=== PATIENT | female | born 1980 | race Caucasian/White ===

== ENCOUNTER 2016-07-10 09:15 | Emergency (ER) | payer MEDICAID ==
[2016-07-10 09:40] VITALS: BP 111/72
[2016-07-10] MEDS ORDERED: HYDROXYZINE PAMOATE 50 MG CAPSULE PO ONE (09:41)
--- NOTE | 2016-07-10 09:49 | ER Document Report ---
ED General - General Chief Complaint: Psych Problem Stated Complaint: PSYCH EVAL/MEDICATION TRAVEL OUTSIDE OF THE U.S. IN LAST 30 DAYS: No - HPI Patient complains to provider of: anxiety Notes: Patient abrasion 2 weeks ago was on train left for [place] came back up in [place]. The patient used to live in [place] patient has a history of a TBI and anxiety issues currently on carbamazepine Ativan and Seroquel patient states she 's been unable to follow-up with the provider since this time is currently out of her Ativan is going to extreme anxiety. Patient otherwise denies any homicidal suicidal thoughts. Otherwise patient looks to be calm vital signs are normal at this time. - Related Data Allergies/Adverse Reactions: aspirin Allergy (Verified 07/10/16 09:20) fluoxetine [From Prozac] Allergy (Verified 07/10/16 09:20) iodine Allergy (Verified 07/10/16 09:20) lithium Allergy (Verified 07/10/16 09:20) paroxetine [From Paxil] Allergy (Verified 07/10/16 09:20) Penicillins Allergy (Verified 07/10/16 09:20) tramadol Allergy (Verified 07/10/16 09:20) Past Medical History - Social History Smoking Status: Unknown if Ever Smoked Family History: Reviewed & Not Pertinent Patient has suicidal ideation: Yes Patient has homicidal ideation: No Renal/ Medical History: Denies: Hx Peritoneal Dialysis Review of Systems - Review of Systems Constitutional: No symptoms reported EENT: No symptoms reported Cardiovascular: No symptoms reported Respiratory: No symptoms reported Gastrointestinal: No symptoms reported Genitourinary: No symptoms reported Female Genitourinary: No symptoms reported Musculoskeletal: No symptoms reported Skin: No symptoms reported Hematologic/Lymphatic: No symptoms reported Neurological/Psychological: Other - Anxiety -: Yes All other systems reviewed and negative Physical Exam - Vital signs Vitals: Temp Pulse Resp BP Pulse Ox 97.6 F 79 18 111/72 99 07/10/16 09:18 07/10/16 09:18 07/10/16 09:18 07/10/16 09:18 07/10/16 09:18 Interpretation: Normal - General General appearance: Appears well, Alert - HEENT Head: Normocephalic, Atraumatic Eyes: Normal Pupils: PERRL - Respiratory Respiratory status: No respiratory distress Chest status: Nontender Breath sounds: Normal Chest palpation: Normal - Cardiovascular Rhythm: Regular Heart sounds: Normal auscultation Murmur: No - Abdominal Inspection: Normal Distension: No distension Bowel sounds: Normal Tenderness: Nontender Organomegaly: No organomegaly - Back Back: Normal, Nontender - Extremities General upper extremity: Normal inspection, Nontender, Normal color, Normal ROM , Normal temperature General lower extremity: Normal inspection, Nontender, Normal color, Normal ROM , Normal temperature, Normal weight bearing. No: Mia's sign - Neurological Neuro grossly intact: Yes Cognition: Normal Orientation: AAOx4 Steward Coma Scale Eye Opening: Spontaneous Steward Coma Scale Verbal: Oriented Steward Coma Scale Motor: Obeys Commands Steward Coma Scale Total: 15 Speech: Normal Motor strength normal: LUE, RUE, LLE, RLE Sensory: Normal - Psychological Associated symptoms: Normal affect, Normal mood - Skin Skin Temperature: Warm Skin Moisture: Dry Skin Color: Normal Course - Re-evaluation Re-evalutation: 07/10/16 10:05 Patient coming in for medication refill evaluation of her anxiety. Patient is accompanied royer she claims is her father however the gentleman states that he is a retired base remover he has been taking care of the patient for last 2 weeks as that she does not have any other family here in [place]. States that her mother lives up in [place]. States that apparently her friends in [place] their own train ended up here in [place]. States that they tried multiple places of which he does name to [place] for the patient be evaluated at however states to no avail patient has not gotten any help. They have denies going to [facility] states a digit contact [facility] and was told to come to the ER at [facility] that she could not be seen at [facility] until she was seen at the [facility] the emergency room. I explained that the patient can be seen in any emergency room in the [facility] for medical clearance examination.. Explained to the patient and to the trauma room at this time patient does not need any IVC criteria also explained that we do not refill prescriptions for controlled substances however at this time we will give the patient a prescription for this drill and give her a dose of Vistaril. Patient becomes upset at this stating that Vistaril does not work for. I explained to the patient that we will give her resources of which to close will be A. No signs of any acute withdrawals medications at this time. At this time patient after explaining we will not refill her Ativan does become agitated however no acute psychosis no homicidal no suicidal ideation is present. Patient looks to be appropriate follow-up as outpatient for her psychiatric needs. - Vital Signs Vital signs: Temp Pulse Resp BP Pulse Ox 97.6 F 79 18 111/72 99 07/10/16 09:18 07/10/16 09:18 07/10/16 09:18 07/10/16 09:18 07/10/16 09:18 Discharge - Discharge Clinical Impression: Anxiety Condition: Good Disposition: HOME, SELF-CARE Instructions: Anxiety (PENDING SALE TO [facility]), Family Physicians / Practices Additional Instructions: Follow-up with the doctors provided. Take medication as prescribed Prescriptions: Hydroxyzine Pamoate [Vistaril 50 mg Capsule] 50 mg PO DAILY #30 capsule Forms: Return to Work
== END 2016-07-10 09:49 | disposition home or self-care (01) ==
LOC: ER 09:15
DX: F41.9 Anxiety disorder, unspecified (principal); Z87.820 Personal history of traumatic brain injury; Z79.899 Other long term (current) drug therapy; Z88.6 Allergy status to analgesic agent; Z88.8 Allergy status to other drugs, medicaments and biological substances; Z88.0 Allergy status to penicillin; Z88.5 Allergy status to narcotic agent
CPT/HCPCS: 99283; J3490

== ENCOUNTER 2016-08-04 19:38 | Emergency (ER) | payer MEDICAID, OTHER ==
[2016-08-04 20:01] VITALS: BP 130/85
[2016-08-04] MEDS ORDERED: HYDROCODONE/ACETAMINOPHEN 5-325 MG TABLET PO ONE (20:51)
[2016-08-04] MEDS ORDERED: LIDOCAINE 5% (700 MG) TRANSDERMAL ADH..PATCH TP ONE (20:51)
--- NOTE | 2016-08-04 20:53 | ER Document Report ---
HPI - HPI Patient complains to provider of: low back pain Onset: Other - 2 weks Onset/Duration: Persistent Quality of pain: Sharp Pain Level: 5 Context: Presents complaining of low back pain for the past 2 weeks. Patient states she was seen in urgent care for this 2 weeks ago and had an injection to her left buttock area. Patient states she followed up with them again a week later and had a repeat injection to the left hip area. Patient is concerned that the injections have caused her to have pain in her left lower extremity. Patient denies any paresthesia or urinary retention or incontinence. Patient denies any fever. Associated Symptoms: Other - low back pain. denies: Fever Exacerbated by: Movement Relieved by: Denies Similar symptoms previously: No Recently seen / treated by doctor: Yes - ROS ROS below otherwise negative: Yes Systems Reviewed and Negative: Yes All other systems reviewed and negative - CONSTITUTIONAL Constitutional: DENIES: Fever, Chills - NEURO Neurology: DENIES: Headache, Weakness - GASTROINTESTINAL Gastrointestinal: DENIES: Nausea, Patient vomiting - URINARY Urinary: DENIES: Dysuria - MUSCULOSKELETAL Musculoskeletal: REPORTS: Extremity pain - Left posterior leg pain, Back Pain Notes: pain to left posterior leg to level of distal thigh - DERM Skin Color: Normal Skin Problems: None Past Medical History - General Information source: Patient - Social History Smoking Status: Never Smoker Frequency of alcohol use: None Drug Abuse: None Lives with: Family Family History: Reviewed & Not Pertinent Patient has suicidal ideation: No Patient has homicidal ideation: No Neurological Medical History: Reports: Hx Cerebrovascular Accident Renal/ Medical History: Denies: Hx Peritoneal Dialysis Psychiatric Medical History: Reports: Hx Anxiety, Hx Post Traumatic Stress Disorder Traumatic Medical History: Reports: Hx Traumatic Brain Injury Past Surgical History: Reports: Hx Hysterectomy, Other - trach-with reversal - Immunizations Hx Diphtheria, Pertussis, Tetanus Vaccination: No Vertical Provider Document - CONSTITUTIONAL Agree With Documented VS: Yes Exam Limitations: No Limitations General Appearance: WD/WN, No Apparent Distress - INFECTION CONTROL TRAVEL OUTSIDE OF THE [place].S. IN LAST 30 DAYS: No - HEENT HEENT: Atraumatic, Normocephalic - NECK Neck: Normal Inspection, Supple - RESPIRATORY Respiratory: Breath Sounds Normal, No Respiratory Distress, Chest Non-Tender O2 Sat by Pulse Oximetry: 98 - CARDIOVASCULAR Cardiovascular: Regular Rate, Regular Rhythm, No Murmur - BACK Back: Abnormal Inspection - left lower lumbar paraspinal tenderness, no deformity or step off. negative: CVA Tenderness-Right, CVA Tenderness-Left - MUSCULOSKELETAL/EXTREMETIES Musculoskeletal/Extremeties: JEANCARLOS SINGH - NEURO Level of Consciousness: Awake, Alert, Appropriate Motor/Sensory: No Motor Deficit, No Sensory Deficit Notes: no saddle anesthesia, no foot drop - DERM Integumentary: Warm, Dry, No Rash Course - Re-evaluation Re-evalutation: 08/04/16 20:52 The patient presents with low back pain without signs of spinal cord compression , cauda equina syndrome, infection, aneurysm, or other serious etiology. The patient is neurologically intact. Given the extremely risk of these diagnoses further testing and evaluation for these possibilities does not appear to be indicated at this time. Patient has been instructed to return if the symptoms worsen or change in any way. - Vital Signs Vital signs: Temp Pulse Resp BP Pulse Ox 97.9 F 89 18 130/85 H 98 08/04/16 19:58 08/04/16 19:58 08/04/16 19:58 08/04/16 19:58 08/04/16 19:58 Discharge - Discharge Clinical Impression: Low back pain Qualifiers: Chronicity: unspecified Back pain laterality: left Sciatica presence: with sciatica Sciatica laterality: sciatica of left side Qualified Code(s): M54.42 - Lumbago with sciatica, left side Sciatica Qualifiers: Laterality: left Qualified Code(s): M54.32 - Sciatica, left side Condition: Stable Disposition: HOME, SELF-CARE Instructions: Ice Packs ([facility]), Oral Narcotic Medication ([facility]), Warm Packs ([facility]) , Low Back Pain ([facility]), Sciatica ([facility]), Steroid Medication Additional Instructions: return as needed for any new or worsening symptoms follow up with your primary care provider Sunday for a recheck Prescriptions: Hydrocodone/Acetaminophen [[place] 5-325 Tablet] 1 each PO TID PRN #15 tablet PRN Reason: Prednisone [Deltasone 20 mg Tablet] 3 tab PO DAILY 4 Days Referrals: [facility] [Provider Group] - Follow up as needed
[2016-08-04] MEDS ORDERED: PREDNISONE 20 MG TABLET PO ONE (20:54)
== END 2016-08-04 21:10 | disposition home or self-care (01) ==
LOC: ER 19:38
DX: M54.42 Lumbago with sciatica, left side (principal); M54.32 Sciatica, left side; M54.5 Low back pain
CPT/HCPCS: 99283; J3490; J7512

== ENCOUNTER 2016-11-14 13:47 | Emergency (ER) | payer MEDICAID ==
[2016-11-14] MEDS ORDERED: LORAZEPAM 1 MG TABLET PO ONE (14:21)
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
[2016-11-14 15:02] LABS: ABSOLUTE EOSINOPHILS # (AUTO) 0.1 10^3/uL (0.0-0.6); ABSOLUTE LYMPHOCYTES (AUTO) 2.4 10^3/uL (0.5-4.7); ABSOLUTE MONOCYTES (AUTO) 0.5 10^3/uL (0.1-1.4); ABSOLUTE NEUT (AUTO) 8.6 10^3/uL (1.7-8.2); BASOPHILS % (AUTO) 0.4 % (0-2); EOSINOPHILS % (AUTO) 0.8 % (0-6); HEMATOCRIT 42.5 % (36.0-47.0); HEMOGLOBIN 13.7 g/dL (12.0-15.5); HGB HCT DIFFERENCE -1.4; LYMPHOCYTES % (AUTO) 20.5 % (13-45); MEAN CORPUSCULAR HEMOGLOBIN 30.4 pg (27.0-33.4); MEAN CORPUSCULAR HGB CONC 32.3 g/dL (32.0-36.0); MEAN CORPUSCULAR VOLUME 94 fl (80-97); MONOCYTES % (AUTO) 4.5 % (3-13); RED BLOOD COUNT 4.51 10^6/uL (3.72-5.28); RED CELL DISTRIBUTION WIDTH 13.3 % (11.5-14.0); SEGMENTED NEUTROPHILS % (AUTO) 73.8 % (42-78); WHITE BLOOD COUNT 11.7 10^3/uL (4.0-10.5)
[2016-11-14 15:27] LABS: ALANINE AMINOTRANSFERASE 14 U/L (9-52); ALKALINE PHOSPHATASE 60 U/L (38-126); ANION GAP 16 (5-19); ASPARTATE AMINO TRANSFERASE 18 U/L (14-36); BILIRUBIN,DIRECT 0.4 mg/dL (0.0-0.4); BILIRUBIN,TOTAL 0.9 mg/dL (0.2-1.3); BLOOD UREA NITROGEN 15 mg/dL (7-20); CALCIUM 10.4 mg/dL (8.4-10.2); CARBON DIOXIDE 21 mmol/L (22-30); CHLORIDE 102 mmol/L (98-107); CREATININE RESULT 0.56 mg/dL (0.52-1.25); GLUCOSE 77 mg/dL (75-110); POTASSIUM 3.8 mmol/L (3.6-5.0); SODIUM 139.4 mmol/L (137-145); TOTAL PROTEIN 7.8 g/dL (6.3-8.2)
[2016-11-14 15:31] LABS: ALCOHOL < 10 mg/dL (NONE DETECTED)
[2016-11-14] MEDS ORDERED: ZIPRASIDONE MESYLATE INJ/PF 20 MG SDV IM ONE (15:47)
[2016-11-14] MEDS ORDERED: BENZTROPINE MESYLATE INJ 2 MG/2 ML AMPULE IM ONE (15:48)
[2016-11-14 16:15] LABS: AMORPHOUS SEDIMENT,URINE TRACE /HPF; APPEARANCE,URINE TURBID; BILIRUBIN,URINE NEGATIVE (NEGATIVE); GLUCOSE, URINE NEGATIVE (NEGATIVE); KETONES,URINE 80 mg/dL (NEGATIVE); LEUKOCYTE ESTERASE,URINE TRACE (NEGATIVE); NITRITE,URINE NEGATIVE (NEGATIVE); PROTEIN,URINE 100 mg/dL (NEGATIVE); URINE SPECIFIC GRAVITY 1.032; UROBILINOGEN,URINE NEGATIVE mg/dL (<2.0)
[2016-11-14 16:31] LABS: URINE BARBITURATES SCREEN NEGATIVE; URINE METHADONE SCREEN NEGATIVE; URINE OPIATES LOW NEGATIVE; URINE PHENCYCLIDINE SCREEN NEGATIVE
--- NOTE | 2016-11-14 17:24 | ER Document Report ---
ED Psych Disorder / Suicide - General Information source: Patient, Law Enforcement - pt arrived via [employer], under IVC petition, [facility] Records TRAVEL OUTSIDE OF THE [place] IN LAST 30 DAYS: No - HPI Patient complains to provider of: Aggression, Agitated, Bizarre behavior Onset: Other Onset was: Cannot confirm Normal mood: No Associated symptoms: Agitated, Combative, Flight of ideas, Uncooperative Similar symptoms previously: Yes Recently seen / treated by doctor: No - unknown <JASON GSAPAR - Last Filed: 11/14/16 17:21> <SUZANNE DENIS - Last Filed: 11/15/16 09:57> <ELIAS HERNÁNDEZ - Last Filed: 11/15/16 10:03> - General Chief Complaint: Psych Problem Stated Complaint: PSYCH EVAL Time Seen by Provider: 11/14/16 13:59 - HPI Notes: Patient arrives via [employer] under IVC, petitioned by mobile crisis. Patient reportedly had a knife in the community and was attempting to commit suicide. Patient received medications to assist her in remaining safe, and for the safety of others. Patient will be reevaluated at a later time, likely in the morning. (JASON GASPAR) - Related Data Allergies/Adverse Reactions: aspirin Allergy (Verified 07/10/16 09:20) fluoxetine [From Prozac] Allergy (Verified 07/10/16 09:20) iodine Allergy (Verified 07/10/16 09:20) lithium Allergy (Verified 07/10/16 09:20) paroxetine [From Paxil] Allergy (Verified 07/10/16 09:20) Penicillins Allergy (Verified 07/10/16 09:20) tramadol Allergy (Verified 07/10/16 09:20) Past Medical History - General Information source: Law Enforcement - Social History Smoking Status: Current Some Day Smoker - Admits to marijuana use Chew tobacco use (# tins/day): No Frequency of alcohol use: None Drug Abuse: Marijuana Family History: Reviewed & Not Pertinent Neurological Medical History: Reports: Hx Cerebrovascular Accident, Hx Seizures Renal/ Medical History: Denies: Hx Peritoneal Dialysis Psychiatric Medical History: Reports: Hx Anxiety, Hx Post Traumatic Stress Disorder Traumatic Medical History: Reports: Hx Traumatic Brain Injury Past Surgical History: Reports: Hx Hysterectomy, Other - trach-with reversal - Immunizations Hx Diphtheria, Pertussis, Tetanus Vaccination: No <JASON GASPAR - Last Filed: 11/14/16 17:21> - Vital signs Vitals: Temp Pulse Resp BP Pulse Ox 97.5 F 59 L 16 113/70 93 11/14/16 17:06 11/14/16 17:06 11/14/16 17:06 11/14/16 17:06 11/14/16 17:06 Course - Laboratory Result Diagrams: 11/14/16 14:45 11/14/16 14:45 <JASON GASPAR - Last Filed: 11/14/16 17:21> - Laboratory Result Diagrams: 11/14/16 14:45 11/14/16 14:45 <SUZANNE DENIS - Last Filed: 11/15/16 09:57> - Laboratory Result Diagrams: 11/14/16 14:45 11/14/16 14:45 <ELIAS HERNÁNDEZ - Last Filed: 11/15/16 10:03> - Vital Signs Vital signs: Temp Pulse Resp BP Pulse Ox 98.5 F 64 14 104/56 L 93 11/14/16 19:08 11/14/16 19:08 11/14/16 19:08 11/14/16 19:08 11/14/16 19:08 - Laboratory Laboratory results interpreted by me: 11/14/16 11/14/16 11/14/16 14:45 14:45 14:52 WBC 11.7 H Absolute Neutrophils 8.6 H Carbon Dioxide 21 L Calcium 10.4 H Urine Protein Urine Ketones Ur Leukocyte Esterase Salicylates < 1.0 L Acetaminophen < 10 L Carbamazepine < 2.4 L 11/14/16 14:52 WBC Absolute Neutrophils Carbon Dioxide Calcium Urine Protein 100 H Urine Ketones 80 H Ur Leukocyte Esterase TRACE H Salicylates Acetaminophen Carbamazepine Discharge <JASON GASPAR - Last Filed: 11/14/16 17:21> <SUZANNE DENIS - Last Filed: 11/15/16 09:57> <ELIAS HERNÁNDEZ - Last Filed: 11/15/16 10:03> - Discharge Clinical Impression: Shawn Condition: Stable Disposition: HOME, SELF-CARE Additional Instructions: Bipolar Disorder (TBI symptoms can mimic) Bipolar disorder is also called manic-depressive disorder. Depression alternates with brain hyperactivity called shawn. Each phase lasts from several days to a few weeks. We don't know exactly what causes bipolar disorder , but it's treatable. During the "manic phase," you may feel elated and energetic. You may have racing thoughts, rapid speech, increased activity, and grandiose ideas. During this time, you may not realize how poor your judgement is. Inappropriate spending, drug abuse, excessive alcohol use, marriage problems, and irresponsible sexual behavior are common during the manic phase. During the "depressive phase," you might feel depressed, guilty, worthless , fatigued, and unable to concentrate. You might have thoughts of suicide. Good treatments are available for bipolar disorder. [place] is a classic drug for bipolar disorder, and is still often useful. If the manic phase is very mild, an antidepressant alone can be prescribed. If the manic phase is very severe, an antipsychotic medicine (such as Haldol) may be needed. The treatment must be matched to your symptoms, so it's important to work closely with your psychiatric care provider. Contact your physician, the hospital emergency center, crisis line, or your counsellor if you are losing control or having self-destructive thoughts. Follow-up: You are to follow up with your outpatient provider at [facility] [place] today as a walk in. [facility] aware of plan. Referrals: [facility] [Outside] - 11/15/16
[2016-11-14] MEDS: OLANZAPINE 5 MG TABLET PO SCH (19:09)
--- NOTE | 2016-11-14 20:13 | EKG REPORT ---
SEVERITY:- ABNORMAL ECG - SINUS ARRHYTHMIA, RATE 50-71 CONSIDER LEFT VENTRICULAR HYPERTROPHY : Confirmed by: Gino Ruvalcaba 14-Nov-2016 20:12:31
[2016-11-15] MEDS: OLANZAPINE 5 MG TABLET PO SCH (07:55)
[2016-11-15] MEDS ORDERED: BENZTROPINE MESYLATE 1 MG TABLET PO SCH (10:00)
--- NOTE | 2016-11-15 10:02 | ER Document Report ---
Doctor's Note Notes: 11/15/16 10:01 Rounds: Chart reviewed and patient reviewed. Vital signs are normal. Lab studies have been essentially normal. White count of 11,700, but no shift. Patient appears to be medically stable for transfer or discharge. Patient has been assessed by mental health and feels she can be discharged to follow-up today at [facility]. Claribel Pollack MD
[2016-11-15 10:17] VITALS: BP 131/87
== END 2016-11-15 10:10 | disposition home or self-care (01) ==
LOC: ER 13:47
DX: F30.9 Manic episode, unspecified (principal); F17.200 Nicotine dependence, unspecified, uncomplicated; Z86.73 Personal history of transient ischemic attack (TIA), and cerebral infarction without residual deficits; Z87.820 Personal history of traumatic brain injury; Z90.710 Acquired absence of both cervix and uterus; Z88.0 Allergy status to penicillin; Z88.6 Allergy status to analgesic agent
CPT/HCPCS: 93005; 99285; 96372; 36415; 80307 ×4; 80156; 84703; 85025; 80053; 81001; 93010; J3490 ×3; J0515; J3486

== ENCOUNTER 2016-11-24 12:45 | Emergency (ER) | payer MEDICAID, OTHER ==
[2016-11-24] MEDS ORDERED: PREDNISONE 20 MG TABLET PO ONE (13:11)
[2016-11-24] MEDS ORDERED: IPRATROPIUM/ALBUTEROL 0.5-2.5 MG/3 ML AMPUL NEB ONE (13:11)
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
[2016-11-24] MEDS ORDERED: ALBUTEROL SULFATE HFA (90 MCG/PUFF) 8 GM MDI (1 MDI/ER DISP) IH ONE (14:19)
--- NOTE | 2016-11-24 14:23 | RADIOLOGY REPORT (SQ) ---
EXAM DESCRIPTION: CHEST PA/LAT COMPLETED DATE/TIME: 11/24/2016 2:14 pm REASON FOR STUDY: diff breathing COMPARISON: None. EXAM PARAMETERS: NUMBER OF VIEWS: two views TECHNIQUE: Digital Frontal and Lateral radiographic views of the chest acquired. RADIATION DOSE: NA LIMITATIONS: none FINDINGS: LUNGS AND PLEURA: No opacities, masses or pneumothorax. No pleural effusion. MEDIASTINUM AND HILAR STRUCTURES: No masses or contour abnormalities. HEART AND VASCULAR STRUCTURES: Heart normal size. No evidence for failure. BONES: No acute findings. HARDWARE: None in the chest. OTHER: No other significant finding. IMPRESSION: NO SIGNIFICANT RADIOGRAPHIC FINDING IN THE CHEST. TECHNICAL DOCUMENTATION: JOB ID: [id number] [employer]- All Rights Reserved
[2016-11-24 14:42] VITALS: BP 145/78
== END 2016-11-24 14:42 | disposition home or self-care (01) ==
LOC: ER 12:45 → EEVIPCON 12:45 → ER 14:42
DX: J45.901 Unspecified asthma with (acute) exacerbation (principal); R05 Cough; F41.9 Anxiety disorder, unspecified; Z79.899 Other long term (current) drug therapy
CPT/HCPCS: 94640; 99285; 71020; J7512; J3490; J7620

== ENCOUNTER 2016-11-26 14:21 | Emergency (ER) | payer OTHER, MEDICAID ==
[2016-11-26 14:41] VITALS: BP 101/54
[2016-11-26] MEDS ORDERED: HALOPERIDOL 5 MG TABLET PO ONE (14:42)
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
[2016-11-26] MEDS ORDERED: LORAZEPAM 1 MG TABLET PO PRN (14:51)
[2016-11-26 15:04] LABS: APPEARANCE,URINE CLOUDY; BILIRUBIN,URINE NEGATIVE (NEGATIVE); GLUCOSE, URINE NEGATIVE (NEGATIVE); KETONES,URINE TRACE mg/dL (NEGATIVE); LEUKOCYTE ESTERASE,URINE NEGATIVE (NEGATIVE); NITRITE,URINE NEGATIVE (NEGATIVE); PROTEIN,URINE 100 mg/dL (NEGATIVE); URINE SPECIFIC GRAVITY 1.029; UROBILINOGEN,URINE NEGATIVE mg/dL (<2.0)
[2016-11-26 15:20] LABS: URINE BARBITURATES SCREEN NEGATIVE; URINE METHADONE SCREEN NEGATIVE; URINE OPIATES LOW NEGATIVE; URINE PHENCYCLIDINE SCREEN NEGATIVE
[2016-11-26 15:44] LABS: ALANINE AMINOTRANSFERASE 16 U/L (9-52); ALBUMIN 4.6 g/dL (3.5-5.0); ALKALINE PHOSPHATASE 51 U/L (38-126); ANION GAP 10 (5-19); ASPARTATE AMINO TRANSFERASE 13 U/L (14-36); BILIRUBIN,DIRECT 0.4 mg/dL (0.0-0.4); BILIRUBIN,TOTAL 0.4 mg/dL (0.2-1.3); BLOOD UREA NITROGEN 10 mg/dL (7-20); CALCIUM 10.2 mg/dL (8.4-10.2); CARBON DIOXIDE 22 mmol/L (22-30); CHLORIDE 106 mmol/L (98-107); CREATININE RESULT 0.48 mg/dL (0.52-1.25); GLUCOSE 117 mg/dL (75-110); POTASSIUM 4.1 mmol/L (3.6-5.0); SODIUM 137.5 mmol/L (137-145); TOTAL PROTEIN 7.2 g/dL (6.3-8.2)
[2016-11-26 15:45] LABS: ALCOHOL < 10 mg/dL (NONE DETECTED)
[2016-11-26 15:53] LABS: HEMATOCRIT 38.4 % (36.0-47.0); HEMOGLOBIN 12.9 g/dL (12.0-15.5); HGB HCT DIFFERENCE 0.3; MEAN CORPUSCULAR HEMOGLOBIN 30.8 pg (27.0-33.4); MEAN CORPUSCULAR HGB CONC 33.6 g/dL (32.0-36.0); MEAN CORPUSCULAR VOLUME 92 fl (80-97); RED BLOOD COUNT 4.19 10^6/uL (3.72-5.28); RED CELL DISTRIBUTION WIDTH 13.2 % (11.5-14.0); WHITE BLOOD COUNT 16.3 10^3/uL (4.0-10.5)
[2016-11-26 15:56] LABS: BASOPHILS % (MANUAL) 0 % (0-2); EOSINOPHILS % (MANUAL) 0 % (0-6); LYMPHOCYTES % (MANUAL) 4 % (13-45); RBC MORPHOLOGY COMMENT NORMO-CYTIC/CHROMIC; TOTAL CELLS COUNTED 100
--- NOTE | 2016-11-26 16:26 | EKG REPORT ---
SEVERITY:- BORDERLINE ECG - SINUS RHYTHM PROBABLE LEFT ATRIAL ABNORMALITY : Confirmed by: Duncan Barboza MD 26-Nov-2016 16:26:01
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
== END 2016-11-26 16:57 | disposition home or self-care (01) ==
LOC: ER 14:21
DX: F31.9 Bipolar disorder, unspecified (principal); R06.00 Dyspnea, unspecified; F17.200 Nicotine dependence, unspecified, uncomplicated; Z88.6 Allergy status to analgesic agent; Z88.0 Allergy status to penicillin; Z87.820 Personal history of traumatic brain injury; Z59.0 Homelessness; Z86.73 Personal history of transient ischemic attack (TIA), and cerebral infarction without residual deficits; Z90.710 Acquired absence of both cervix and uterus
CPT/HCPCS: 36415; 80053; 80307; 81001; 85025; 93005; 93010; 99285

== ENCOUNTER 2016-12-22 11:16 | Emergency (ER) | payer MEDICAID, OTHER ==
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
[2016-12-22 11:38] VITALS: BP 107/74
== END 2016-12-22 13:05 | disposition home or self-care (01) ==
LOC: ER 11:16
DX: R55 Syncope and collapse (principal); R53.1 Weakness; M79.1 Myalgia; Y09 Assault by unspecified means; Z87.820 Personal history of traumatic brain injury; Z88.6 Allergy status to analgesic agent; Z88.0 Allergy status to penicillin; Z86.73 Personal history of transient ischemic attack (TIA), and cerebral infarction without residual deficits; Z90.710 Acquired absence of both cervix and uterus
CPT/HCPCS: 99284

== ENCOUNTER 2017-02-15 19:03 | Emergency (ER) | payer MEDICAID ==
[2017-02-15 19:28] VITALS: BP 132/84
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
== END 2017-02-15 20:05 | disposition left against medical advice (07) ==
LOC: ER 19:03 → EEVIPCON 19:03 → ER 20:05
DX: F41.9 Anxiety disorder, unspecified (principal); Z53.20 Procedure and treatment not carried out because of patient's decision for unspecified reasons; M54.2 Cervicalgia; J45.909 Unspecified asthma, uncomplicated; F17.200 Nicotine dependence, unspecified, uncomplicated; Z88.0 Allergy status to penicillin; Z88.5 Allergy status to narcotic agent; Z88.8 Allergy status to other drugs, medicaments and biological substances; Z88.6 Allergy status to analgesic agent
CPT/HCPCS: 99281

== ENCOUNTER 2017-02-19 17:09 | Emergency (ER) | payer MEDICAID ==
[2017-02-19] MEDS ORDERED: LORAZEPAM 1 MG TABLET PO ONE (17:50)
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
[2017-02-19 18:44] LABS: ABSOLUTE BASOPHILS # (AUTO) 0.1 10^3/uL (0.0-0.2); ABSOLUTE EOSINOPHILS # (AUTO) 0.1 10^3/uL (0.0-0.6); ABSOLUTE LYMPHOCYTES (AUTO) 2.9 10^3/uL (0.5-4.7); ABSOLUTE MONOCYTES (AUTO) 0.7 10^3/uL (0.1-1.4); BASOPHILS % (AUTO) 0.8 % (0-2); EOSINOPHILS % (AUTO) 1.1 % (0-6); HEMATOCRIT 40.8 % (36.0-47.0); HGB HCT DIFFERENCE 1.2; LYMPHOCYTES % (AUTO) 24.4 % (13-45); MEAN CORPUSCULAR HEMOGLOBIN 30.9 pg (27.0-33.4); MEAN CORPUSCULAR HGB CONC 34.2 g/dL (32.0-36.0); MEAN CORPUSCULAR VOLUME 90 fl (80-97); MONOCYTES % (AUTO) 5.7 % (3-13); RED BLOOD COUNT 4.52 10^6/uL (3.72-5.28); RED CELL DISTRIBUTION WIDTH 13.2 % (11.5-14.0); WHITE BLOOD COUNT 11.8 10^3/uL (4.0-10.5)
[2017-02-19 19:03] LABS: ALANINE AMINOTRANSFERASE 23 U/L (9-52); ALBUMIN 4.5 g/dL (3.5-5.0); ALKALINE PHOSPHATASE 53 U/L (38-126); ANION GAP 12 (5-19); ASPARTATE AMINO TRANSFERASE 23 U/L (14-36); BILIRUBIN,DIRECT 0.3 mg/dL (0.0-0.4); BILIRUBIN,TOTAL 0.7 mg/dL (0.2-1.3); BLOOD UREA NITROGEN 12 mg/dL (7-20); CALCIUM 9.8 mg/dL (8.4-10.2); CARBON DIOXIDE 24 mmol/L (22-30); CHLORIDE 105 mmol/L (98-107); CREATININE RESULT 0.54 mg/dL (0.52-1.25); GLUCOSE 88 mg/dL (75-110); LIPASE 94.9 U/L (23-300); POTASSIUM 3.6 mmol/L (3.6-5.0); SODIUM 141.3 mmol/L (137-145); TOTAL PROTEIN 7.2 g/dL (6.3-8.2)
[2017-02-19 19:06] LABS: APPEARANCE,URINE CLOUDY; BILIRUBIN,URINE MODERATE (NEGATIVE); GLUCOSE, URINE NEGATIVE (NEGATIVE); KETONES,URINE 20 mg/dL (NEGATIVE); LEUKOCYTE ESTERASE,URINE MODERATE (NEGATIVE); NITRITE,URINE NEGATIVE (NEGATIVE); PROTEIN,URINE 100 mg/dL (NEGATIVE); URINE SPECIFIC GRAVITY 1.041
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
[2017-02-19 19:35] VITALS: BP 121/77
== END 2017-02-19 19:51 | disposition home or self-care (01) ==
LOC: ER 17:09
DX: N39.0 Urinary tract infection, site not specified (principal); R31.9 Hematuria, unspecified; R10.13 Epigastric pain; M54.2 Cervicalgia; M25.512 Pain in left shoulder; Y04.0XXA Assault by unarmed brawl or fight, initial encounter; Z87.891 Personal history of nicotine dependence
CPT/HCPCS: 36415; 80053; 81001; 81025; 83690; 85025; 99284

== ENCOUNTER 2017-03-10 09:14 | Emergency (ER) | payer OTHER ==
[2017-03-10 09:30] VITALS: BP 108/58
== END 2017-03-10 10:30 ==
LOC: ER 09:14
DX: Z53.9 Procedure and treatment not carried out, unspecified reason (principal); M79.1 Myalgia

== ENCOUNTER 2017-05-09 21:05 | Emergency (ER) | payer MEDICAID, OTHER ==
--- NOTE | 2017-05-09 22:21 | EKG REPORT ---
SEVERITY:- BORDERLINE ECG - SINUS TACHYCARDIA PROBABLE LEFT ATRIAL ABNORMALITY : Confirmed by: Gino Ruvalcaba 09-May-2017 22:20:34
[2017-05-09] MEDS ORDERED: LIDOCAINE 5% (700 MG) TRANSDERMAL ADH..PATCH TP ONE (22:49)
[2017-05-09] MEDS ORDERED: NAPROXEN 250 MG TABLET PO ONE (22:49)
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
[2017-05-09 23:10] LABS: APPEARANCE,URINE CLEAR; BILIRUBIN,URINE NEGATIVE (NEGATIVE); COLOR,URINE STRAW; GLUCOSE, URINE NEGATIVE (NEGATIVE); KETONES,URINE NEGATIVE (NEGATIVE); LEUKOCYTE ESTERASE,URINE NEGATIVE (NEGATIVE); NITRITE,URINE NEGATIVE (NEGATIVE); PROTEIN,URINE NEGATIVE (NEGATIVE); URINE SPECIFIC GRAVITY 1.006; UROBILINOGEN,URINE NEGATIVE mg/dL (<2.0)
[2017-05-09 23:13] LABS: URINE AMPHETAMINES SCREEN NEGATIVE; URINE BARBITURATES SCREEN NEGATIVE; URINE BENZODIAZEPINES SCREEN NEGATIVE; URINE COCAINE SCREEN NEGATIVE; URINE MARIJUANA (THC) SCREEN UNCONFIRMED POSITIVE; URINE METHADONE SCREEN NEGATIVE; URINE PHENCYCLIDINE SCREEN NEGATIVE
[2017-05-09 23:16] VITALS: BP 120/79
== END 2017-05-09 23:16 | disposition home or self-care (01) ==
LOC: ER 21:05
DX: S16.1XXA Strain of muscle, fascia and tendon at neck level, initial encounter (principal); X58.XXXA Exposure to other specified factors, initial encounter; Z87.820 Personal history of traumatic brain injury; Z88.6 Allergy status to analgesic agent; Z91.040 Latex allergy status; Z88.0 Allergy status to penicillin; Z90.710 Acquired absence of both cervix and uterus
CPT/HCPCS: 80307; 81001; 81025; 93005; 93010; 99284

== ENCOUNTER 2017-06-20 21:47 | Emergency (ER) | payer MEDICAID ==
[2017-06-20] MEDS ORDERED: ZIPRASIDONE MESYLATE INJ/PF 20 MG SDV IM ONE (22:06)
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
[2017-06-20] MEDS ORDERED: IBUPROFEN 600 MG TABLET PO ONE (22:51)
--- NOTE | 2017-06-20 22:53 | RADIOLOGY REPORT (SQ) ---
EXAM DESCRIPTION: SHOULDER LEFT 2 OR MORE VIEWS COMPLETED DATE/TIME: 06/20/2017 10:33 pm REASON FOR STUDY: left shoulder pain COMPARISON: None. NUMBER OF VIEWS: Three views. TECHNIQUE: Internal rotation, external rotation, and Y view images acquired of the left shoulder. LIMITATIONS: None. FINDINGS: MINERALIZATION: Normal. BONES: No acute fracture or dislocation. No worrisome bone lesions. JOINTS: No dislocation. VISUALIZED LUNGS AND RIBS: No pneumothorax. No rib fracture. SOFT TISSUES: No radiopaque foreign body. OTHER: No other significant finding. IMPRESSION: NO RADIOGRAPHIC EVIDENCE OF ACUTE INJURY. TECHNICAL DOCUMENTATION: JOB ID: [id number] [place]-72 2010 [employer]- All Rights Reserved Reading location - IP/workstation name: [email or web address]
--- NOTE | 2017-06-20 22:54 | RADIOLOGY REPORT (SQ) ---
EXAM DESCRIPTION: TIBIA FIBULA LEFT COMPLETED DATE/TIME: 06/20/2017 10:33 pm REASON FOR STUDY: left art pain COMPARISON: None. NUMBER OF VIEWS: Two views. TECHNIQUE: Two radiographic images acquired of the left tibia and fibula to include the knee and ank le in at least one projection. LIMITATIONS: None. FINDINGS: MINERALIZATION: Normal. BONES: No acute fracture or dislocation. No worrisome bone lesions. SOFT TISSUES: No obvious swelling or foreign body. OTHER: No other significant finding. IMPRESSION: NO RADIOGRAPHIC EVIDENCE OF ACUTE INJURY. TECHNICAL DOCUMENTATION: JOB ID: [id number] [place]-72 2010 [employer]- All Rights Reserved Reading location - IP/workstation name: [email or web address]
--- NOTE | 2017-06-20 22:56 | RADIOLOGY REPORT (SQ) ---
EXAM DESCRIPTION: FEMUR LEFT COMPLETED DATE/TIME: 06/20/2017 10:33 pm REASON FOR STUDY: left thigh pain COMPARISON: None. NUMBER OF VIEWS: Two views. TECHNIQUE: Two radiographic images acquired of the left femur to include hip and knee in at least on e projection. LIMITATIONS: None. FINDINGS: MINERALIZATION: Normal. BONES: No acute fracture. 10 mm subcortical cyst in the anterior femoral head-neck junction. SOFT TISSUES: No obvious swelling or foreign body. OTHER: No other significant finding. IMPRESSION: NO RADIOGRAPHIC EVIDENCE OF ACUTE INJURY. TECHNICAL DOCUMENTATION: JOB ID: [id number] [place]-72 2010 [employer]- All Rights Reserved Reading location - IP/workstation name: [email or web address]
[2017-06-20 23:17] VITALS: BP 125/76
== END 2017-06-20 23:05 | disposition home or self-care (01) ==
LOC: ER 21:47
DX: S40.012A Contusion of left shoulder, initial encounter (principal); S70.12XA Contusion of left thigh, initial encounter; S80.12XA Contusion of left lower leg, initial encounter; M25.512 Pain in left shoulder; M79.605 Pain in left leg; M79.652 Pain in left thigh; W03.XXXA Other fall on same level due to collision with another person, initial encounter; F41.9 Anxiety disorder, unspecified; F32.9 Major depressive disorder, single episode, unspecified; Z87.820 Personal history of traumatic brain injury; F17.200 Nicotine dependence, unspecified, uncomplicated; J45.909 Unspecified asthma, uncomplicated
CPT/HCPCS: 99283; 73552; 73030; 73590; J3490

== ENCOUNTER 2017-09-11 17:07 | Emergency (ER) | payer MEDICAID ==
[2017-09-11 17:18] VITALS: BP 103/63
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
== END 2017-09-11 17:57 | disposition home or self-care (01) ==
LOC: ER 17:07
DX: S01.112D Laceration without foreign body of left eyelid and periocular area, subsequent encounter (principal); X58.XXXD Exposure to other specified factors, subsequent encounter; J45.909 Unspecified asthma, uncomplicated

== ENCOUNTER 2017-09-19 15:57 | Emergency (ER) | payer MEDICAID ==
[2017-09-19 16:06] VITALS: BP 126/93
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
[2017-09-19 17:03] LABS: ABSOLUTE EOSINOPHILS # (AUTO) 0.1 10^3/uL (0.0-0.6); ABSOLUTE LYMPHOCYTES (AUTO) 2.6 10^3/uL (0.5-4.7); ABSOLUTE MONOCYTES (AUTO) 0.7 10^3/uL (0.1-1.4); ABSOLUTE NEUT (AUTO) 6.7 10^3/uL (1.7-8.2); BASOPHILS % (AUTO) 0.4 % (0-2); EOSINOPHILS % (AUTO) 1.5 % (0-6); HEMATOCRIT 36.7 % (36.0-47.0); HEMOGLOBIN 12.6 g/dL (12.0-15.5); LYMPHOCYTES % (AUTO) 25.7 % (13-45); MEAN CORPUSCULAR HEMOGLOBIN 31.2 pg (27.0-33.4); MEAN CORPUSCULAR HGB CONC 34.3 g/dL (32.0-36.0); MEAN CORPUSCULAR VOLUME 91 fl (80-97); MONOCYTES % (AUTO) 6.4 % (3-13); PLATELET COUNT 222 10^3/uL (150-450); RED BLOOD COUNT 4.04 10^6/uL (3.72-5.28); RED CELL DISTRIBUTION WIDTH 13.8 % (11.5-14.0); TOTAL CELLS COUNTED % (AUTO) 100 %; WHITE BLOOD COUNT 10.2 10^3/uL (4.0-10.5)
[2017-09-19 17:19] LABS: APPEARANCE,URINE SLIGHTLY-CLOUDY; BILIRUBIN,URINE NEGATIVE (NEGATIVE); COLOR,URINE YELLOW; GLUCOSE, URINE NEGATIVE (NEGATIVE); KETONES,URINE 20 mg/dL (NEGATIVE); LEUKOCYTE ESTERASE,URINE LARGE (NEGATIVE); NITRITE,URINE NEGATIVE (NEGATIVE); PROTEIN,URINE NEGATIVE (NEGATIVE); URINE SPECIFIC GRAVITY 1.009; UROBILINOGEN,URINE NEGATIVE mg/dL (<2.0)
[2017-09-19 17:22] LABS: ALANINE AMINOTRANSFERASE 20 U/L (9-52); ALBUMIN 4.6 g/dL (3.5-5.0); ALKALINE PHOSPHATASE 55 U/L (38-126); ANION GAP 13 (5-19); ASPARTATE AMINO TRANSFERASE 22 U/L (14-36); BILIRUBIN,DIRECT 0.2 mg/dL (0.0-0.4); BILIRUBIN,TOTAL 0.7 mg/dL (0.2-1.3); BLOOD UREA NITROGEN 9 mg/dL (7-20); CALCIUM 9.7 mg/dL (8.4-10.2); CARBON DIOXIDE 24 mmol/L (22-30); CHLORIDE 104 mmol/L (98-107); GLUCOSE 91 mg/dL (75-110); POTASSIUM 3.6 mmol/L (3.6-5.0); SODIUM 141.4 mmol/L (137-145); TOTAL PROTEIN 7.5 g/dL (6.3-8.2)
[2017-09-19 17:24] LABS: URINE AMPHETAMINES SCREEN NEGATIVE; URINE BARBITURATES SCREEN NEGATIVE; URINE BENZODIAZEPINES SCREEN NEGATIVE; URINE COCAINE SCREEN NEGATIVE; URINE MARIJUANA (THC) SCREEN UNCONFIRMED POSITIVE; URINE METHADONE SCREEN NEGATIVE; URINE PHENCYCLIDINE SCREEN NEGATIVE
[2017-09-19 17:25] LABS: ACETAMINOPHEN < 10 ug/mL (10-30); ALCOHOL < 10 mg/dL (NONE DETECTED); SALICYLATE < 1.0 mg/dL (2.0-20.0)
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
--- NOTE | 2017-09-19 22:02 | EKG REPORT ---
SEVERITY:- ABNORMAL ECG - SINUS RHYTHM CONSIDER LEFT VENTRICULAR HYPERTROPHY : Confirmed by: Gino Ruvalcaba 19-Sep-2017 22:01:49
== END 2017-09-19 17:40 | disposition left against medical advice (07) ==
LOC: ER 15:57
DX: R45.851 Suicidal ideations (principal); S09.90XA Unspecified injury of head, initial encounter; S67.22XA Crushing injury of left hand, initial encounter; Y04.8XXA Assault by other bodily force, initial encounter; Z88.6 Allergy status to analgesic agent; Z91.040 Latex allergy status; Z88.0 Allergy status to penicillin; Z90.710 Acquired absence of both cervix and uterus; Z87.820 Personal history of traumatic brain injury; Z86.73 Personal history of transient ischemic attack (TIA), and cerebral infarction without residual deficits
CPT/HCPCS: 36415; 70450; 80053; 80307; 81001; 84703; 85025; 93005; 93010; 99281

== ENCOUNTER 2018-02-22 00:27 | Emergency (ER) | payer MEDICAID ==
[2018-02-22] MEDS ORDERED: HALOPERIDOL LACTATE INJ 5 MG/1 ML VIAL IV ONE (00:52)
[2018-02-22] MEDS ORDERED: DIAZEPAM INJ 10 MG/2 ML DISP.SYRIN IV ONE (00:53)
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
[2018-02-22 01:14] LABS: ABSOLUTE BASOPHILS # (AUTO) 0.1 10^3/uL (0.0-0.2); ABSOLUTE EOSINOPHILS # (AUTO) 0.4 10^3/uL (0.0-0.6); ABSOLUTE LYMPHOCYTES (AUTO) 3.7 10^3/uL (0.5-4.7); ABSOLUTE MONOCYTES (AUTO) 0.9 10^3/uL (0.1-1.4); ABSOLUTE NEUT (AUTO) 8.6 10^3/uL (1.7-8.2); BASOPHILS % (AUTO) 0.9 % (0-2); EOSINOPHILS % (AUTO) 2.9 % (0-6); HEMATOCRIT 39.5 % (36.0-47.0); HEMOGLOBIN 13.4 g/dL (12.0-15.5); LYMPHOCYTES % (AUTO) 27.2 % (13-45); MEAN CORPUSCULAR HEMOGLOBIN 31.6 pg (27.0-33.4); MEAN CORPUSCULAR VOLUME 93 fl (80-97); MONOCYTES % (AUTO) 6.4 % (3-13); PLATELET COUNT 249 10^3/uL (150-450); RED BLOOD COUNT 4.24 10^6/uL (3.72-5.28); RED CELL DISTRIBUTION WIDTH 13.5 % (11.5-14.0); SEGMENTED NEUTROPHILS % (AUTO) 62.6 % (42-78); TOTAL CELLS COUNTED % (AUTO) 100 %; WHITE BLOOD COUNT 13.7 10^3/uL (4.0-10.5)
[2018-02-22 01:31] LABS: ACETAMINOPHEN < 10 ug/mL (10-30); ALANINE AMINOTRANSFERASE 13 U/L (9-52); ALBUMIN 4.6 g/dL (3.5-5.0); ALCOHOL < 10 mg/dL (NONE DETECTED); ALKALINE PHOSPHATASE 63 U/L (38-126); ANION GAP 10 (5-19); ASPARTATE AMINO TRANSFERASE 20 U/L (14-36); BILIRUBIN,DIRECT 0.2 mg/dL (0.0-0.4); BILIRUBIN,TOTAL 0.3 mg/dL (0.2-1.3); BLOOD UREA NITROGEN 14 mg/dL (7-20); CALCIUM 9.9 mg/dL (8.4-10.2); CARBON DIOXIDE 23 mmol/L (22-30); CHLORIDE 105 mmol/L (98-107); GLUCOSE 110 mg/dL (75-110); POTASSIUM 4.3 mmol/L (3.6-5.0); SALICYLATE < 1.0 mg/dL (2.0-20.0); SODIUM 137.9 mmol/L (137-145); TOTAL PROTEIN 7.3 g/dL (6.3-8.2)
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
[2018-02-22] MEDS ORDERED: LORAZEPAM 0.5 MG TABLET PO ONE (06:36)
--- NOTE | 2018-02-22 07:55 | EKG REPORT ---
SEVERITY:- NORMAL ECG - SINUS RHYTHM : Confirmed by: Duncan Barboza MD 22-Feb-2018 07:54:53
--- NOTE | 2018-02-22 09:18 | ER Document Report ---
Doctor's Note Notes: Patient presented last night acutely manic, extremely pressured speech, racing thoughts, unable to provide clear or cogent history. Oscillating between anger, crying, smiling rapidly. Does not appear to be overtly responding to internal stimuli but does have a known history of shawn and appears to be off all medications by her own report. 02/22/18 09:18 As the rounding physician this AM, I assessed the patient's labs, vitals, and records. No concerning findings this morning. Patient denies any acute complaints. Patient is cleared for disposition by psychiatry. After extensive researching by our psychology team they received medical records from [place] which clearly show the patient to be a drug seeker, malingerer. IVC was rescinded and patient was discharged home with no medication recommendations. PHYSICAL EXAMINATION: GENERAL: Well-appearing, well-nourished and in no acute distress. HEAD: Atraumatic, normocephalic. EYES: Pupils equal round extraocular movements intact, conjunctiva are normal. ENT: Nares patent NECK: Normal range of motion LUNGS: No respiratory distress Musculoskeletal: Normal range of motion NEUROLOGICAL: Normal speech, normal gait. PSYCH: Denies suicidal ideation. SKIN: Warm, Dry, normal turgor, no rashes or lesions noted. 02/22/18 18:20 02/22/18 18:22
[2018-02-22 10:45] VITALS: BP 108/60
[2018-02-22 11:08] LABS: APPEARANCE,URINE CLEAR; BILIRUBIN,URINE NEGATIVE (NEGATIVE); COLOR,URINE YELLOW; GLUCOSE, URINE NEGATIVE (NEGATIVE); KETONES,URINE NEGATIVE (NEGATIVE); LEUKOCYTE ESTERASE,URINE NEGATIVE (NEGATIVE); NITRITE,URINE NEGATIVE (NEGATIVE); PROTEIN,URINE NEGATIVE (NEGATIVE); UROBILINOGEN,URINE NEGATIVE mg/dL (<2.0)
[2018-02-22 11:23] LABS: URINE AMPHETAMINES SCREEN NEGATIVE; URINE BARBITURATES SCREEN NEGATIVE; URINE BENZODIAZEPINES SCREEN UNCONFIRMED POSITIVE; URINE COCAINE SCREEN NEGATIVE; URINE MARIJUANA (THC) SCREEN UNCONFIRMED POSITIVE; URINE METHADONE SCREEN NEGATIVE; URINE PHENCYCLIDINE SCREEN NEGATIVE
[2018-02-22] MEDS ORDERED: LANSOPRAZOLE 30 MG TAB.RAP.DR PO SCH (13:00)
[2018-02-22] MEDS ORDERED: GABAPENTIN 300 MG CAPSULE PO SCH (14:00)
[2018-02-22] MEDS ORDERED: GABAPENTIN 400 MG CAPSULE PO SCH (14:00)
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
[2018-02-23] MEDS ORDERED: (PENDING PHARMACY ID) (Esomeprazole Mag Trihydrate [Nexium] 40 MG) PO SCH (10:00)
== END 2018-02-22 13:24 | disposition home or self-care (01) ==
LOC: ER 00:27
DX: R45.1 Restlessness and agitation (principal); F30.9 Manic episode, unspecified; M79.602 Pain in left arm; R45.4 Irritability and anger
CPT/HCPCS: 93005; 99285; 96374; 96375; 36415; 80307 ×4; 84703; 85025; 80053; 81001; 84484; 71045; 93010; J3360; J1630

== ENCOUNTER 2018-02-24 17:49 | Emergency (ER) | payer MEDICAID | END 2018-02-24 18:35 | disposition left against medical advice (07) | LOC: ER 17:49 | DX: Z53.21 Procedure and treatment not carried out due to patient leaving prior to being seen by health care provider (principal) ==

== ENCOUNTER 2018-02-25 02:00 | Emergency (ER) | payer MEDICAID ==
[2018-02-25 02:33] VITALS: BP 130/76
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
[2018-02-25] MEDS ORDERED: ACETAMINOPHEN 325 MG TABLET PO ONE (03:37)
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
== END 2018-02-25 04:50 | disposition home or self-care (01) ==
LOC: ER 02:00 → EEVIPCON 02:00 → ER 04:50
DX: F60.89 Other specific personality disorders (principal); R45.1 Restlessness and agitation; Z88.0 Allergy status to penicillin; Z88.8 Allergy status to other drugs, medicaments and biological substances; Z88.6 Allergy status to analgesic agent; Z91.040 Latex allergy status
CPT/HCPCS: 72070; 72110; 72170; 99284

== ENCOUNTER 2018-02-28 12:39 | Emergency (ER) | payer MEDICAID ==
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
[2018-02-28 13:39] LABS: ABSOLUTE EOSINOPHILS # (AUTO) 0.1 10^3/uL (0.0-0.6); ABSOLUTE LYMPHOCYTES (AUTO) 1.6 10^3/uL (0.5-4.7); ABSOLUTE MONOCYTES (AUTO) 0.4 10^3/uL (0.1-1.4); ABSOLUTE NEUT (AUTO) 4.8 10^3/uL (1.7-8.2); BASOPHILS % (AUTO) 0.5 % (0-2); EOSINOPHILS % (AUTO) 1.6 % (0-6); HEMATOCRIT 37.2 % (36.0-47.0); HEMOGLOBIN 12.7 g/dL (12.0-15.5); LYMPHOCYTES % (AUTO) 23.4 % (13-45); MEAN CORPUSCULAR HEMOGLOBIN 31.4 pg (27.0-33.4); MEAN CORPUSCULAR HGB CONC 34.2 g/dL (32.0-36.0); MEAN CORPUSCULAR VOLUME 92 fl (80-97); MONOCYTES % (AUTO) 5.3 % (3-13); PLATELET COUNT 237 10^3/uL (150-450); RED BLOOD COUNT 4.05 10^6/uL (3.72-5.28); RED CELL DISTRIBUTION WIDTH 13.1 % (11.5-14.0); SEGMENTED NEUTROPHILS % (AUTO) 69.2 % (42-78); TOTAL CELLS COUNTED % (AUTO) 100 %
[2018-02-28 14:00] LABS: ALANINE AMINOTRANSFERASE 8 U/L (9-52); ALBUMIN 4.1 g/dL (3.5-5.0); ALKALINE PHOSPHATASE 49 U/L (38-126); ANION GAP 6 (5-19); ASPARTATE AMINO TRANSFERASE 25 U/L (14-36); BILIRUBIN,DIRECT 0.2 mg/dL (0.0-0.4); BILIRUBIN,TOTAL 0.3 mg/dL (0.2-1.3); BLOOD UREA NITROGEN 13 mg/dL (7-20); CALCIUM 9.6 mg/dL (8.4-10.2); CARBON DIOXIDE 26 mmol/L (22-30); CHLORIDE 106 mmol/L (98-107); GLUCOSE 104 mg/dL (75-110); POTASSIUM 4.1 mmol/L (3.6-5.0); SODIUM 138.3 mmol/L (137-145); TOTAL PROTEIN 6.5 g/dL (6.3-8.2)
[2018-02-28 14:03] LABS: ACETAMINOPHEN < 10 ug/mL (10-30); ALCOHOL < 10 mg/dL (NONE DETECTED); SALICYLATE < 1.0 mg/dL (2.0-20.0)
--- NOTE | 2018-02-28 14:28 | RADIOLOGY REPORT (SQ) ---
EXAM DESCRIPTION: CT HEAD WITHOUT COMPLETED DATE/TIME: 02/28/2018 2:20 pm REASON FOR STUDY: 3hw; fall COMPARISON: None. TECHNIQUE: Axial images acquired through the brain without intravenous contrast. Images reviewed wi th bone, brain and subdural windows. Additional sagittal and coronal reconstructions were generated. Images stored on PACS. All CT scanners at this facility use dose modulation, iterative reconstruction, and/or weight based d osing when appropriate to reduce radiation dose to as low as reasonably achievable (ALARA). [facility]: Dose Right [facility]: CareDose [facility]: Dose Right [facility]: Teradose 4D [facility]: Smart Char Software RADIATION DOSE: CT Rad equipment meets quality standard of care and radiation dose reduction techniq ues were employed. CTDIvol: 23.1 mGy. DLP: 453 mGy-cm. mGy. LIMITATIONS: None. FINDINGS: VENTRICLES: Normal size and contour. CEREBRUM: No masses. No hemorrhage. No midline shift. No evidence for acute infarction. Normal gra y/white matter differentiation. No areas of low density in the white matter. CEREBELLUM: No masses. No hemorrhage. No alteration of density. No evidence for acute infarction. EXTRAAXIAL SPACES: No fluid collections. No masses. ORBITS AND GLOBE: No intra- or extraconal masses. Normal contour of globe without masses. CALVARIUM: No fracture. PARANASAL SINUSES: No fluid or mucosal thickening. SOFT TISSUES: Soft tissue hematoma over the left forehead. OTHER: No other significant finding. IMPRESSION: NO ACUTE INTRACRANIAL IMAGING FINDINGS. EVIDENCE OF ACUTE STROKE: NO. COMMENT: Quality ID # [id number]: Final reports with documentation of one or more dose reduction techniques (e.g., Automated exposure control, adjustment of the mA and/or kV according to patient size, use of iterative reconstruction technique) TECHNICAL DOCUMENTATION: JOB ID: [id number] [employer]- All Rights Reserved Reading location - IP/workstation name: [email or web address]
--- NOTE | 2018-02-28 14:30 | RADIOLOGY REPORT (SQ) ---
EXAM DESCRIPTION: CT CERVICAL SPINE WITHOUT COMPLETED DATE/TIME: 02/28/2018 2:20 pm REASON FOR STUDY: 3hw; fall COMPARISON: None. TECHNIQUE: Axial images acquired through the cervical spine without intravenous contrast. Images re viewed with lung, soft tissue and bone windows. Reconstructed coronal and sagittal MPR images review ed. Images stored on PACS. All CT scanners at this facility use dose modulation, iterative reconstruction, and/or weight based d osing when appropriate to reduce radiation dose to as low as reasonably achievable (ALARA). [facility]: Dose Right [facility]: CareDose [facility]: Dose Right [facility]: Teradose 4D [facility]: Smart [employer] RADIATION DOSE: CT Rad equipment meets quality standard of care and radiation dose reduction techniq ues were employed. CTDIvol: 13.4 mGy. DLP: 316 mGy-cm. mGy. LIMITATIONS: None. FINDINGS: ALIGNMENT: Anatomic. MINERALIZATION: Normal. VERTEBRAL BODIES: No fractures or dislocation. DISCS: No significant disc disease. FACETS, LATERAL MASSES, POSTERIOR ELEMENTS: No fractures. No dislocation. No acute findings. HARDWARE: None in the spine. VISUALIZED RIBS: No fractures. LUNG APICES AND SOFT TISSUES: No significant or acute findings. OTHER: No other significant finding. IMPRESSION: No fracture or static subluxation of the cervical spine. TECHNICAL DOCUMENTATION: JOB ID: [id number] Quality ID # [id number]: Final reports with documentation of one or more dose reduction techniques (e.g., Au tomated exposure control, adjustment of the mA and/or kV according to patient size, use of iterative reconstruction technique) 2010 [employer]- All Rights Reserved Reading location - IP/workstation name: [email or web address]
[2018-02-28] MEDS ORDERED: BACITRACIN ZINC OINTMENT 15 GM TP ONE (15:04)
[2018-02-28 15:59] VITALS: BP 114/73
== END 2018-02-28 15:59 | disposition home or self-care (01) ==
LOC: ER 12:39 → EEVIPCON 12:39 → ER 15:59
DX: S06.9X9A Unspecified intracranial injury with loss of consciousness of unspecified duration, initial encounter (principal); S00.83XA Contusion of other part of head, initial encounter; W19.XXXA Unspecified fall, initial encounter; Y92.480 Sidewalk as the place of occurrence of the external cause; J45.909 Unspecified asthma, uncomplicated; Z88.6 Allergy status to analgesic agent; Z88.8 Allergy status to other drugs, medicaments and biological substances; Z91.040 Latex allergy status; Z88.0 Allergy status to penicillin; Z88.5 Allergy status to narcotic agent
CPT/HCPCS: 36415; 70450; 72125; 80053; 80307; 84703; 85025; 99284; J3490

== ENCOUNTER 2018-03-23 05:11 | Emergency (ER) | payer OTHER ==
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
[2018-03-23 11:04] VITALS: BP 95/48
[2018-03-23 15:01] LABS: BACTERIA (WET MOUNT) 3+ BACTERIA SEEN; RBCS (WET MOUNT) RARE RBCS SEEN; T.VAGINALIS (WET MOUNT) NO TRICHOMONAS SEEN; WBCS (WET MOUNT) 1+ WBCS SEEN; YEAST (WET MOUNT) NO YEAST SEEN
[2018-03-23 16:31] LABS: CHLAM PCR NOT DETECTED (NOT DETECT); GON PCR NOT DETECTED (NOT DETECT)
== END 2018-03-23 14:28 | disposition home or self-care (01) ==
LOC: ER 05:11
DX: T74.21XA Adult sexual abuse, confirmed, initial encounter (principal); R45.6 Violent behavior; F17.200 Nicotine dependence, unspecified, uncomplicated; J45.909 Unspecified asthma, uncomplicated; Z88.6 Allergy status to analgesic agent; Z88.8 Allergy status to other drugs, medicaments and biological substances; Z91.040 Latex allergy status; Z88.0 Allergy status to penicillin; Z88.5 Allergy status to narcotic agent
CPT/HCPCS: 87210; 87491; 87591; 99285

== ENCOUNTER 2018-04-03 08:53 | Emergency (ER) | payer OTHER ==
[2018-04-03 08:59] VITALS: BP 124/84
[2018-04-03] MEDS ORDERED: LORAZEPAM INJ 2 MG/1 ML VIAL IM ONE (09:21)
[2018-04-03] MEDS ORDERED: HALOPERIDOL LACTATE INJ 5 MG/1 ML VIAL IM ONE (09:21)
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
[2018-04-03 13:06] LABS: ABSOLUTE EOSINOPHILS # (AUTO) 0.1 10^3/uL (0.0-0.6); ABSOLUTE LYMPHOCYTES (AUTO) 2.1 10^3/uL (0.5-4.7); ABSOLUTE MONOCYTES (AUTO) 0.5 10^3/uL (0.1-1.4); ABSOLUTE NEUT (AUTO) 5.2 10^3/uL (1.7-8.2); BASOPHILS % (AUTO) 0.4 % (0-2); EOSINOPHILS % (AUTO) 1.2 % (0-6); HEMATOCRIT 40.7 % (36.0-47.0); LYMPHOCYTES % (AUTO) 26.8 % (13-45); MEAN CORPUSCULAR HEMOGLOBIN 31.5 pg (27.0-33.4); MEAN CORPUSCULAR HGB CONC 34.3 g/dL (32.0-36.0); MEAN CORPUSCULAR VOLUME 92 fl (80-97); MONOCYTES % (AUTO) 5.9 % (3-13); PLATELET COUNT 222 10^3/uL (150-450); RED BLOOD COUNT 4.42 10^6/uL (3.72-5.28); RED CELL DISTRIBUTION WIDTH 12.6 % (11.5-14.0); SEGMENTED NEUTROPHILS % (AUTO) 65.7 % (42-78); TOTAL CELLS COUNTED % (AUTO) 100 %; WHITE BLOOD COUNT 7.9 10^3/uL (4.0-10.5)
[2018-04-03 13:23] LABS: ALANINE AMINOTRANSFERASE 20 U/L (9-52); ALBUMIN 4.4 g/dL (3.5-5.0); ALKALINE PHOSPHATASE 46 U/L (38-126); ANION GAP 7 (5-19); ASPARTATE AMINO TRANSFERASE 20 U/L (14-36); BILIRUBIN,DIRECT 0.2 mg/dL (0.0-0.4); BILIRUBIN,TOTAL 0.6 mg/dL (0.2-1.3); BLOOD UREA NITROGEN 15 mg/dL (7-20); CALCIUM 9.5 mg/dL (8.4-10.2); CARBON DIOXIDE 27 mmol/L (22-30); CHLORIDE 106 mmol/L (98-107); GLUCOSE 54 mg/dL (75-110); POTASSIUM 4.4 mmol/L (3.6-5.0); SODIUM 140.2 mmol/L (137-145); TOTAL PROTEIN 6.7 g/dL (6.3-8.2)
[2018-04-03 13:25] LABS: ACETAMINOPHEN < 10 ug/mL (10-30); ALCOHOL < 10 mg/dL (NONE DETECTED); SALICYLATE < 1.0 mg/dL (2.0-20.0)
--- NOTE | 2018-04-03 13:58 | EKG REPORT ---
SEVERITY:- ABNORMAL ECG - SINUS RHYTHM CONSIDER LEFT VENTRICULAR HYPERTROPHY : Confirmed by: Duncan Barboza MD 03-Apr-2018 13:57:24
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
== END 2018-04-03 15:30 ==
LOC: ER 08:53
DX: S06.9X0A Unspecified intracranial injury without loss of consciousness, initial encounter (principal); R07.81 Pleurodynia; F32.9 Major depressive disorder, single episode, unspecified; F41.9 Anxiety disorder, unspecified; F20.9 Schizophrenia, unspecified; Z88.6 Allergy status to analgesic agent; Z91.040 Latex allergy status; Z88.0 Allergy status to penicillin; Z90.49 Acquired absence of other specified parts of digestive tract; Z90.710 Acquired absence of both cervix and uterus
CPT/HCPCS: 93005; 99285; 96372; 36415; 80307 ×3; 85025; 80053; 71111; 70450; 93010; J1630; J2060

== ENCOUNTER → 2018-07-08 | Outpatient (CLI) | payer MEDICAID ==
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
== END ==
LOC: RAD 18:03
PROVIDERS: ATTEND Nurse Practitioner Acute Care
DX: M25.512 Pain in left shoulder (principal); M54.42 Lumbago with sciatica, left side; M25.552 Pain in left hip
CPT/HCPCS: 72170

== ENCOUNTER 2018-08-21 18:37 | Emergency (ER) | payer MEDICAID ==
[2018-08-21] MEDS ORDERED: HALOPERIDOL LACTATE INJ 5 MG/1 ML VIAL IM ONE (18:43)
[2018-08-21] MEDS ORDERED: LORAZEPAM INJ 2 MG/1 ML VIAL IM ONE ×2 (18:44→18:59)
[2018-08-21] MEDS ORDERED: BENZTROPINE MESYLATE INJ 2 MG/2 ML AMPULE IM ONE ×2 (18:44→19:02)
[2018-08-21] MEDS ORDERED: CHLORPROMAZINE HCL INJ 25 MG/1 ML AMPULE IM ONE (18:58)
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
[2018-08-21 22:21] LABS: ABSOLUTE EOSINOPHILS # (AUTO) 0.2 10^3/uL (0.0-0.6); ABSOLUTE LYMPHOCYTES (AUTO) 2.4 10^3/uL (0.5-4.7); ABSOLUTE MONOCYTES (AUTO) 0.7 10^3/uL (0.1-1.4); ABSOLUTE NEUT (AUTO) 6.6 10^3/uL (1.7-8.2); BASOPHILS % (AUTO) 0.3 % (0-2); EOSINOPHILS % (AUTO) 2.4 % (0-6); HEMOGLOBIN 12.4 g/dL (12.0-15.5); LYMPHOCYTES % (AUTO) 23.8 % (13-45); MEAN CORPUSCULAR HEMOGLOBIN 30.9 pg (27.0-33.4); MEAN CORPUSCULAR HGB CONC 33.6 g/dL (32.0-36.0); MEAN CORPUSCULAR VOLUME 92 fl (80-97); MONOCYTES % (AUTO) 6.8 % (3-13); PLATELET COUNT 197 10^3/uL (150-450); RED BLOOD COUNT 4.03 10^6/uL (3.72-5.28); RED CELL DISTRIBUTION WIDTH 13.2 % (11.5-14.0); SEGMENTED NEUTROPHILS % (AUTO) 66.7 % (42-78); TOTAL CELLS COUNTED % (AUTO) 100 %; WHITE BLOOD COUNT 9.9 10^3/uL (4.0-10.5)
[2018-08-21 22:40] LABS: ALANINE AMINOTRANSFERASE 23 U/L (9-52); ALBUMIN 3.7 g/dL (3.5-5.0); ALKALINE PHOSPHATASE 53 U/L (38-126); ANION GAP 6 (5-19); ASPARTATE AMINO TRANSFERASE 17 U/L (14-36); BILIRUBIN,DIRECT 0.1 mg/dL (0.0-0.4); BILIRUBIN,TOTAL 0.3 mg/dL (0.2-1.3); BLOOD UREA NITROGEN 12 mg/dL (7-20); CALCIUM 9.2 mg/dL (8.4-10.2); CARBON DIOXIDE 27 mmol/L (22-30); CHLORIDE 104 mmol/L (98-107); GLUCOSE 79 mg/dL (75-110); POTASSIUM 3.6 mmol/L (3.6-5.0); SODIUM 137.1 mmol/L (137-145); TOTAL PROTEIN 6.1 g/dL (6.3-8.2)
[2018-08-21 22:43] LABS: ACETAMINOPHEN < 10 ug/mL (10-30); ALCOHOL < 10 mg/dL (NONE DETECTED); SALICYLATE < 1.0 mg/dL (2.0-20.0)
[2018-08-22] MEDS ORDERED: BENZTROPINE MESYLATE 1 MG TABLET PO SCH ×2 (02:15→10:00)
[2018-08-22] MEDS ORDERED: CHLORPROMAZINE HCL 25 MG TABLET PO SCH ×2 (02:15→10:00)
[2018-08-22] MEDS ORDERED: OLANZAPINE 5 MG TABLET PO SCH ×2 (02:15→10:00)
[2018-08-22 08:04] VITALS: BP 110/60
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
--- NOTE | 2018-08-22 10:22 | EKG REPORT ---
SEVERITY:- BORDERLINE ECG - SINUS RHYTHM BORDERLINE PROLONGED QT INTERVAL : Confirmed by: Anabel Burks MD 22-Aug-2018 10:21:13
[2018-08-22] MEDS ORDERED: CARBAMAZEPINE 200 MG TABLET PO SCH (12:15)
== END 2018-08-22 13:25 | disposition home or self-care (01) ==
LOC: ER 18:37
DX: F91.8 Other conduct disorders (principal); R45.4 Irritability and anger; F17.200 Nicotine dependence, unspecified, uncomplicated; J45.909 Unspecified asthma, uncomplicated
CPT/HCPCS: 93005; 99285; 96372; 96374; 96375; 36415; 80307 ×3; 80156; 84703; 85025; 80053; 93010; J0515; J3230; J2060; 80074; 86701

== ENCOUNTER 2018-10-02 14:19 | Emergency (ER) | payer MEDICAID, OTHER ==
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
[2018-10-02] MEDS ORDERED: TUBERCULIN,PURIF.PROT.DERIV. 5 TU/0.1 ML TEST 1 ML VIAL ID ONE (15:02)
[2018-10-02 15:50] LABS: ABSOLUTE BASOPHILS # (AUTO) 0.1 10^3/uL (0.0-0.2); ABSOLUTE EOSINOPHILS # (AUTO) 0.2 10^3/uL (0.0-0.6); ABSOLUTE LYMPHOCYTES (AUTO) 2.7 10^3/uL (0.5-4.7); ABSOLUTE MONOCYTES (AUTO) 0.5 10^3/uL (0.1-1.4); ABSOLUTE NEUT (AUTO) 5.8 10^3/uL (1.7-8.2); BASOPHILS % (AUTO) 0.7 % (0-2); EOSINOPHILS % (AUTO) 2.4 % (0-6); LYMPHOCYTES % (AUTO) 28.8 % (13-45); MEAN CORPUSCULAR HEMOGLOBIN 30.6 pg (27.0-33.4); MEAN CORPUSCULAR HGB CONC 33.5 g/dL (32.0-36.0); MEAN CORPUSCULAR VOLUME 92 fl (80-97); MONOCYTES % (AUTO) 5.1 % (3-13); PLATELET COUNT 193 10^3/uL (150-450); RED BLOOD COUNT 4.26 10^6/uL (3.72-5.28); RED CELL DISTRIBUTION WIDTH 13.1 % (11.5-14.0); TOTAL CELLS COUNTED % (AUTO) 100 %; WHITE BLOOD COUNT 9.2 10^3/uL (4.0-10.5)
[2018-10-02 15:53] LABS: APPEARANCE,URINE SLIGHTLY-CLOUDY; BILIRUBIN,URINE NEGATIVE (NEGATIVE); COLOR,URINE YELLOW; GLUCOSE, URINE NEGATIVE (NEGATIVE); KETONES,URINE TRACE mg/dL (NEGATIVE); LEUKOCYTE ESTERASE,URINE SMALL (NEGATIVE); NITRITE,URINE NEGATIVE (NEGATIVE); PROTEIN,URINE NEGATIVE (NEGATIVE); URINE SPECIFIC GRAVITY 1.021; UROBILINOGEN,URINE NEGATIVE mg/dL (<2.0)
[2018-10-02 16:05] LABS: ALANINE AMINOTRANSFERASE 21 U/L (9-52); ALBUMIN 4.4 g/dL (3.5-5.0); ALKALINE PHOSPHATASE 41 U/L (38-126); ANION GAP 9 (5-19); ASPARTATE AMINO TRANSFERASE 25 U/L (14-36); BILIRUBIN,DIRECT 0.3 mg/dL (0.0-0.4); BILIRUBIN,TOTAL 0.5 mg/dL (0.2-1.3); BLOOD UREA NITROGEN 13 mg/dL (7-20); CALCIUM 9.4 mg/dL (8.4-10.2); CARBON DIOXIDE 27 mmol/L (22-30); CHLORIDE 104 mmol/L (98-107); GLUCOSE 96 mg/dL (75-110); POTASSIUM 3.9 mmol/L (3.6-5.0); TOTAL PROTEIN 7.1 g/dL (6.3-8.2)
[2018-10-02 16:06] LABS: ACETAMINOPHEN < 10 ug/mL (10-30); ALCOHOL < 10 mg/dL (NONE DETECTED); SALICYLATE < 1.0 mg/dL (2.0-20.0)
[2018-10-02 16:07] LABS: URINE AMPHETAMINES SCREEN NEGATIVE; URINE BARBITURATES SCREEN NEGATIVE; URINE BENZODIAZEPINES SCREEN NEGATIVE; URINE COCAINE SCREEN NEGATIVE; URINE MARIJUANA (THC) SCREEN UNCONFIRMED POSITIVE; URINE METHADONE SCREEN NEGATIVE; URINE PHENCYCLIDINE SCREEN NEGATIVE
[2018-10-02] MEDS ORDERED: HYDROXYZINE HCL 10 MG TABLET PO PRN (17:06)
[2018-10-02] MEDS ORDERED: ALBUTEROL SULFATE HFA (90 MCG/PUFF) 8 GM MDI (1 MDI/ER DISP) IH PRN (17:10)
[2018-10-02] MEDS ORDERED: PROPRANOLOL HCL 10 MG TABLET PO SCH (17:15)
[2018-10-02] MEDS: CETIRIZINE 10 MG TABLET PO SCH (17:43)
[2018-10-02] MEDS: LIDOCAINE 5% (700 MG) TRANSDERMAL ADH..PATCH TP SCH (18:19)
[2018-10-02] MEDS: PROPRANOLOL HCL 10 MG TABLET PO SCH (18:57)
[2018-10-02] MEDS: CELECOXIB 100 MG CAPSULE PO SCH (19:10)
[2018-10-02] MEDS: CARBAMAZEPINE 200 MG TABLET PO SCH (22:35)
[2018-10-03] MEDS: PROPRANOLOL HCL 10 MG TABLET PO SCH ×5 (00:14→23:46)
[2018-10-03] MEDS ORDERED: PROPRANOLOL HCL 10 MG TABLET ONE (06:25)
--- NOTE | 2018-10-03 08:08 | EKG REPORT ---
SEVERITY:- ABNORMAL ECG - SINUS RHYTHM LEFT VENTRICULAR HYPERTROPHY : Confirmed by: Anabel Burks MD 02-Oct-2018 21:30:57
--- NOTE | 2018-10-03 10:36 | ER Document Report ---
Doctor's Note Notes: 10/03/18 10:34 Rounds: Chart reviewed and patient interviewed. Patient is rather hyper. Here under court order to be held until transferred to a facility for treating traumatic brain injury in [place]. Vital signs are all normal. Labs are normal except for blood in urine. Positive marijuana. Auscultation of the heart reveals a regular, rate and rhythm. Patient appears to be medically stable for transfer or discharge. Marty Pollack MD
[2018-10-03] MEDS: LIDOCAINE 5% (700 MG) TRANSDERMAL ADH..PATCH TP SCH (10:45)
[2018-10-03] MEDS: CETIRIZINE 10 MG TABLET PO SCH (10:45)
[2018-10-03] MEDS: CELECOXIB 100 MG CAPSULE PO SCH (10:45)
[2018-10-03] MEDS: ALBUTEROL SULFATE HFA (90 MCG/PUFF) 8 GM MDI (1 MDI/ER DISP) IH PRN (13:39)
[2018-10-03] MEDS: BENZTROPINE MESYLATE 1 MG TABLET PO SCH (16:35)
[2018-10-03] MEDS: CARBAMAZEPINE 200 MG TABLET PO SCH (23:04)
[2018-10-04] MEDS: PROPRANOLOL HCL 10 MG TABLET PO SCH ×3 (06:31→18:51)
[2018-10-04] MEDS: CELECOXIB 100 MG CAPSULE PO SCH (08:04)
[2018-10-04] MEDS: LIDOCAINE 5% (700 MG) TRANSDERMAL ADH..PATCH TP SCH (09:57)
[2018-10-04] MEDS: BENZTROPINE MESYLATE 1 MG TABLET PO SCH (09:57)
[2018-10-04] MEDS: CETIRIZINE 10 MG TABLET PO SCH (09:57)
--- NOTE | 2018-10-04 17:37 | ER Document Report ---
Doctor's Note Notes: 10/04/18 17:33 Patient who is here being held according to a court order that she stay here until she is able to be transferred to a TBI clinic in [place]. Patient currently concerned because she has not received any of her medications also complains that she is allergic to pork. I did review her home medications and these have been ordered. Patient will be given her propranolol so long as her systolic blood pressure is greater than 100 mmHg. Patient is otherwise stable. Patient will remain here per court order until she is able to go to the TBI clinic in [place]. On physical examination patient does have slightly pressured speech and is somewhat agitated about the fact that she was given ta yesterday and ham today. There is no evidence that the patient is suffering from any ill effects from the pork products however we have requested with dietary that they not send any further pork products. GENERAL: Sleeping when I walk into the room, then awakens easily, now alert, interacts well. No acute distress. HEAD: Normocephalic, atraumatic EYES: Pupils equal, round and reactive to light, extraocular movements intact. ENT: Oral mucosa moist, tongue midline. NECK: Full range of motion, supple, trachea midline. LUNGS: no respiratory distress. EXTREMITIES: Moves all 4 extremities spontaneously, no edema. No cyanosis. NEUROLOGICAL: Alert and oriented x3, normal speech. PSYCH: Somewhat angry and agitated. SKIN: Warm, Dry, normal turgor, no rashes or lesions noted.
[2018-10-04] MEDS: CARBAMAZEPINE 200 MG TABLET PO SCH (23:06)
[2018-10-05] MEDS: PROPRANOLOL HCL 10 MG TABLET PO SCH ×4 (06:23→18:12)
[2018-10-05] MEDS: ALBUTEROL SULFATE HFA (90 MCG/PUFF) 8 GM MDI (1 MDI/ER DISP) IH PRN ×2 (07:52→15:06)
[2018-10-05] MEDS: BENZTROPINE MESYLATE 1 MG TABLET PO SCH (10:33)
[2018-10-05] MEDS: CELECOXIB 100 MG CAPSULE PO SCH (10:41)
[2018-10-05] MEDS: CETIRIZINE 10 MG TABLET PO SCH (10:41)
[2018-10-05] MEDS: LIDOCAINE 5% (700 MG) TRANSDERMAL ADH..PATCH TP SCH (10:41)
[2018-10-05] MEDS ORDERED: LIDOCAINE 5% (700 MG) TRANSDERMAL ADH..PATCH TP ONE (12:41)
--- NOTE | 2018-10-05 13:56 | ER Document Report ---
Doctor's Note Notes: 10/05/18 13:51 Patient is awake and alert, complaining that we gave her ta with her breakfast. I will once again discuss with dietary that the patient prefers not to eat pork products. She states she is allergic, but is not showing any signs of allergic reaction. Patient also complains of pain to her low back that is usually treated with a Lidoderm patch. Patient will be treated with a Lidoderm patch as well. GENERAL: Alert, interacts well. No acute distress. HEAD: Normocephalic, atraumatic EYES: Pupils equal, round and reactive to light, extraocular movements intact. ENT: Oral mucosa moist, tongue midline. NECK: Full range of motion, supple, trachea midline. LUNGS: no respiratory distress. Clear to auscultation bilaterally HEART: Regular rate and rhythm no murmurs gallops or rubs. BACK: Nontender to palpation, no stepoffs or deformities, no midline tenderness. EXTREMITIES: Moves all 4 extremities spontaneously, no edema. No cyanosis. NEUROLOGICAL: Alert and oriented x3, unslurred speech, though rapid. PSYCH: Somewhat confrontational, speech is a little rapid. SKIN: Warm, Dry, normal turgor, no rashes or lesions noted. We are still attempting to arrange transport to the treatment facility in [place] as ordered by the court. 10/05/18 18:16 Medications were reverified and slightly adjusted. We are now giving Tegretol 200 mg 2 tabs at 8 AM, 2 tabs at 4 PM and 1 tab at bedtime daily, she is also receiving gabapentin 600 mg by mouth every 8 hours and her Brio Ellipta inhaler 100-25 mcg inhaler 1 puff/day.
[2018-10-05] MEDS: GABAPENTIN 300 MG CAPSULE PO SCH (19:10)
[2018-10-06] MEDS: PROPRANOLOL HCL 10 MG TABLET PO SCH ×4 (00:04→17:54)
[2018-10-06] MEDS: CARBAMAZEPINE 200 MG TABLET PO SCH ×4 (00:06→22:56)
[2018-10-06] MEDS: GABAPENTIN 300 MG CAPSULE PO SCH ×3 (02:26→22:56)
[2018-10-06] MEDS: ALBUTEROL SULFATE HFA (90 MCG/PUFF) 8 GM MDI (1 MDI/ER DISP) IH PRN ×2 (06:43→12:38)
[2018-10-06] MEDS: CELECOXIB 100 MG CAPSULE PO SCH (08:33)
[2018-10-06] MEDS ORDERED: LIDOCAINE 5% (700 MG) TRANSDERMAL ADH..PATCH TP ONE ×2 (09:30→11:25)
[2018-10-06] MEDS ORDERED: BENZTROPINE MESYLATE 1 MG TABLET PO ONE (09:30)
[2018-10-06] MEDS ORDERED: CETIRIZINE 10 MG TABLET PO ONE (09:30)
[2018-10-06] MEDS: FLUTICASONE/VILANTEROL 100-25 MCG/DOSE IH SCH (09:52)
[2018-10-06] MEDS ORDERED: HYDROCORTISONE ACETATE 25 MG SUPP.RECT PR ONE (10:56)
[2018-10-06] MEDS ORDERED: ACETAMINOPHEN 325 MG TABLET PO ONE (10:56)
--- NOTE | 2018-10-06 10:56 | ER Document Report ---
Doctor's Note Notes: 10/06/18 10:55 I have evaluated t his pt. this am and she has no c/o at this time. She feels all of her needs are being met and her physical exam is normal. She is awaiting placement per mental health.
[2018-10-07] MEDS: ALBUTEROL SULFATE HFA (90 MCG/PUFF) 8 GM MDI (1 MDI/ER DISP) IH PRN (04:05)
[2018-10-07] MEDS: PROPRANOLOL HCL 10 MG TABLET PO SCH ×5 (07:42→23:33)
[2018-10-07] MEDS ORDERED: LIDOCAINE 5% (700 MG) TRANSDERMAL ADH..PATCH TP SCH (08:00)
[2018-10-07] MEDS: CELECOXIB 100 MG CAPSULE PO SCH (08:34)
[2018-10-07] MEDS: CARBAMAZEPINE 200 MG TABLET PO SCH ×3 (08:34→23:33)
[2018-10-07] MEDS: CETIRIZINE 10 MG TABLET PO SCH (08:34)
[2018-10-07] MEDS: GABAPENTIN 300 MG CAPSULE PO SCH ×3 (08:35→23:31)
[2018-10-07] MEDS: BENZTROPINE MESYLATE 1 MG TABLET PO SCH (08:35)
[2018-10-07] MEDS: LIDOCAINE 5% (700 MG) TRANSDERMAL ADH..PATCH TP SCH (09:30)
[2018-10-07] MEDS: FLUTICASONE/VILANTEROL 100-25 MCG/DOSE IH SCH (10:32)
--- NOTE | 2018-10-07 19:55 | ER Document Report ---
Doctor's Note Notes: 10/07/18 19:53 Late entry. Patient was seen and evaluated earlier today. Chart reviewed and patient interviewed. Patient is very talkative and difficult to understand what she is talking about. Vital signs are all essentially normal. Patient has not had any recent labs done. She was admitted to our emergency department on October 02. Patient appears to be medically stable for transfer or discharge. Marty Pollack MD
[2018-10-08] MEDS: PROPRANOLOL HCL 10 MG TABLET PO SCH ×4 (06:55→23:05)
[2018-10-08] MEDS: GABAPENTIN 300 MG CAPSULE PO SCH ×3 (06:55→23:04)
[2018-10-08] MEDS ORDERED: IBUPROFEN 600 MG TABLET PO ONE (07:25)
[2018-10-08] MEDS: CELECOXIB 100 MG CAPSULE PO SCH (07:49)
[2018-10-08] MEDS: CETIRIZINE 10 MG TABLET PO SCH (07:50)
[2018-10-08] MEDS: CARBAMAZEPINE 200 MG TABLET PO SCH ×3 (07:50→23:05)
[2018-10-08] MEDS: LIDOCAINE 5% (700 MG) TRANSDERMAL ADH..PATCH TP SCH (07:52)
[2018-10-08] MEDS: BENZTROPINE MESYLATE 1 MG TABLET PO SCH (07:59)
--- NOTE | 2018-10-08 10:00 | ER Document Report ---
Doctor's Note Notes: 10/08/18 09:58 Rounds: Chart reviewed and patient interviewed. Patient was somewhat limited mental capacity, apparently related to an old head injury and traumatic brain injury. Vital signs are all normal. No lab studies to review recently. I have started to ask patient some medical questions and she wanted me to close the door which I declined to do. I do not want to be in an enclosed area with this patient for various reasons. When I told her I was not going to close the door, she said she did not want to talk and so I left the room. Patient appears to be medically stable for transfer or discharge. Marty Pollack MD
[2018-10-08] MEDS: CHLORPROMAZINE HCL 50 MG TABLET PO PRN (10:21)
[2018-10-08] MEDS: FLUTICASONE/VILANTEROL 100-25 MCG/DOSE IH SCH (10:22)
--- NOTE | 2018-10-08 11:41 | PSYCHOLOGICAL NOTE ---
Psych Note - Psych Note Date seen by psych provider: 10/08/18 Time seen by psych provider: 07:15 - Observation, interaction started at 0715 and ongoing. Psych Note: Presenting Problem: Initially 24 Hour IVC Petition (10/02/18) due to behavioral outburst while in court Sunday (10/04/18) for competency hearing. She has a Hx of TBI. She had been deemed incompetent and [facility] DSS/APS is legal guardian. Today patient presented demanding and was easily agitated when she did not get what she wanted when she wanted it. She was verbally aggressive with medical staff, yelling, cursing and threatening. She slammed her door shut multiple times. She came into the hallway with her breakfast and threw it across the floor. She became tearful and cries a couple times. She did not handle redirection well. Diagnosis: (obtained from 02/22/18 ED visit and behavioral health consult) History of TBI per history provided by patient's psychiatry staff during previous inpatient at [facility] Cocaine use disorder per history provided by patient's psychiatry staff during previous inpatient at [facility] Cannabis use disorder, severe provided by patient psychiatry staff during previous inpatient at [facility] Somatic Delusion Disorder; with bizarre content provided by patient psychiatry staff during previous inpatient at [facility] Cluster B personality characteristics noted during current [facility] visit and provided by patient psychiatry staff during previous inpatient at [facility] Impression/Plan: Recommendation to IVC patient. She presented impulsive, labile (euthymic, angry), with an inability to manage both her behaviors and emotions. She was screaming and yelling, cursing and threatening medical staff. This also caused disturbance for other patients in her area. Consulted with Dr. Ibarra regarding the management and care of patient. ED Physician in agreement with recommendations. Dr. Ibarra and [facility] DSS/APS involved in trying to obtain placement at multiple facilities in [place].
[2018-10-09] MEDS: GABAPENTIN 300 MG CAPSULE PO SCH ×3 (06:45→22:41)
[2018-10-09] MEDS: PROPRANOLOL HCL 10 MG TABLET PO SCH ×4 (06:45→23:54)
[2018-10-09] MEDS: BENZTROPINE MESYLATE 1 MG TABLET PO SCH ×2 (08:40→08:48)
[2018-10-09] MEDS: CARBAMAZEPINE 200 MG TABLET PO SCH ×3 (08:40→22:42)
[2018-10-09] MEDS: CELECOXIB 100 MG CAPSULE PO SCH (08:40)
[2018-10-09] MEDS: CETIRIZINE 10 MG TABLET PO SCH (08:40)
[2018-10-09] MEDS: LIDOCAINE 5% (700 MG) TRANSDERMAL ADH..PATCH TP SCH (08:41)
[2018-10-09] MEDS: FLUTICASONE/VILANTEROL 100-25 MCG/DOSE IH SCH (09:27)
--- NOTE | 2018-10-09 10:58 | ER Document Report ---
Doctor's Note Notes: 10/09/18 10:57 Rounds: Chart reviewed and patient interviewed briefly. No change in situation. Vital signs are all normal. No new labs to assess. director of volunteer services and discharge planning are working on placement of this patient patient appears to be medically stable for transfer or discharge. Marty Pollack MD
[2018-10-10] MEDS ORDERED: HYDROCORTISONE ACETATE 25 MG SUPP.RECT PR ONE ×2 (03:57→22:35)
[2018-10-10] MEDS: PROPRANOLOL HCL 10 MG TABLET PO SCH ×3 (06:42→18:08)
[2018-10-10] MEDS: GABAPENTIN 300 MG CAPSULE PO SCH ×3 (06:42→22:54)
[2018-10-10] MEDS: LIDOCAINE 5% (700 MG) TRANSDERMAL ADH..PATCH TP SCH (08:35)
[2018-10-10] MEDS: CETIRIZINE 10 MG TABLET PO SCH (08:35)
[2018-10-10] MEDS: CELECOXIB 100 MG CAPSULE PO SCH (08:36)
[2018-10-10] MEDS: CARBAMAZEPINE 200 MG TABLET PO SCH ×3 (08:37→22:55)
[2018-10-10] MEDS: BENZTROPINE MESYLATE 1 MG TABLET PO SCH (09:18)
--- NOTE | 2018-10-10 10:05 | ER Document Report ---
Doctor's Note Notes: 10/10/18 10:04 Patient seen and examined, vital signs reviewed. Patient is stable at this time, she is concerned about her storage unit, where her belongings are, and is requesting to release money from her belongings in the ED to give to her friend to pay for that, she denies any thoughts of suicide or homicidal ideations at this time. Behavioral health team is attempting placement for this patient today, patient agreeable with plan of care.
[2018-10-10] MEDS: FLUTICASONE/VILANTEROL 100-25 MCG/DOSE IH SCH (10:12)
[2018-10-11] MEDS: PROPRANOLOL HCL 10 MG TABLET PO SCH ×4 (01:04→18:39)
[2018-10-11] MEDS: GABAPENTIN 300 MG CAPSULE PO SCH ×3 (08:48→21:58)
[2018-10-11] MEDS: CETIRIZINE 10 MG TABLET PO SCH (08:48)
[2018-10-11] MEDS: BENZTROPINE MESYLATE 1 MG TABLET PO SCH (08:49)
[2018-10-11] MEDS: CELECOXIB 100 MG CAPSULE PO SCH (08:51)
[2018-10-11] MEDS: CARBAMAZEPINE 200 MG TABLET PO SCH ×3 (08:52→21:58)
[2018-10-11] MEDS: LIDOCAINE 5% (700 MG) TRANSDERMAL ADH..PATCH TP SCH (08:54)
[2018-10-11] MEDS: FLUTICASONE/VILANTEROL 100-25 MCG/DOSE IH SCH (10:30)
--- NOTE | 2018-10-11 11:16 | ER Document Report ---
Doctor's Note Notes: 10/11/18 11:16 Patient seen and examined, vital signs reviewed, patient is stable today, no complaints, we are pending acceptance at a long-term facility in [place] for this patient, she is otherwise doing well while in the emergency department, no changes needed, do not feel any further blood work is needed at this time.
[2018-10-11] MEDS ORDERED: CARBAMAZEPINE 200 MG TABLET ONE (21:49)
[2018-10-12] MEDS: PROPRANOLOL HCL 10 MG TABLET PO SCH ×5 (00:13→23:30)
[2018-10-12] MEDS ORDERED: CELECOXIB 100 MG CAPSULE ONE (05:43)
[2018-10-12] MEDS ORDERED: CARBAMAZEPINE 200 MG TABLET ONE (05:44)
[2018-10-12] MEDS: GABAPENTIN 300 MG CAPSULE PO SCH ×3 (06:44→22:08)
[2018-10-12] MEDS: CELECOXIB 100 MG CAPSULE PO SCH (08:44)
[2018-10-12] MEDS: CARBAMAZEPINE 200 MG TABLET PO SCH ×3 (08:46→22:08)
[2018-10-12] MEDS: LIDOCAINE 5% (700 MG) TRANSDERMAL ADH..PATCH TP SCH (08:47)
[2018-10-12] MEDS: BENZTROPINE MESYLATE 1 MG TABLET PO SCH (08:48)
[2018-10-12] MEDS: CETIRIZINE 10 MG TABLET PO SCH (08:50)
--- NOTE | 2018-10-12 10:55 | ER Document Report ---
Doctor's Note Notes: 10/12/18 10:53 I have evaluated this pt. this am and she has no c/o at this time. She feels all of her needs are being met and her physical exam is normal. She is awaiting disposition per mental health.
[2018-10-12] MEDS: FLUTICASONE/VILANTEROL 100-25 MCG/DOSE IH SCH (11:28)
[2018-10-13] MEDS ORDERED: GABAPENTIN 300 MG CAPSULE ONE (05:35)
[2018-10-13] MEDS: PROPRANOLOL HCL 10 MG TABLET PO SCH ×4 (07:02→23:33)
[2018-10-13] MEDS: GABAPENTIN 300 MG CAPSULE PO SCH ×3 (07:02→22:37)
[2018-10-13] MEDS: CELECOXIB 100 MG CAPSULE PO SCH (08:06)
[2018-10-13] MEDS: BENZTROPINE MESYLATE 1 MG TABLET PO SCH (08:06)
[2018-10-13] MEDS: CARBAMAZEPINE 200 MG TABLET PO SCH ×3 (08:07→22:38)
[2018-10-13] MEDS: CETIRIZINE 10 MG TABLET PO SCH (08:07)
[2018-10-13] MEDS: LIDOCAINE 5% (700 MG) TRANSDERMAL ADH..PATCH TP SCH (09:18)
[2018-10-13] MEDS: FLUTICASONE/VILANTEROL 100-25 MCG/DOSE IH SCH (09:47)
--- NOTE | 2018-10-13 10:20 | ER Document Report ---
Doctor's Note Notes: 10/13/18 10:18 Rounds: Chart reviewed and patient interviewed briefly. Patient is currently very angry and hostile after having consulted by mental health. Patient is now here for 11 days, since October 02. She has been named as a velez of the state and under Adult Protective Services. Patient is awaiting disposition and placement, perhaps in [place], which was the original thought on this patient. Patient appears to be medically stable for transfer or discharge. Marty Pollack MD
[2018-10-14] MEDS: PROPRANOLOL HCL 10 MG TABLET PO SCH ×3 (06:16→17:05)
[2018-10-14] MEDS: GABAPENTIN 300 MG CAPSULE PO SCH ×3 (06:16→21:00)
[2018-10-14] MEDS: BENZTROPINE MESYLATE 1 MG TABLET PO SCH (08:48)
[2018-10-14] MEDS: CELECOXIB 100 MG CAPSULE PO SCH (08:55)
[2018-10-14] MEDS: CETIRIZINE 10 MG TABLET PO SCH (08:55)
[2018-10-14] MEDS: CARBAMAZEPINE 200 MG TABLET PO SCH ×3 (08:56→21:04)
[2018-10-14] MEDS: LIDOCAINE 5% (700 MG) TRANSDERMAL ADH..PATCH TP SCH (08:56)
[2018-10-14] MEDS: FLUTICASONE/VILANTEROL 100-25 MCG/DOSE IH SCH (08:59)
--- NOTE | 2018-10-14 10:28 | ER Document Report ---
Doctor's Note Notes: 10/14/18 10:26 Rounds: Chart reviewed and patient interviewed. Patient is complaining of her joints aching. Says Tylenol does not work. No other complaints at this time. Patient is frustrated that she has not been placed somewhere yet. She was admitted to this emergency department 12 days ago. No new labs to review. Vital signs are all normal. Patient will be prescribed some ibuprofen a couple times a day as needed for her joint pains. Patient appears to be medically stable for transfer or discharge. Marty Pollack MD
[2018-10-14] MEDS: IBUPROFEN 400 MG TABLET PO SCH ×2 (11:22→17:04)
[2018-10-15] MEDS: PROPRANOLOL HCL 10 MG TABLET PO SCH ×5 (01:03→22:28)
[2018-10-15] MEDS: GABAPENTIN 300 MG CAPSULE PO SCH ×3 (06:15→22:27)
[2018-10-15] MEDS: CETIRIZINE 10 MG TABLET PO SCH (07:52)
[2018-10-15] MEDS: BENZTROPINE MESYLATE 1 MG TABLET PO SCH (07:52)
[2018-10-15] MEDS: CARBAMAZEPINE 200 MG TABLET PO SCH ×3 (07:53→22:28)
[2018-10-15] MEDS: LIDOCAINE 5% (700 MG) TRANSDERMAL ADH..PATCH TP SCH (07:53)
[2018-10-15] MEDS: CELECOXIB 100 MG CAPSULE PO SCH (07:56)
[2018-10-15] MEDS: FLUTICASONE/VILANTEROL 100-25 MCG/DOSE IH SCH (09:41)
[2018-10-15] MEDS: IBUPROFEN 400 MG TABLET PO SCH ×2 (09:42→18:05)
--- NOTE | 2018-10-15 18:46 | ER Document Report ---
Doctor's Note Notes: 10/15/18 18:43 Patient has been prescribed Inderal 10 mg every 6 hours, as per the dosing schedule at this hospital he gives her medication at midnight. Patient is quite disgruntled about this. We have consolidated her dosing into 20 mg every 12 hours rather than 10 mg every 6 hours in order to give her a more pleasant m edication experience here to [facility]. Dr. Ibarra and behavioral health team have reviewed the chart and consulted on the patient, they are quite concerned by the patient's ability to stay safe as she is a velez of the state has been declared incompetent and Adult Protective Services does not have a place for the patient to go that is safe on discharge from the hospital. Given her impulsivity and her tendency to do things like have sex for money if she is not in a safe place, Doctor Fred has advised that that we should renew the involuntary commitment paperwork. On her advice I have renewed the involuntary commitment paperwork due to her impulsivity. I have also placed a consult for social work/discharge planning to help find a safe place for this patient to go as she does not have any acute needs here in the emergency department. GENERAL: Alert, interacts well. No acute distress. HEAD: Normocephalic, atraumatic EYES: Pupils equal, round and reactive to light, extraocular movements intact. ENT: Oral mucosa moist, tongue midline. NECK: Full range of motion, supple, trachea midline. LUNGS: no respiratory distress. EXTREMITIES: Moves all 4 extremities spontaneously, no edema. No cyanosis. NEUROLOGICAL: Alert and oriented x3, normal speech. PSYCH: Pressured speech, otherwise normal. SKIN: Warm, Dry, normal turgor, no rashes or lesions noted.
[2018-10-16] MEDS: GABAPENTIN 300 MG CAPSULE PO SCH ×3 (06:26→21:58)
[2018-10-16] MEDS: CELECOXIB 100 MG CAPSULE PO SCH (07:56)
[2018-10-16] MEDS: CARBAMAZEPINE 200 MG TABLET PO SCH ×3 (07:57→21:58)
[2018-10-16] MEDS: CETIRIZINE 10 MG TABLET PO SCH (07:58)
[2018-10-16] MEDS: LIDOCAINE 5% (700 MG) TRANSDERMAL ADH..PATCH TP SCH (07:58)
[2018-10-16] MEDS: BENZTROPINE MESYLATE 1 MG TABLET PO SCH (07:58)
--- NOTE | 2018-10-16 09:39 | ER Document Report ---
Doctor's Note Notes: 10/16/18 09:27 As the rounding physician this AM, I assessed the patient's labs, vitals, and records. No concerning findings this morning. Patient denies any acute complaints. Patient is cleared for disposition by behavioral health team. PHYSICAL EXAMINATION: GENERAL: Well-appearing, well-nourished and in no acute distress. HEAD: Atraumatic, normocephalic. EYES: Pupils equal round extraocular movements intact, conjunctiva are normal. ENT: Nares patent NECK: Normal range of motion LUNGS: No respiratory distress Musculoskeletal: Normal range of motion NEUROLOGICAL: Normal speech, normal gait. PSYCH: Normal mood, normal affect. SKIN: Warm, Dry, normal turgor, no rashes or lesions noted. 10/16/18 18:34
--- NOTE | 2018-10-16 10:04 | PSYCHOLOGICAL NOTE ---
Psych Note - Psych Note Date seen by psych provider: 10/16/18 Time seen by psych provider: 09:20 Psych Note: Patient has been demonstrating a decline in behavior (ie argumentative with staff, irritability, and communicating threats). This is most likely due to the restrictive and high stimulating environment of the emergency department. Overall, the patient has been well behaved compared to previous visits. She has not acted out physically and is re-directable. It is recommended to allow the patient to shut her door to decrease the stimulation. Patient is not a suicidal or homicidal risk. She is unable to care/keep herself safe and is under the [facility] for temporary legal guardianship. [facility] continues to work on getting her permanent placement that is appropriate for the patient's TBIs and behavioral issues.
[2018-10-16 10:20] LABS: ABSOLUTE EOSINOPHILS # (AUTO) 0.3 10^3/uL (0.0-0.6); ABSOLUTE LYMPHOCYTES (AUTO) 1.9 10^3/uL (0.5-4.7); ABSOLUTE MONOCYTES (AUTO) 0.4 10^3/uL (0.1-1.4); ABSOLUTE NEUT (AUTO) 4.6 10^3/uL (1.7-8.2); BASOPHILS % (AUTO) 0.5 % (0-2); EOSINOPHILS % (AUTO) 4.5 % (0-6); HEMATOCRIT 37.6 % (36.0-47.0); HEMOGLOBIN 12.6 g/dL (12.0-15.5); LYMPHOCYTES % (AUTO) 26.1 % (13-45); MEAN CORPUSCULAR HEMOGLOBIN 31.2 pg (27.0-33.4); MEAN CORPUSCULAR HGB CONC 33.5 g/dL (32.0-36.0); MEAN CORPUSCULAR VOLUME 93 fl (80-97); PLATELET COUNT 233 10^3/uL (150-450); RED BLOOD COUNT 4.04 10^6/uL (3.72-5.28); RED CELL DISTRIBUTION WIDTH 13.5 % (11.5-14.0); SEGMENTED NEUTROPHILS % (AUTO) 62.9 % (42-78); TOTAL CELLS COUNTED % (AUTO) 100 %; WHITE BLOOD COUNT 7.3 10^3/uL (4.0-10.5)
[2018-10-16] MEDS: IBUPROFEN 400 MG TABLET PO SCH ×2 (10:40→17:34)
[2018-10-16] MEDS: FLUTICASONE/VILANTEROL 100-25 MCG/DOSE IH SCH (10:40)
[2018-10-16] MEDS: PROPRANOLOL HCL 10 MG TABLET PO SCH ×2 (10:41→21:58)
[2018-10-16] MEDS: ALBUTEROL SULFATE HFA (90 MCG/PUFF) 8 GM MDI (1 MDI/ER DISP) IH PRN (10:43)
[2018-10-16 10:44] LABS: ANION GAP 9 (5-19); BLOOD UREA NITROGEN 20 mg/dL (7-20); CALCIUM 9.2 mg/dL (8.4-10.2); CARBON DIOXIDE 28 mmol/L (22-30); CHLORIDE 98 mmol/L (98-107); POTASSIUM 4.5 mmol/L (3.6-5.0)
[2018-10-16 10:48] LABS: GLUCOSE 68 mg/dL (75-110)
--- NOTE | 2018-10-16 14:55 | EKG REPORT ---
SEVERITY:- NORMAL ECG - SINUS RHYTHM : Confirmed by: Gino Ruvalcaba 16-Oct-2018 14:54:17
[2018-10-17] MEDS: GABAPENTIN 300 MG CAPSULE PO SCH ×3 (06:15→21:45)
[2018-10-17] MEDS: CARBAMAZEPINE 200 MG TABLET PO SCH ×3 (08:08→21:46)
[2018-10-17] MEDS: LIDOCAINE 5% (700 MG) TRANSDERMAL ADH..PATCH TP SCH (08:08)
[2018-10-17] MEDS: CELECOXIB 100 MG CAPSULE PO SCH (08:09)
[2018-10-17] MEDS: CETIRIZINE 10 MG TABLET PO SCH (08:09)
[2018-10-17] MEDS: BENZTROPINE MESYLATE 1 MG TABLET PO SCH (08:09)
[2018-10-17] MEDS ORDERED: KETOROLAC TROMETHAMINE 60 MG/2 ML SDV IM ONE (09:40)
--- NOTE | 2018-10-17 09:41 | ER Document Report ---
Doctor's Note Notes: 10/17/18 09:39 As the rounding physician this AM, I assessed the patient's labs, vitals, and records. No concerning findings this morning. Patient currently complaining of low back pain. She does currently have 2 lidocaine patches on. She is ambulating without difficulty. Patient is requesting a Toradol shot.. Patient is cleared for disposition by psychiatry PHYSICAL EXAMINATION: GENERAL: Well-appearing, well-nourished and in no acute distress. HEAD: Atraumatic, normocephalic. EYES: Pupils equal round extraocular movements intact, conjunctiva are normal. ENT: Nares patent NECK: Normal range of motion LUNGS: No respiratory distress Musculoskeletal: Normal range of motion NEUROLOGICAL: Normal speech, normal gait. PSYCH: Normal mood, normal affect. SKIN: Warm, Dry, normal turgor, no rashes or lesions noted.
[2018-10-17] MEDS: IBUPROFEN 400 MG TABLET PO SCH ×2 (10:37→18:29)
[2018-10-17] MEDS: PROPRANOLOL HCL 10 MG TABLET PO SCH ×2 (10:37→21:45)
[2018-10-17] MEDS: FLUTICASONE/VILANTEROL 100-25 MCG/DOSE IH SCH (10:37)
[2018-10-18] MEDS: GABAPENTIN 300 MG CAPSULE PO SCH ×3 (06:53→21:46)
[2018-10-18] MEDS: LIDOCAINE 5% (700 MG) TRANSDERMAL ADH..PATCH TP SCH (08:26)
[2018-10-18] MEDS: CARBAMAZEPINE 200 MG TABLET PO SCH ×3 (08:27→21:46)
[2018-10-18] MEDS: CELECOXIB 100 MG CAPSULE PO SCH (08:28)
[2018-10-18] MEDS: CETIRIZINE 10 MG TABLET PO SCH (08:29)
[2018-10-18] MEDS: BENZTROPINE MESYLATE 1 MG TABLET PO SCH (08:37)
[2018-10-18] MEDS: IBUPROFEN 400 MG TABLET PO SCH ×2 (10:13→18:41)
[2018-10-18] MEDS: PROPRANOLOL HCL 10 MG TABLET PO SCH ×2 (10:13→21:46)
--- NOTE | 2018-10-18 10:20 | ER Document Report ---
Doctor's Note Notes: 10/18/18 10:18 Rounds: Chart reviewed. Patient interviewed. Patient's only complaint is of back pain for which he received an injection yesterday and wishes to have another one. Vital signs are all normal. No new lab studies to review. Patient is awaiting placement. Has been here for 16 days. Patient appears to be medically stable for transfer or discharge. Marty Pollack MD
[2018-10-18] MEDS: FLUTICASONE/VILANTEROL 100-25 MCG/DOSE IH SCH (10:21)
[2018-10-18] MEDS ORDERED: KETOROLAC TROMETHAMINE 60 MG/2 ML SDV IM ONE (11:01)
--- NOTE | 2018-10-18 15:48 | PSYCHOLOGICAL NOTE ---
Psych Note - Psych Note Date seen by psych provider: 10/18/18 Time seen by psych provider: 15:30 Psych Note: Clinician spoke with APS cutting room supervisor Carmel Marcial. She reports that 2 facilities have submitted to [employer] for authorization. Those facilities are [facility] in [place]. Contact for this facility is lexi Smith at [phone] extension [phone]. Cell phone is [phone]. Clinician contacted and spoke with Marty Smith (Bill)- They have sent information to [employer] ie NPI, Tax number, what abilities facility has. Waiting for [employer] to approve single case or out of network agreement to be able to move forward. He received confirmation [employer] received information and it is being reviewed. Provided contact information for the Behavioral Health Team; he confirms he will contact [facility] with update. He reports that he feels very strongly that the patient would be a good fit for them they just have to receive approval from [employer]. The other facility is [place] in [place] contact is Mary Kay Kearns at [phone] extension [phone]. Cell phone is [phone]. Attempted contact; left message
[2018-10-19] MEDS: GABAPENTIN 300 MG CAPSULE PO SCH ×3 (06:43→21:04)
[2018-10-19] MEDS: LIDOCAINE 5% (700 MG) TRANSDERMAL ADH..PATCH TP SCH (08:26)
[2018-10-19] MEDS: CELECOXIB 100 MG CAPSULE PO SCH (08:29)
[2018-10-19] MEDS: CARBAMAZEPINE 200 MG TABLET PO SCH ×3 (08:29→21:04)
[2018-10-19] MEDS: CETIRIZINE 10 MG TABLET PO SCH (08:30)
[2018-10-19] MEDS: BENZTROPINE MESYLATE 1 MG TABLET PO SCH (08:30)
[2018-10-19] MEDS: IBUPROFEN 400 MG TABLET PO SCH ×2 (09:35→17:14)
[2018-10-19] MEDS: FLUTICASONE/VILANTEROL 100-25 MCG/DOSE IH SCH (09:35)
[2018-10-19] MEDS: PROPRANOLOL HCL 10 MG TABLET PO SCH ×2 (09:38→21:03)
--- NOTE | 2018-10-19 10:20 | ER Document Report ---
Doctor's Note Notes: 10/19/18 10:19 Rounds: Chart reviewed and patient interviewed. No change in condition. Vital signs had a little bit low blood pressure earlier, but his repeat is normal. No new labs to look at. Situation remains the same, awaiting placement somewhere. Patient appears to be medically stable for transfer or discharge. Marty Pollack MD 10/19/18 17:31 Patient is requesting another injection of Toradol for her back pain. This is the third day in a row that she is gotten this medication and I am not sure she needs to have it anymore.
[2018-10-19] MEDS ORDERED: KETOROLAC TROMETHAMINE 60 MG/2 ML SDV IM ONE (17:30)
[2018-10-20] MEDS: GABAPENTIN 300 MG CAPSULE PO SCH ×3 (06:11→23:44)
[2018-10-20] MEDS: BENZTROPINE MESYLATE 1 MG TABLET PO SCH (08:00)
[2018-10-20] MEDS: LIDOCAINE 5% (700 MG) TRANSDERMAL ADH..PATCH TP SCH (09:22)
[2018-10-20] MEDS: PROPRANOLOL HCL 10 MG TABLET PO SCH ×2 (09:23→23:46)
[2018-10-20] MEDS: CARBAMAZEPINE 200 MG TABLET PO SCH ×3 (09:23→23:44)
[2018-10-20] MEDS: CETIRIZINE 10 MG TABLET PO SCH (09:23)
[2018-10-20] MEDS: CELECOXIB 100 MG CAPSULE PO SCH (09:24)
--- NOTE | 2018-10-20 09:49 | ER Document Report ---
Doctor's Note Notes: 10/20/18 09:47 Patient seen and evaluated. She is ambulating around the room without difficulty during my evaluation. She is requesting to be discharged home to live in a friend's house. She will not tell me who the friend is or where exactly the houses. Patient also states that she wants her to come home. She states that he is a "top secret [employer]" and when he returned home they are moving back to [place]. I have been informed that she was awarded custody of the state and is currently awaiting placement at an appropriate facility. Patients only medical complaint is back pain which she has been receiving Lidoderm patches for and Motrin. Patient is medically stable for discharge or transfer.
[2018-10-20] MEDS: IBUPROFEN 400 MG TABLET PO SCH (10:00)
[2018-10-20] MEDS: FLUTICASONE/VILANTEROL 100-25 MCG/DOSE IH SCH (10:00)
[2018-10-21] MEDS: GABAPENTIN 300 MG CAPSULE PO SCH ×3 (07:00→22:23)
[2018-10-21] MEDS: CETIRIZINE 10 MG TABLET PO SCH (08:00)
[2018-10-21] MEDS: LIDOCAINE 5% (700 MG) TRANSDERMAL ADH..PATCH TP SCH (08:00)
[2018-10-21] MEDS: CELECOXIB 100 MG CAPSULE PO SCH (08:00)
[2018-10-21] MEDS: CARBAMAZEPINE 200 MG TABLET PO SCH ×3 (08:00→22:23)
[2018-10-21] MEDS: BENZTROPINE MESYLATE 1 MG TABLET PO SCH (09:52)
[2018-10-21] MEDS: FLUTICASONE/VILANTEROL 100-25 MCG/DOSE IH SCH (09:54)
[2018-10-21] MEDS: PROPRANOLOL HCL 10 MG TABLET PO SCH ×2 (09:57→22:22)
--- NOTE | 2018-10-21 10:16 | ER Document Report ---
Doctor's Note Notes: 10/21/18 10:15 Patient seen and examined. Chart review performed. I was actually brought to the patient's bedside by her yelling and screaming. She slammed the door. She was using abusive language towards staff. In short, she was upset because she did not get a double portion of breakfast. She also believes that staff outside were talking about her mother. She was able to be redirected, calmed herself and sat on the bed. At this time she denies any complaints other than feeling as if she is "in [facility]cc in a morgue." She states she would like to go outside today. She denies any pain, would like to take her medications. Physical exam this is a pleasant 38-year-old female who is mildly agitated but in no acute distress. Head is normocephalic and atraumatic. Heart is regular rate and rhythm, lungs are clear station bilaterally. Skin is warm and dry. In short, this patient is currently a social hold. She has exhibited some agitation, PRN medications will be reviewed. Awaiting DSS/APS assessment for disposition.
[2018-10-21] MEDS: IBUPROFEN 400 MG TABLET PO SCH (19:50)
[2018-10-22] MEDS ORDERED: CYCLOBENZAPRINE HCL 10 MG TABLET PO ONE (01:19)
[2018-10-22] MEDS: GABAPENTIN 300 MG CAPSULE PO SCH ×3 (06:23→22:20)
[2018-10-22] MEDS: IBUPROFEN 400 MG TABLET PO SCH ×3 (08:14→17:27)
[2018-10-22] MEDS: BENZTROPINE MESYLATE 1 MG TABLET PO SCH (08:19)
[2018-10-22] MEDS: CARBAMAZEPINE 200 MG TABLET PO SCH ×3 (08:19→22:21)
[2018-10-22] MEDS: CETIRIZINE 10 MG TABLET PO SCH (08:19)
[2018-10-22] MEDS: CELECOXIB 100 MG CAPSULE PO SCH (08:19)
[2018-10-22] MEDS: LIDOCAINE 5% (700 MG) TRANSDERMAL ADH..PATCH TP SCH (08:19)
[2018-10-22] MEDS: FLUTICASONE/VILANTEROL 100-25 MCG/DOSE IH SCH (10:43)
[2018-10-22] MEDS: PROPRANOLOL HCL 10 MG TABLET PO SCH ×2 (10:43→22:19)
[2018-10-22] MEDS: ALBUTEROL SULFATE HFA (90 MCG/PUFF) 8 GM MDI (1 MDI/ER DISP) IH PRN ×2 (10:58→23:21)
--- NOTE | 2018-10-22 13:30 | ER Document Report ---
Doctor's Note Notes: 10/22/18 13:29 Patient seen and examined. In short she remains mildly agitated intermittently but is redirectable. She was pleased she had a larger portion of breakfast this morning. She would like to talk to "heriberto." She was told that she was under the restriction and became upset. On physical exam this is a pleasant 38-year-old female appears her stated age in no acute distress. Again she becomes agitated but is easily redirectable. She makes good eye contact. Heart is regular rate and rhythm lungs are clear to oscillation bilaterally. I notified by psych that APS continues to work on placement, there are a few facilities they are still hopeful about. This was explained to the patient and she is calm. We will continue to monitor.
[2018-10-23] MEDS ORDERED: SIMETHICONE 80 MG TAB.CHEW ONE (01:09)
[2018-10-23] MEDS ORDERED: SIMETHICONE 80 MG TAB.CHEW PO ONE ×3 (01:18→20:01)
[2018-10-23] MEDS: GABAPENTIN 300 MG CAPSULE PO SCH ×3 (06:18→21:38)
[2018-10-23] MEDS: HYDROXYZINE HCL 10 MG TABLET PO PRN (06:19)
--- NOTE | 2018-10-23 08:24 | ER Document Report ---
Doctor's Note Notes: 10/23/18 08:23 I was asked to come see patient for abdominal pain and rectal pain. On rectal exam she does have multiple hemorrhoids. These are mildly tender to palpation. None of them are thrombosed inflamed or infected. I will prescribe some anesthetic topical for these. On exam with exam she does have some voluntary guarding in the left upper and lower quadrants with some tenderness to palpation. However vital signs are normal. She has been eating normally. And has been ambulating about the emergency department and is taking a shower without problems. I will defer to serial exams at this time and if the abdominal pain persists patient may need imaging.
[2018-10-23] MEDS: CELECOXIB 100 MG CAPSULE PO SCH (08:32)
[2018-10-23] MEDS: BENZTROPINE MESYLATE 1 MG TABLET PO SCH (08:32)
[2018-10-23] MEDS: LIDOCAINE 5% (700 MG) TRANSDERMAL ADH..PATCH TP SCH (08:32)
[2018-10-23] MEDS: CETIRIZINE 10 MG TABLET PO SCH (08:32)
[2018-10-23] MEDS: CARBAMAZEPINE 200 MG TABLET PO SCH ×3 (08:32→21:38)
[2018-10-23] MEDS ORDERED: HYDROCORTISONE ACETATE 25 MG SUPP.RECT PR ONE ×2 (09:10→21:12)
[2018-10-23] MEDS: IBUPROFEN 400 MG TABLET PO SCH ×2 (09:20→18:52)
[2018-10-23] MEDS: PROPRANOLOL HCL 10 MG TABLET PO SCH ×2 (09:20→22:13)
[2018-10-23] MEDS: FLUTICASONE/VILANTEROL 100-25 MCG/DOSE IH SCH (09:20)
--- NOTE | 2018-10-23 10:16 | ER Document Report ---
Doctor's Note Notes: 10/23/18 10:14 Rounds: Patient is now been in this emergency department for 3 weeks. Awaiting placement. Condition of traumatic brain injury and secondary effects. Patient is currently wearing 2 lidocaine patches for pains in her neck and shoulder. She has been receiving injections of Toradol and oral Motrin for back pains. Complaining today of left sided abdominal pain and hemorrhoids. Patient was examined by other provider who prescribed Anusol for the hemorrhoids. Patient requested something for stool softener and some Tucks to use as needed. Will order some stool softener. No labs to review. Vital signs are all normal. Patient appears to be medically stable for transfer or discharge. Marty Pollack MD
[2018-10-23] MEDS ORDERED: GLYCERIN/WITCH HAZEL LEAF 1 EACH MED..WIPE TP ONE (12:59)
[2018-10-23] MEDS: CHLORPROMAZINE HCL 50 MG TABLET PO PRN (20:06)
[2018-10-24] MEDS: ALBUTEROL SULFATE HFA (90 MCG/PUFF) 8 GM MDI (1 MDI/ER DISP) IH PRN ×2 (07:06→22:18)
[2018-10-24] MEDS: GABAPENTIN 300 MG CAPSULE PO SCH ×3 (07:38→22:14)
[2018-10-24] MEDS: CARBAMAZEPINE 200 MG TABLET PO SCH ×3 (08:04→22:12)
[2018-10-24] MEDS: CELECOXIB 100 MG CAPSULE PO SCH (08:05)
[2018-10-24] MEDS: LIDOCAINE 5% (700 MG) TRANSDERMAL ADH..PATCH TP SCH (08:05)
[2018-10-24] MEDS: CETIRIZINE 10 MG TABLET PO SCH (08:05)
[2018-10-24] MEDS: HYDROXYZINE HCL 10 MG TABLET PO PRN (08:47)
--- NOTE | 2018-10-24 10:09 | ER Document Report ---
Doctor's Note Notes: 10/24/18 10:09 Rounds: Chart reviewed and patient interviewed. Patient is complaining of abdominal gas as well as her hemorrhoids this morning. Once reading material on Atarax. Patient appears to be the same. Vital signs are all normal. Abdomen is soft and nontender. Patient appears to be medically stable for transfer or discharge. Patient has been prescribed Colace 100 mg twice a day for constipation and is also had her order for hemorrhoids treatment with Anusol suppositories twice a day as needed in the future. Marty Pollack MD
[2018-10-24] MEDS: BENZTROPINE MESYLATE 1 MG TABLET PO SCH (10:10)
[2018-10-24] MEDS: IBUPROFEN 400 MG TABLET PO SCH ×2 (10:48→17:57)
[2018-10-24] MEDS: FLUTICASONE/VILANTEROL 100-25 MCG/DOSE IH SCH (10:48)
[2018-10-24] MEDS: PROPRANOLOL HCL 10 MG TABLET PO SCH ×2 (10:49→22:14)
[2018-10-24] MEDS: HYDROCORTISONE ACETATE 25 MG SUPP.RECT PR PRN ×2 (10:49→18:28)
[2018-10-24] MEDS: DOCUSATE SODIUM 100 MG CAPSULE PO PRN ×2 (10:51→18:28)
[2018-10-24] MEDS: SIMETHICONE 80 MG TAB.CHEW PO PRN (19:04)
[2018-10-25] MEDS: ALBUTEROL SULFATE HFA (90 MCG/PUFF) 8 GM MDI (1 MDI/ER DISP) IH PRN ×2 (04:57→13:41)
[2018-10-25] MEDS ORDERED: CHLORPROMAZINE HCL INJ 25 MG/1 ML AMPULE IM ONE (05:37)
--- NOTE | 2018-10-25 10:09 | ER Document Report ---
Doctor's Note Notes: 10/25/18 10:08 Patient has been with us an extended period of time. Awaiting placement. Vital signs are stable. No complaints.
[2018-10-25] MEDS: PROPRANOLOL HCL 10 MG TABLET PO SCH ×2 (13:33→22:29)
[2018-10-25] MEDS: GABAPENTIN 300 MG CAPSULE PO SCH ×3 (13:33→22:28)
[2018-10-25] MEDS: CELECOXIB 100 MG CAPSULE PO SCH (13:33)
[2018-10-25] MEDS: CARBAMAZEPINE 200 MG TABLET PO SCH ×3 (13:34→22:27)
[2018-10-25] MEDS: IBUPROFEN 400 MG TABLET PO SCH ×2 (13:34→17:36)
[2018-10-25] MEDS: BENZTROPINE MESYLATE 1 MG TABLET PO SCH (13:36)
[2018-10-25] MEDS: LIDOCAINE 5% (700 MG) TRANSDERMAL ADH..PATCH TP SCH (13:36)
[2018-10-25] MEDS: CETIRIZINE 10 MG TABLET PO SCH (13:36)
[2018-10-25] MEDS: FLUTICASONE/VILANTEROL 100-25 MCG/DOSE IH SCH (13:39)
[2018-10-25] MEDS: DOCUSATE SODIUM 100 MG CAPSULE PO PRN (13:47)
[2018-10-25] MEDS: HYDROCORTISONE ACETATE 25 MG SUPP.RECT PR PRN (13:47)
[2018-10-25] MEDS ORDERED: PROMETHAZINE HCL INJ 25 MG/1 ML VIAL IV ONE (18:38)
[2018-10-26] MEDS: GABAPENTIN 300 MG CAPSULE PO SCH ×3 (06:08→22:43)
[2018-10-26] MEDS: HYDROXYZINE HCL 10 MG TABLET PO PRN (06:51)
[2018-10-26] MEDS: CHLORPROMAZINE HCL 50 MG TABLET PO PRN (06:52)
[2018-10-26] MEDS: CETIRIZINE 10 MG TABLET PO SCH (08:55)
[2018-10-26] MEDS: CARBAMAZEPINE 200 MG TABLET PO SCH ×3 (08:55→22:44)
[2018-10-26] MEDS: CELECOXIB 100 MG CAPSULE PO SCH (08:55)
[2018-10-26] MEDS: LIDOCAINE 5% (700 MG) TRANSDERMAL ADH..PATCH TP SCH (08:57)
--- NOTE | 2018-10-26 09:17 | ER Document Report ---
Doctor's Note Notes: 10/26/18 09:17 Vital signs stable. No acute distress. Awaiting social work/psychology placement.
[2018-10-26] MEDS: DOCUSATE SODIUM 100 MG CAPSULE PO PRN (10:20)
[2018-10-26] MEDS: IBUPROFEN 400 MG TABLET PO SCH ×2 (10:20→18:22)
[2018-10-26] MEDS: HYDROCORTISONE ACETATE 25 MG SUPP.RECT PR PRN (10:20)
[2018-10-26] MEDS: PROPRANOLOL HCL 10 MG TABLET PO SCH ×2 (10:20→22:45)
[2018-10-26] MEDS: BENZTROPINE MESYLATE 1 MG TABLET PO SCH (10:20)
[2018-10-26] MEDS: FLUTICASONE/VILANTEROL 100-25 MCG/DOSE IH SCH (10:21)
[2018-10-26] MEDS ORDERED: GLYCERIN/WITCH HAZEL LEAF 1 EACH MED..WIPE TP ONE (15:08)
[2018-10-26] MEDS ORDERED: PROMETHAZINE HCL 25 MG TABLET PO ONE (18:07)
--- NOTE | 2018-10-26 19:12 | EKG REPORT ---
SEVERITY:- OTHERWISE NORMAL ECG - SINUS TACHYCARDIA : Confirmed by: Anabel Burks MD 26-Oct-2018 19:11:23
[2018-10-26] MEDS: ALBUTEROL SULFATE HFA (90 MCG/PUFF) 8 GM MDI (1 MDI/ER DISP) IH PRN (21:05)
[2018-10-26] MEDS: SIMETHICONE 80 MG TAB.CHEW PO PRN (22:49)
[2018-10-27] MEDS: GABAPENTIN 300 MG CAPSULE PO SCH ×3 (06:53→21:28)
[2018-10-27] MEDS ORDERED: DIPHENHYDRAMINE HCL 50 MG/ML VIAL IM ONE (07:45)
[2018-10-27] MEDS: CETIRIZINE 10 MG TABLET PO SCH (08:09)
[2018-10-27] MEDS: BENZTROPINE MESYLATE 1 MG TABLET PO SCH (08:09)
[2018-10-27] MEDS: CARBAMAZEPINE 200 MG TABLET PO SCH ×3 (08:10→21:32)
[2018-10-27] MEDS: LIDOCAINE 5% (700 MG) TRANSDERMAL ADH..PATCH TP SCH (08:10)
[2018-10-27] MEDS: CELECOXIB 100 MG CAPSULE PO SCH (08:46)
[2018-10-27] MEDS: PROPRANOLOL HCL 10 MG TABLET PO SCH ×2 (10:08→21:27)
[2018-10-27] MEDS: IBUPROFEN 400 MG TABLET PO SCH ×2 (10:09→17:54)
[2018-10-27] MEDS: FLUTICASONE/VILANTEROL 100-25 MCG/DOSE IH SCH (10:14)
[2018-10-27] MEDS ORDERED: PROCHLORPERAZINE MALEATE 10 MG TABLET PO ONE (11:22)
--- NOTE | 2018-10-27 16:40 | ER Document Report ---
Doctor's Note Notes: 10/27/18 16:40 As the rounding physician for our psychiatric patients, I have reviewed the chart, vitals, lab work. Patient has been examined and noted to be . I am awaiting mental health input.
[2018-10-27] MEDS ORDERED: DIPHENHYDRAMINE HCL 25 MG CAPSULE PO ONE (17:07)
[2018-10-27] MEDS ORDERED: PROMETHAZINE HCL 25 MG TABLET PO ONE (17:41)
[2018-10-27] MEDS: HYDROXYZINE HCL 10 MG TABLET PO PRN (19:59)
[2018-10-28] MEDS: GABAPENTIN 300 MG CAPSULE PO SCH ×3 (05:48→23:18)
[2018-10-28] MEDS: LIDOCAINE 5% (700 MG) TRANSDERMAL ADH..PATCH TP SCH (08:15)
[2018-10-28] MEDS: CARBAMAZEPINE 200 MG TABLET PO SCH ×3 (08:58→23:19)
[2018-10-28] MEDS: CETIRIZINE 10 MG TABLET PO SCH (08:58)
[2018-10-28] MEDS: BENZTROPINE MESYLATE 1 MG TABLET PO SCH (09:05)
[2018-10-28] MEDS: CELECOXIB 100 MG CAPSULE PO SCH (09:06)
--- NOTE | 2018-10-28 09:14 | ER Document Report ---
Doctor's Note Notes: 10/28/18 09:13 As the rounding physician for our psychiatric patients, I have reviewed the chart, vitals, lab work. Patient has been examined and noted to be . I am awaiting mental health input.
[2018-10-28] MEDS ORDERED: PROMETHAZINE HCL 25 MG TABLET PO ONE (10:11)
[2018-10-28] MEDS: PROPRANOLOL HCL 10 MG TABLET PO SCH ×2 (10:53→23:19)
[2018-10-28] MEDS: FLUTICASONE/VILANTEROL 100-25 MCG/DOSE IH SCH (10:54)
[2018-10-28] MEDS: IBUPROFEN 400 MG TABLET PO SCH ×2 (10:58→19:01)
--- NOTE | 2018-10-28 15:14 | PSYCHOLOGICAL NOTE ---
Psych Note - Psych Note Date seen by psych provider: 10/28/18 Time seen by psych provider: 08:24 - Observed patient sleeping on video monitor. At 1300 patient had behavior. 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 She has an interview for residential placement (10/31/18) at 0900. At 0824 patient was still in her room, in bed, under covers. Observed her come to her door a couple times and even out at the nurses station once. At 1300 this clinician was at nurses station speaking with nurse about a different patient, this patient was in her doorway with door more than cracked but not all way open speaking with a nurse, she then screamed and yelled at this clinician. She was loud and used curse words. Ultimately she blames this clinician for her visitor and phone restrictions. Patient Associate Professor Physician reported patient had just been served lunch, it had corn in her mixed vegetables so she threw the entire food tray. It seems this had patient upset already due to lunch which is why the nurse was talking with her at her door. The other [facility] Behavioral Health Clinician came to evaluate patient since patient has fixated that this clinician is reason for her restrictions. Diagnosis: (obtained from 02/22/18 ED visit and behavioral health consult) History of TBI per history provided by patient's psychiatry staff during previous inpatient at [facility] Cocaine use disorder per history provided by patient's psychiatry staff during previous inpatient at [facility] Cannabis use disorder, severe provided by patient psychiatry staff during previous inpatient at [facility] Somatic Delusion Disorder; with bizarre content provided by patient psychiatry staff during previous inpatient at [facility] Cluster B personality characteristics noted during current [facility] visit and provided by patient psychiatry staff during previous inpatient at [facility] Impression/Plan: Recommendation to maintain IVC (need to reinstate). Patient continued to present impulsive (yell, scream, curse, throw food tray) and not be able to control behaviors/emotions. She has Hx of multiple TBIs and has been deemed incompetent. DSS/APS are legal Guardians and seeking residential TBI placement. Consulted with Dr. Ibarra regarding the management and care of patient. ED Physician in agreement with recommendations.
[2018-10-28] MEDS ORDERED: PROMETHAZINE HCL INJ 25 MG/1 ML VIAL IV ONE (18:33)
[2018-10-28] MEDS ORDERED: LORAZEPAM INJ 2 MG/1 ML VIAL IV ONE (18:33)
[2018-10-28] MEDS ORDERED: ONDANSETRON HCL INJ/PF 4 MG/2 ML SDV IV ONE (18:33)
[2018-10-28] MEDS: HYDROCORTISONE ACETATE 25 MG SUPP.RECT PR PRN (23:18)
[2018-10-28] MEDS: DOCUSATE SODIUM 100 MG CAPSULE PO PRN (23:18)
[2018-10-29] MEDS ORDERED: ONDANSETRON HCL INJ/PF 4 MG/2 ML SDV IV ONE (05:35)
[2018-10-29] MEDS ORDERED: ONDANSETRON 4 MG TAB.RAPDIS PO ONE ×2 (06:27→10:46)
[2018-10-29] MEDS: GABAPENTIN 300 MG CAPSULE PO SCH ×3 (06:33→22:18)
[2018-10-29] MEDS: LIDOCAINE 5% (700 MG) TRANSDERMAL ADH..PATCH TP SCH (08:00)
[2018-10-29] MEDS: CELECOXIB 100 MG CAPSULE PO SCH (08:00)
[2018-10-29] MEDS: CETIRIZINE 10 MG TABLET PO SCH (08:00)
[2018-10-29] MEDS: CARBAMAZEPINE 200 MG TABLET PO SCH ×3 (08:07→22:17)
[2018-10-29] MEDS: DOCUSATE SODIUM 100 MG CAPSULE PO PRN (09:06)
[2018-10-29] MEDS: PROPRANOLOL HCL 10 MG TABLET PO SCH ×2 (09:07→22:18)
[2018-10-29] MEDS: SIMETHICONE 80 MG TAB.CHEW PO PRN (09:08)
[2018-10-29] MEDS: IBUPROFEN 400 MG TABLET PO SCH ×2 (09:08→17:29)
[2018-10-29] MEDS: HYDROCORTISONE ACETATE 25 MG SUPP.RECT PR PRN (09:09)
[2018-10-29] MEDS: FLUTICASONE/VILANTEROL 100-25 MCG/DOSE IH SCH (09:11)
[2018-10-29] MEDS: BENZTROPINE MESYLATE 1 MG TABLET PO SCH (09:11)
--- NOTE | 2018-10-29 10:48 | ER Document Report ---
Doctor's Note Notes: 10/29/18 10:43 Rounds: Patient is complaining of some headache today. No change in her condition. Vital signs are all normal. Patient has been in this facility since October 02. No apparent disposition in the future yet. Patient appears to be medically stable for transfer or discharge. Patient became very upset when I d eclined to review 2 pages of complaints that she has highlighted and pink. I told her we would talk about them later but she was not happy without response. Began yelling and uncooperative. Marty Pollack MD
[2018-10-29] MEDS ORDERED: PROMETHAZINE HCL 25 MG TABLET PO ONE (11:22)
[2018-10-30] MEDS: GABAPENTIN 300 MG CAPSULE PO SCH ×3 (05:49→22:14)
[2018-10-30] MEDS: HYDROCORTISONE ACETATE 25 MG SUPP.RECT PR PRN (09:24)
[2018-10-30] MEDS: LIDOCAINE 5% (700 MG) TRANSDERMAL ADH..PATCH TP SCH (09:25)
[2018-10-30] MEDS: CETIRIZINE 10 MG TABLET PO SCH (09:30)
[2018-10-30] MEDS: CARBAMAZEPINE 200 MG TABLET PO SCH ×3 (09:30→22:20)
[2018-10-30] MEDS: BENZTROPINE MESYLATE 1 MG TABLET PO SCH (09:31)
[2018-10-30] MEDS: CELECOXIB 100 MG CAPSULE PO SCH (09:31)
[2018-10-30] MEDS: IBUPROFEN 400 MG TABLET PO SCH ×2 (09:34→18:15)
[2018-10-30] MEDS: FLUTICASONE/VILANTEROL 100-25 MCG/DOSE IH SCH (09:34)
[2018-10-30] MEDS: SIMETHICONE 80 MG TAB.CHEW PO PRN (09:35)
[2018-10-30] MEDS: DOCUSATE SODIUM 100 MG CAPSULE PO PRN (09:35)
[2018-10-30] MEDS: PROPRANOLOL HCL 10 MG TABLET PO SCH ×2 (09:35→22:13)
--- NOTE | 2018-10-30 10:42 | ER Document Report ---
Doctor's Note Notes: 10/30/18 10:41 Rounds: Patient does not wish to talk to me this morning. Vital signs are normal. No new labs to review. Patient remains stable for transfer or discharge. Marty Pollack MD
[2018-10-31] MEDS: GABAPENTIN 300 MG CAPSULE PO SCH ×3 (05:54→22:27)
[2018-10-31] MEDS: CARBAMAZEPINE 200 MG TABLET PO SCH ×3 (08:32→22:28)
[2018-10-31] MEDS: BENZTROPINE MESYLATE 1 MG TABLET PO SCH ×2 (08:32→08:55)
[2018-10-31] MEDS: CETIRIZINE 10 MG TABLET PO SCH (08:32)
[2018-10-31] MEDS: LIDOCAINE 5% (700 MG) TRANSDERMAL ADH..PATCH TP SCH (08:33)
[2018-10-31] MEDS: CELECOXIB 100 MG CAPSULE PO SCH (08:37)
[2018-10-31] MEDS: PROPRANOLOL HCL 10 MG TABLET PO SCH ×2 (10:27→22:27)
[2018-10-31] MEDS: FLUTICASONE/VILANTEROL 100-25 MCG/DOSE IH SCH (10:27)
[2018-10-31] MEDS: IBUPROFEN 400 MG TABLET PO SCH ×2 (10:27→17:34)
[2018-10-31] MEDS: DOCUSATE SODIUM 100 MG CAPSULE PO PRN (10:28)
[2018-10-31] MEDS: HYDROCORTISONE ACETATE 25 MG SUPP.RECT PR PRN (10:32)
[2018-10-31] MEDS: SIMETHICONE 80 MG TAB.CHEW PO PRN (10:32)
[2018-10-31] MEDS: ALBUTEROL SULFATE HFA (90 MCG/PUFF) 8 GM MDI (1 MDI/ER DISP) IH PRN (11:17)
--- NOTE | 2018-10-31 11:35 | ER Document Report ---
Doctor's Note Notes: 10/31/18 11:35 Chart reviewed. Patient again does not wish to speak with me. Vital signs are all normal. Patient looks to be stable. Marty Pollack MD
[2018-11-01] MEDS: GABAPENTIN 300 MG CAPSULE PO SCH ×3 (05:38→23:48)
[2018-11-01] MEDS: CETIRIZINE 10 MG TABLET PO SCH (08:22)
[2018-11-01] MEDS: LIDOCAINE 5% (700 MG) TRANSDERMAL ADH..PATCH TP SCH (08:22)
[2018-11-01] MEDS: CARBAMAZEPINE 200 MG TABLET PO SCH ×3 (08:22→23:47)
[2018-11-01] MEDS: BENZTROPINE MESYLATE 1 MG TABLET PO SCH (08:23)
[2018-11-01] MEDS: ALBUTEROL SULFATE HFA (90 MCG/PUFF) 8 GM MDI (1 MDI/ER DISP) IH PRN (08:26)
[2018-11-01] MEDS: CELECOXIB 100 MG CAPSULE PO SCH (08:27)
[2018-11-01] MEDS: HYDROCORTISONE ACETATE 25 MG SUPP.RECT PR PRN (08:29)
[2018-11-01] MEDS: DOCUSATE SODIUM 100 MG CAPSULE PO PRN (08:29)
--- NOTE | 2018-11-01 09:51 | ER Document Report ---
Doctor's Note Notes: 11/01/18 09:51 Awaiting social work/psychiatry disposition. The [place] team was here yesterday to evaluate for possible placement as well. Vital signs are stable.
[2018-11-01] MEDS: IBUPROFEN 400 MG TABLET PO SCH ×2 (10:07→18:13)
[2018-11-01] MEDS: FLUTICASONE/VILANTEROL 100-25 MCG/DOSE IH SCH (10:08)
[2018-11-01] MEDS: PROPRANOLOL HCL 10 MG TABLET PO SCH ×2 (10:08→23:48)
--- NOTE | 2018-11-01 12:06 | PSYCHOLOGICAL NOTE ---
Psych Note - Psych Note Date seen by psych provider: 10/29/18 Time seen by psych provider: 08:12 - Chart review at 0812. 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 She has an interview for residential placement (10/31/18) at 0900. She showered this morning and no outbursts thus far. Attending nurse noted patient has consitpation. Overnight documentation noted patient had an incident at dinner time yesterday when there was Dasani water instead of Aquafina. She reportedly started yelling, crying, threatened another patient, was loud/verbally aggressive. The other [facility] Behavioral Health Clinician came to evaluate patient since patient has fixated that this clinician is reason for her restrictions. Diagnosis: (obtained from 02/22/18 ED visit and behavioral health consult) History of TBI per history provided by patient's psychiatry staff during previous inpatient at [facility] Cocaine use disorder per history provided by patient's psychiatry staff during previous inpatient at [facility] Cannabis use disorder, severe provided by patient psychiatry staff during previous inpatient at [facility] Somatic Delusion Disorder; with bizarre content provided by patient psychiatry staff during previous inpatient at [facility] Cluster B personality characteristics noted during current [facility] visit and provided by patient psychiatry staff during previous inpatient at [facility] Impression/Plan: Recommendation to maintain IVC (need to reinstate). Patient continued to present with waxing and waning in being impulsive and ability to control behaviors/emotions. She has Hx of multiple TBIs and has been deemed incompetent. DSS/APS are legal Guardians and seeking residential TBI placement. Consulted with Dr. Ibarra regarding the management and care of patient. ED Physician in agreement with recommendations.
--- NOTE | 2018-11-01 12:08 | PSYCHOLOGICAL NOTE ---
Psych Note - Psych Note Date seen by psych provider: 10/30/18 Time seen by psych provider: 08:21 - Chart review at 0821. 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 She has an interview for residential placement (10/31/18) at 0900. Overnight documentation noted patient was cooperative, required minimal redirection and had no outbursts in behavior. She continued with this presentation throughout the day. The other [facility] Behavioral Health Clinician came to evaluate patient since patient has fixated that this clinician is reason for her restrictions. Diagnosis: (obtained from 02/22/18 ED visit and behavioral health consult) History of TBI per history provided by patient's psychiatry staff during p revious inpatient at [facility] Cocaine use disorder per history provided by patient's psychiatry staff during previous inpatient at [facility] Cannabis use disorder, severe provided by patient psychiatry staff during previous inpatient at [facility] Somatic Delusion Disorder; with bizarre content provided by patient psychiatry staff during previous inpatient at [facility] Cluster B personality characteristics noted during current [facility] visit and provided by patient psychiatry staff during previous inpatient at [facility] Impression/Plan: Recommendation to maintain IVC (need to reinstate). Patient continued to present with waxing and waning in being impulsive and ability to control behaviors/emotions. She has Hx of multiple TBIs and has been deemed incompetent. DSS/APS are legal Guardians and seeking residential TBI placement. Consulted with Dr. Ibarra regarding the management and care of patient. ED Physician in agreement with recommendations.
[2018-11-02] MEDS: GABAPENTIN 300 MG CAPSULE PO SCH ×5 (09:21→22:14)
[2018-11-02] MEDS: BENZTROPINE MESYLATE 1 MG TABLET PO SCH (09:23)
[2018-11-02] MEDS: PROPRANOLOL HCL 10 MG TABLET PO SCH ×2 (09:23→22:14)
[2018-11-02] MEDS: LIDOCAINE 5% (700 MG) TRANSDERMAL ADH..PATCH TP SCH (09:23)
[2018-11-02] MEDS: FLUTICASONE/VILANTEROL 100-25 MCG/DOSE IH SCH (09:24)
[2018-11-02] MEDS: CARBAMAZEPINE 200 MG TABLET PO SCH ×3 (09:24→22:14)
[2018-11-02] MEDS: IBUPROFEN 400 MG TABLET PO SCH ×2 (09:24→17:56)
--- NOTE | 2018-11-02 09:49 | ER Document Report ---
Doctor's Note Notes: 11/02/18 09:48 Patient seen and examined. She is concerned because some of her as needed medications were not reordered. She states she is feeling nauseated and nearly vomited. Otherwise she is been doing well. Eating and drinking. Has no acute complaints or concerns, other than the fact that she cannot receive phone calls. She is looking forward to going outside today. Chart reviewed. Vital signs reviewed. Patient is a 38-year-old female who appears her stated age in no acute distress. She is mildly agitated, but this seems to be her baseline. Pupils are equal round, reactive to light. Heart is regular rate and rhythm, lungs are clear to station bilaterally. Skin is warm and dry. Still awaiting placement from APS. Patient's medications including Neurontin, Phenergan, Zyrtec reordered. We will continue to monitor.
[2018-11-02] MEDS: PROMETHAZINE HCL 25 MG TABLET PO PRN (09:54)
[2018-11-02] MEDS: HYDROCORTISONE ACETATE 25 MG SUPP.RECT PR PRN (09:54)
[2018-11-02] MEDS: DOCUSATE SODIUM 100 MG CAPSULE PO PRN (09:54)
[2018-11-02] MEDS: CETIRIZINE 10 MG TABLET PO SCH (09:54)
[2018-11-02] MEDS: SIMETHICONE 80 MG TAB.CHEW PO PRN (11:23)
--- NOTE | 2018-11-02 21:13 | PSYCHOLOGICAL NOTE ---
Psych Note - Psych Note Date seen by psych provider: 10/06/18 Time seen by psych provider: 08:15 - Chart review at 0815. Evaluation from 0850- [id number]. Psych Note: Presenting Problem: Initially 24 Hour IVC Petition (10/02/18) due to behavioral outburst while in court Sunday (10/04/18) for competency hearing. She has a Hx of TBI. She had been deemed incompetent and [facility] DSS/APS is legal guardian. 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 in my life." Diagnosis: (obtained from 02/22/18 ED visit and behavioral health consult) History of TBI per history provided by patient's psychiatry staff during previous inpatient at [facility] Cocaine use disorder per history provided by patient's psychiatry staff during previous inpatient at [facility] Cannabis use disorder, severe provided by patient psychiatry staff during previous inpatient at [facility] Somatic Delusion Disorder; with bizarre content provided by patient psychiatry staff during previous inpatient at [facility] Cluster B personality characteristics noted during current [facility] visit and provided by patient psychiatry staff during previous inpatient at [facility] Impression/Plan: Recommendation to maintain IVC patient. Ultimately patient is a velez of the state now and DSS/APS beig legal guardian is seeking specialized TBI residential treatment. Patient has continued to wax and wane in her ability to manage behaviors and emotions. Consulted with Dr. Ibarra regarding the management and care of patient. ED Physician in agreement with recommendations.
--- NOTE | 2018-11-02 21:21 | PSYCHOLOGICAL NOTE ---
Psych Note - Psych Note Date seen by psych provider: 10/07/18 Time seen by psych provider: 09:26 - Person identified as mother collateral from [id number]. Psych Note: Presenting Problem: Initially 24 Hour IVC Petition (10/02/18) due to behavioral outburst while in court Sunday (10/04/18) for competency hearing. She has a Hx of TBI. She had been deemed incompetent and [facility] DSS/APS is legal guardian. Today called Ada Muñoz the person patient identified as mother/not biological/but raised her. She confirmed she was in [place] and would be [place] Sunday. She noted she had been helping patient with the storage unit and said patient called her asking her to bring everything in the storage unit to the hospital. Mother was informed not to do that. She stated there is a gentleman from [place] who calls patient, the conversations are [facility] and she thinks he is scamming patient. Mother stated patient was in one of her Detox Facilities in [place] for dual diagnosis SA/MH, like a senior living house previously. She reported she no longer runs thesebut had reached out to people she still has connections with and provided the following information: Amanda Rec in [facility] at [address] [facility], a third level care facility, is 25/09 number. Diagnosis: (obtained from 02/22/18 ED visit and behavioral health consult) History of TBI per history provided by patient's psychiatry staff during previous inpatient at [facility] Cocaine use disorder per history provided by patient's psychiatry staff during previous inpatient at [facility] Cannabis use disorder, severe provided by patient psychiatry staff during previous inpatient at [facility] Somatic Delusion Disorder; with bizarre content provided by patient psychiatry staff during previous inpatient at [facility] Cluster B personality characteristics noted during current [facility] visit and provided by patient psychiatry staff during previous inpatient at [facility] Impression/Plan: Recommendation to maintain IVC patient. Ultimately patient is a velez of the state now and DSS/APS being legal guardian is seeking specialized TBI residential treatment. Patient has continued to wax and wane in her ability to manage behaviors and emotions. Consulted with Dr. Ibarra regarding the management and care of patient. ED Physician in agreement with recommendations.
--- NOTE | 2018-11-02 21:31 | PSYCHOLOGICAL NOTE ---
Psych Note - Psych Note Date seen by psych provider: 10/09/18 Time seen by psych provider: 08:02 - Chart review at 0802. Observation and brief interaction at 0853. DSS/APS brief visit with [facility] team only from [id number]. Psych Note: Presenting Problem: Initially 24 Hour IVC Petition (10/02/18) due to behavioral outburst while in court Sunday (10/04/18) for competency hearing. She has a Hx of TBI. She had been deemed incompetent and [facility] DSS/APS is legal guardian. Chart review revealed patient woke up at 0558, went to nurses station crying, said she had a nightmare, thinks there was a monster in her room, she then colored, but shortly after displayed paranoia when she stated she thought someone was going to break into her locker to steal her things, but was otherwise cooperative. Observed her in her room coloring, this clinician said good morning, and he said it back. DSS/APS worker Amarilis Ruddcitlali visited the [facility] team for paperwork. She noted they are seeking residential placement at a couple facilities in [place], the issue is out of state Medicaid, 1 place denied and the other is reviewing. She was made aware of contact with Ada Muñoz yesterday and information she had on a facility that did not seem TBI specialized. Emailed DSS/APS worker the information on the facility. Diagnosis: (obtained from 02/22/18 ED visit and behavioral health consult) History of TBI per history provided by patient's psychiatry staff during previous inpatient at [facility] Cocaine use disorder per history provided by patient's psychiatry staff during previous inpatient at [facility] Cannabis use disorder, severe provided by patient psychiatry staff during previous inpatient at [facility] Somatic Delusion Disorder; with bizarre content provided by patient psychiatry staff during previous inpatient at [facility] Cluster B personality characteristics noted during current [facility] visit and provided by patient psychiatry staff during previous inpatient at [facility] Impression/Plan: Recommendation to maintain IVC patient. Ultimately patient is a velez of the state now and DSS/APS being legal guardian is seeking specialized TBI residential treatment. Patient has continued to wax and wane in her ability to manage behaviors and emotions. Consulted with Dr. Ibarra regarding the management and care of patient. ED Physician in agreement with recommendations.
--- NOTE | 2018-11-02 21:38 | PSYCHOLOGICAL NOTE ---
Psych Note - Psych Note Date seen by psych provider: 10/13/18 Time seen by psych provider: 09:53 - Check in/observation from [id number]. Psych Note: Presenting Problem: Initially 24 Hour IVC Petition (10/02/18) due to behavioral outburst while in court Sunday (10/04/18) for competency hearing. She has a Hx of TBI. She had been deemed incompetent and [facility] DSS/APS is legal guardian. Chart review and pass off report from previous clinician noted patient was started on Environmental Therapy twice a day of available yesterday. Diagnosis: (obtained from 02/22/18 ED visit and behavioral health consult) History of TBI per history provided by patient's psychiatry staff during previous inpatient at [facility] Cocaine use disorder per history provided by patient's psychiatry staff during previous inpatient at [facility] Cannabis use disorder, severe provided by patient psychiatry staff during previous inpatient at [facility] Somatic Delusion Disorder; with bizarre content provided by patient psychiatry staff during previous inpatient at [facility] Cluster B personality characteristics noted during current [facility] visit and provided by patient psychiatry staff during previous inpatient at [facility] Impression/Plan: Recommendation to maintain IVC patient. Ultimately patient is a velez of the state now and DSS/APS being legal guardian is seeking specialized TBI residential treatment. Patient has continued to wax and wane in her ability to manage behaviors and emotions. Consulted with Dr. Iabrra regarding the management and care of patient. ED Physician in agreement with recommendations.
--- NOTE | 2018-11-02 21:41 | PSYCHOLOGICAL NOTE ---
Psych Note - Psych Note Date seen by psych provider: 10/14/18 Time seen by psych provider: 10:00 Psych Note: Presenting Problem: Initially 24 Hour IVC Petition (10/02/18) due to behavioral outburst while in court Sunday (10/04/18) for competency hearing. She has a Hx of TBI. She had been deemed incompetent and [facility] DSS/APS is legal guardian. Still a fluctuation in mood lability and management of behaviors/emotions from day to day and often times various times throughout the day. Diagnosis: (obtained from 02/22/18 ED visit and behavioral health consult) History of TBI per history provided by patient's psychiatry staff during previous inpatient at [facility] Cocaine use disorder per history provided by patient's psychiatry staff during previous inpatient at [facility] Cannabis use disorder, severe provided by patient psychiatry staff during previous inpatient at [facility] Somatic Delusion Disorder; with bizarre content provided by patient psychiatry staff during previous inpatient at [facility] Cluster B personality characteristics noted during current [facility] visit and provided by patient psychiatry staff during previous inpatient at [facility] Impression/Plan: Recommendation to maintain IVC patient. Ultimately patient is a velez of the state now and DSS/APS being legal guardian is seeking specialized TBI residential treatment. Patient has continued to wax and wane in her ability to manage behaviors and emotions. Consulted with Dr. Ibarra regarding the management and care of patient. ED Physician in agreement with recommendations.
--- NOTE | 2018-11-02 21:45 | PSYCHOLOGICAL NOTE ---
Psych Note - Psych Note Date seen by psych provider: 10/15/18 Time seen by psych provider: 10:00 Psych Note: Presenting Problem: Initially 24 Hour IVC Petition (10/02/18) due to behavioral outburst while in court Sunday (10/04/18) for competency hearing. She has a Hx of TBI. She had been deemed incompetent and [facility] DSS/APS is legal guardian. No change at this time. Diagnosis: (obtained from 02/22/18 ED visit and behavioral health consult) History of TBI per history provided by patient's psychiatry staff during previous inpatient at [facility] Cocaine use disorder per history provided by patient's psychiatry staff during previous inpatient at [facility] Cannabis use disorder, severe provided by patient psychiatry staff during previous inpatient at [facility] Somatic Delusion Disorder; with bizarre content provided by patient psychiatry staff during previous inpatient at [facility] Cluster B personality characteristics noted during current [facility] visit and provided by patient psychiatry staff during previous inpatient at [facility] Impression/Plan: Recommendation to maintain IVC patient. Ultimately patient is a velez of the state now and DSS/APS being legal guardian is seeking specialized TBI residential treatment. Patient has continued to wax and wane in her ability to manage behaviors and emotions. Consulted with Dr. Ibarra regarding the management and care of patient. ED Physician in agreement with recommendations.
[2018-11-03] MEDS: GABAPENTIN 300 MG CAPSULE PO SCH ×6 (06:54→23:58)
--- NOTE | 2018-11-03 09:40 | ER Document Report ---
Doctor's Note Notes: 11/03/18 09:38 Patient seen and examined. She states she has not had a bowel movement in several days. She states she needs more Colace and suppositories. She states she is stopped drinking as much milk as she was. She continues to complain that she does not want to see "Dr. Agee." Otherwise, she asks if she can go outside before the rain today. She denies any pain. No other acute complaints or concerns. On physical exam this is a pleasant 38-year-old female who appears her stated age in no acute distress. Head is normocephalic and atraumatic. Pupils are equal round, reactive to light. Heart is regular rate and rhythm, lungs are clear station bilaterally. Abdomen is mildly distended but nontender with normoactive bowel sounds. Continuing to seek placement for this patient. Will increase her as needed constipation medications as per request. Discussed with nursing trying to accommodate her going outside this morning. Otherwise, continue current management, will continue to monitor.
[2018-11-03] MEDS: PROPRANOLOL HCL 10 MG TABLET PO SCH ×2 (10:49→23:58)
[2018-11-03] MEDS: DOCUSATE SODIUM 100 MG CAPSULE PO PRN ×2 (10:49→18:01)
[2018-11-03] MEDS: CARBAMAZEPINE 200 MG TABLET PO SCH ×3 (10:50→23:57)
[2018-11-03] MEDS: IBUPROFEN 400 MG TABLET PO SCH ×2 (10:50→17:58)
[2018-11-03] MEDS: FLUTICASONE/VILANTEROL 100-25 MCG/DOSE IH SCH (10:52)
[2018-11-03] MEDS: CETIRIZINE 10 MG TABLET PO SCH (10:52)
[2018-11-03] MEDS: LIDOCAINE 5% (700 MG) TRANSDERMAL ADH..PATCH TP SCH (10:53)
--- NOTE | 2018-11-03 14:01 | PSYCHOLOGICAL NOTE ---
Psych Note - Psych Note Date seen by psych provider: 11/03/18 Time seen by psych provider: 08:37 - Chart review at 0837. Observation of patient and door 0932 and ongoing. 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 She had an interview for residential placement with Mary Kay Kearns at [facility] (10/31/18) from [id number]. Patient remained in her room except to utilize restroom. She had signs on her door, one reportedly had been there a couple days, 2-3 others were added. They talked about knocking before entering, not wanting this clinician or a certain medical doctor to interact with her and that her name is Mac not everyone needs to know her government name. Diagnosis: (obtained from 02/22/18 ED visit and behavioral health consult) History of TBI per history provided by patient's psychiatry staff during previous inpatient at [facility] Cocaine use disorder per history provided by patient's psychiatry staff during previous inpatient at [facility] Cannabis use disorder, severe provided by patient psychiatry staff during previous inpatient at [facility] Somatic Delusion Disorder; with bizarre content provided by patient psychiatry staff during previous inpatient at [facility] Cluster B personality characteristics noted during current [facility] visit and provided by patient psychiatry staff during previous inpatient at [facility] Impression/Plan: Recommendation to maintain IVC. Patient continued to present with waxing and waning in being impulsive and ability to control behaviors/emotions. She has Hx of multiple TBIs and has been deemed incompetent. DSS/APS are legal Guardians and seeking residential TBI placement. Consulted with Dr. Ibarra regarding the management and care of patient. ED Physician in agreement with recommendations.
[2018-11-03] MEDS: BISACODYL 10 MG SUPP.RECT PR PRN (18:01)
[2018-11-04] MEDS: CARBAMAZEPINE 200 MG TABLET PO SCH ×2 (08:00→18:00)
[2018-11-04] MEDS: LIDOCAINE 5% (700 MG) TRANSDERMAL ADH..PATCH TP SCH (08:00)
[2018-11-04] MEDS: PROPRANOLOL HCL 10 MG TABLET PO SCH ×2 (10:00→22:16)
[2018-11-04] MEDS: CETIRIZINE 10 MG TABLET PO SCH (10:00)
[2018-11-04] MEDS: FLUTICASONE/VILANTEROL 100-25 MCG/DOSE IH SCH (10:00)
[2018-11-04] MEDS: IBUPROFEN 400 MG TABLET PO SCH ×2 (11:28→18:00)
[2018-11-04] MEDS: GABAPENTIN 300 MG CAPSULE PO SCH ×5 (11:30→18:00)
[2018-11-04] MEDS: HYDROCORTISONE ACETATE 25 MG SUPP.RECT PR PRN (12:15)
[2018-11-04] MEDS: DOCUSATE SODIUM 100 MG CAPSULE PO PRN (12:15)
--- NOTE | 2018-11-04 14:20 | PSYCHOLOGICAL NOTE ---
Psych Note - Psych Note Date seen by psych provider: 11/04/18 Time seen by psych provider: 08:04 - Chart review at 0804. 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 She had an interview for residential placement with Mary Kay Kearns at [facility] (10/31/18) from [id number]. Yesterday patient was picking and choosing medical staff she preferred to interact with, was still constipated per medical documentation and had reported she was not drinking milk anymore. She remained in her room most of today with door closed. She still had 3 notes on the outside of her door about being called Mac and people she did not want to enter. She was heard yelling out and having a tantrum (but in her room with door closed) when people were being discharged (frustration with still being in the ED, somewhat appropriate). Diagnosis: (obtained from 02/22/18 ED visit and behavioral health consult) History of TBI per history provided by patient's psychiatry staff during previous inpatient at [facility] Cocaine use disorder per history provided by patient's psychiatry staff during previous inpatient at [facility] Cannabis use disorder, severe provided by patient psychiatry staff during prev ious inpatient at [facility] Somatic Delusion Disorder; with bizarre content provided by patient psychiatry staff during previous inpatient at [facility] Cluster B personality characteristics noted during current [facility] visit and provided by patient psychiatry staff during previous inpatient at [facility] Impression/Plan: Recommendation to maintain IVC (has to be reinstated today). Patient continued to present with waxing and waning in being impulsive and ability to control behaviors/emotions. She has Hx of multiple TBIs and has been deemed incompetent. DSS/APS are legal Guardians and seeking residential TBI placement. Consulted with Dr. Ibarra regarding the management and care of patient. ED Physician in agreement with recommendations.
[2018-11-04] MEDS: SIMETHICONE 80 MG TAB.CHEW PO PRN (18:05)
[2018-11-05] MEDS: GABAPENTIN 300 MG CAPSULE PO SCH ×4 (02:37→21:54)
[2018-11-05] MEDS: LIDOCAINE 5% (700 MG) TRANSDERMAL ADH..PATCH TP SCH (08:13)
[2018-11-05] MEDS: CETIRIZINE 10 MG TABLET PO SCH (09:12)
[2018-11-05] MEDS: PROPRANOLOL HCL 10 MG TABLET PO SCH ×2 (09:12→21:54)
[2018-11-05] MEDS: IBUPROFEN 400 MG TABLET PO SCH ×2 (09:12→17:18)
--- NOTE | 2018-11-05 09:56 | ER Document Report ---
Doctor's Note Notes: 11/05/18 09:55 Rounds: Chart reviewed, patient in the shower. Does not want to speak to me anyway, according to the staff. There is been no change in the patient's condition. She is been here for over a month now. She is a velez of the [facility]. Vital signs are all normal. Patient appears to be medically stable for transfer or discharge. Marty Pollack MD
--- NOTE | 2018-11-05 11:16 | PSYCHOLOGICAL NOTE ---
Psych Note - Psych Note Date seen by psych provider: 11/05/18 Time seen by psych provider: 08:06 - Chart review at 0806. Patient initiated interaction with this clinician at 0958. Psych Note: Presenting Problem: IVC, multiple TBIs since reportedly age 7, deemed incompet ent and DSS/APS has Guardianship, residential treatment specific to TBI injury being sought out. She had an interview for residential placement with Mary Kay Kearns at [facility] (10/31/18) from 0930- 2606. Nursing documentation from 0751 noted patient was agitated due to being told she could not shower since the shower facility was not available at that time (again related to developmental age and instant gratification). Then she came out saying she did not want to see (referencing the medical provider on shift today). She initiated interaction with this clinician while she was coming out of the restroom and this clinician was going to see another patient. She stated she had "been good and behaving, I know it's being documented, I want restrictions lifted." When informed this clinician did not put the restrictions in place and it was not up to this clinician patient quickly became agitated and irritable with loud tone and disrespectful words. Attending nurse noted patient has a stack of ester crackers and Ensure in her room. Spoke to Rojelio Farrell from [facility] who stated this morning she emailed the patient account representative from [place] regarding the Interview from last and is awaiting reply. Diagnosis: (obtained from 02/22/18 ED visit and behavioral health consult) History of TBI per history provided by patient's psychiatry staff during previous inpatient at [facility] Cocaine use disorder per history provided by patient's psychiatry staff during previous inpatient at [facility] Cannabis use disorder, severe provided by patient psychiatry staff during previous inpatient at [facility] Somatic Delusion Disorder; with bizarre content provided by patient psychiatry staff during previous inpatient at [facility] Cluster B personality characteristics noted during current [facility] visit and provided by patient psychiatry staff during previous inpatient at [facility] Impression/Plan: Recommendation to maintain IVC. Patient continued to present with waxing and waning in being impulsive and ability to control behaviors/emotions. She has Hx of multiple TBIs and has been deemed incompetent. DSS/APS are legal Guardians and seeking residential TBI placement. Consulted with Dr. Ibarra regarding the management and care of patient. ED Physician in agreement with recommendations.
[2018-11-05] MEDS: SIMETHICONE 80 MG TAB.CHEW PO PRN (16:08)
[2018-11-05] MEDS: DOCUSATE SODIUM 100 MG CAPSULE PO PRN (16:08)
[2018-11-05] MEDS: HYDROCORTISONE ACETATE 25 MG SUPP.RECT PR PRN (16:08)
[2018-11-05] MEDS: ALBUTEROL SULFATE HFA (90 MCG/PUFF) 8 GM MDI (1 MDI/ER DISP) IH PRN (16:28)
[2018-11-06] MEDS: GABAPENTIN 300 MG CAPSULE PO SCH ×3 (06:36→21:30)
[2018-11-06] MEDS: LIDOCAINE 5% (700 MG) TRANSDERMAL ADH..PATCH TP SCH ×2 (09:15→15:01)
[2018-11-06] MEDS: CETIRIZINE 10 MG TABLET PO SCH (09:16)
[2018-11-06] MEDS: PROPRANOLOL HCL 10 MG TABLET PO SCH ×2 (09:16→21:30)
[2018-11-06] MEDS: IBUPROFEN 400 MG TABLET PO SCH (09:17)
[2018-11-06] MEDS: FLUTICASONE/VILANTEROL 100-25 MCG/DOSE IH SCH (09:18)
[2018-11-06] MEDS: DOCUSATE SODIUM 100 MG CAPSULE PO PRN (09:46)
[2018-11-06] MEDS: HYDROCORTISONE ACETATE 25 MG SUPP.RECT PR PRN (09:46)
[2018-11-06] MEDS ORDERED: LIDOCAINE 5% (700 MG) TRANSDERMAL ADH..PATCH TP ONE (12:28)
--- NOTE | 2018-11-06 12:34 | ER Document Report ---
Doctor's Note Notes: 11/06/18 13:51 X-ray of left wrist was ordered and is negative. Patient reported that she had been diagnosed with multiple left wrist fracture prior to coming to the ED by urgent care and she is concerned that she still needs to be in a splint. X-ray does not show any deformity. Patient does not have any deformity on palpation or examination. No splint needed. We are continuing to seek placement for this patient who has a TBI and is a velez of the [facility]. Adult Protective Services does not have a safe place for her to go at this time. We are continuing to watch her and medicate her here. Patient is complaining of muscle spasm on the left side of her neck that is not completely resolved with the lidocaine patches. I have increased her patches from 2-3 patches as she has multiple places on her body that she states hurt. Patient will also be started on low-dose Flexeril for some of the muscle spasm. GENERAL: Standing in room, pacing, complaining about everything that we do. No acute distress. HEAD: Normocephalic, atraumatic EYES: Pupils equal, round and reactive to light, extraocular movements intact. ENT: Oral mucosa moist, tongue midline. NECK: Full range of motion, supple, trachea midline. LUNGS: no respiratory distress. EXTREMITIES: Moves all 4 extremities spontaneously, no edema. No cyanosis. NEUROLOGICAL: Alert and oriented x3, normal speech. PSYCH: Somewhat elevated mood, no pressured speech, no flight of ideas, complaining. She has piece of paper taped all over her door stating who may and may not enter. SKIN: Warm, Dry, normal turgor, no rashes or lesions noted.
--- NOTE | 2018-11-06 12:58 | RADIOLOGY REPORT (SQ) ---
EXAM DESCRIPTION: WRIST LEFT 3 VIEWS COMPLETED DATE/TIME: 11/06/2018 12:46 pm REASON FOR STUDY: left wrist pain F91.9 CONDUCT DISORDER, UNSPECIFIED F91.9 CONDUCT DISORDER, UNSP ECIFIED S06.9X0D UNSP INTRACRANIAL INJURY W/O LOSS OF CONSCIOUSNESS, COMPARISON: None. NUMBER OF VIEWS: Three views. TECHNIQUE: AP, lateral, and oblique radiographic images acquired of the left wrist. LIMITATIONS: None. FINDINGS: MINERALIZATION: Normal. BONES: No acute fracture or dislocation. No worrisome bone lesions. Normal alignment. There is a s mall bone cyst noted in the scaphoid. SOFT TISSUES: No soft tissue swelling. No foreign body. OTHER: No other significant finding. IMPRESSION: No acute findings. TECHNICAL DOCUMENTATION: JOB ID: [id number] [employer]- All Rights Reserved Reading location - IP/workstation name: [email or web address]
--- NOTE | 2018-11-06 13:18 | PSYCHOLOGICAL NOTE ---
Psych Note - Psych Note Date seen by psych provider: 11/06/18 Time seen by psych provider: 07:55 - Chart review at 0755. Observation began at 0816 and was ongoing throughout the day. Psych Note: Presenting Problem: IVC, multiple TBIs since reportedly age 7, deemed incom petent and DSS/APS has Guardianship, residential treatment specific to TBI injury being sought out. She had an interview for residential placement with Mary Kay Kearns at [facility] (10/31/18) from [id number]. 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 Attending nurse noted she had behavioral and impulse control issues when she couldn't use the restroom she wanted because another patient was in it so she had to utilize the other one. Please note the attending nurse was new to patient and had not been a care provider for patient during her stay. Patient asked for environmental therapy. She rearranged her room. Overheard her make condescending remarks about this clinician and sugar refinery supervisor. Diagnosis: (obtained from 02/22/18 ED visit and behavioral health consult) History of TBI per history provided by patient's psychiatry staff during previous inpatient at [facility] Cocaine use disorder per history provided by patient's psychiatry staff during previous inpatient at [facility] Cannabis use disorder, severe provided by patient psychiatry staff during previous inpatient at [facility] Somatic Delusion Disorder; with bizarre content provided by patient psychiatry staff during previous inpatient at [facility] Cluster B personality characteristics noted during current [facility] visit and provided by patient psychiatry staff during previous inpatient at [facility] Impression/Plan: Recommendation to maintain IVC. Patient continued to present with waxing and waning in being impulsive and ability to control behaviors/emotions. She has Hx of multiple TBIs and has been deemed incompetent. DSS/APS are legal Guardians and seeking residential TBI placement. Consulted with Dr. Ibarra regarding the management and care of patient. ED Physician in agreement with recommendations.
[2018-11-06] MEDS: CYCLOBENZAPRINE HCL 10 MG TABLET PO PRN (15:00)
[2018-11-06] MEDS: PROMETHAZINE HCL 25 MG TABLET PO PRN (15:00)
[2018-11-07] MEDS: CYCLOBENZAPRINE HCL 10 MG TABLET PO PRN (06:42)
[2018-11-07] MEDS: GABAPENTIN 300 MG CAPSULE PO SCH ×3 (06:43→22:42)
[2018-11-07] MEDS: IBUPROFEN 400 MG TABLET PO SCH ×3 (06:45→18:26)
[2018-11-07] MEDS: DOCUSATE SODIUM 100 MG CAPSULE PO PRN (10:14)
[2018-11-07] MEDS: PROPRANOLOL HCL 10 MG TABLET PO SCH ×2 (10:14→22:42)
[2018-11-07] MEDS: CETIRIZINE 10 MG TABLET PO SCH (10:14)
[2018-11-07] MEDS: LIDOCAINE 5% (700 MG) TRANSDERMAL ADH..PATCH TP SCH (10:14)
[2018-11-07] MEDS: SIMETHICONE 80 MG TAB.CHEW PO PRN (10:14)
[2018-11-07] MEDS: FLUTICASONE/VILANTEROL 100-25 MCG/DOSE IH SCH (10:20)
[2018-11-07] MEDS: HYDROCORTISONE ACETATE 25 MG SUPP.RECT PR PRN (10:24)
--- NOTE | 2018-11-07 18:21 | ER Document Report ---
Doctor's Note Notes: 11/07/18 18:20 Chart reviewed. Patient is again standing in the hallway this morning, talking with Chinedu Dodd, being difficult to redirect back to her room as she frequently is. She will remain on psych hold while attempts are made to transfer her to a facility. She does remain a velez of the state. 11/08/18 18:48 Patient's behavior is been a little bit better today. She remains on IVC hold while placement continues to be pursued.
[2018-11-08] MEDS: GABAPENTIN 300 MG CAPSULE PO SCH ×3 (06:47→21:24)
[2018-11-08] MEDS: LIDOCAINE 5% (700 MG) TRANSDERMAL ADH..PATCH TP SCH (10:32)
[2018-11-08] MEDS: DOCUSATE SODIUM 100 MG CAPSULE PO PRN (10:33)
[2018-11-08] MEDS: CETIRIZINE 10 MG TABLET PO SCH (10:33)
[2018-11-08] MEDS: SIMETHICONE 80 MG TAB.CHEW PO PRN (10:33)
[2018-11-08] MEDS: HYDROCORTISONE ACETATE 25 MG SUPP.RECT PR PRN (10:33)
[2018-11-08] MEDS: FLUTICASONE/VILANTEROL 100-25 MCG/DOSE IH SCH (10:33)
[2018-11-08] MEDS: PROPRANOLOL HCL 10 MG TABLET PO SCH ×2 (10:33→21:24)
[2018-11-08] MEDS: IBUPROFEN 400 MG TABLET PO SCH ×2 (10:33→18:48)
[2018-11-08] MEDS ORDERED: CARBAMAZEPINE 200 MG TABLET PO SCH (11:00)
[2018-11-08] MEDS: CARBAMAZEPINE 200 MG TABLET PO SCH ×2 (21:23→21:24)
[2018-11-09] MEDS: GABAPENTIN 300 MG CAPSULE PO SCH ×3 (06:04→22:33)
--- NOTE | 2018-11-09 10:23 | ER Document Report ---
Doctor's Note Notes: 11/09/18 10:20 Rounds: Patient no actually seen because she has the door closed in a sign saying that no injury. Particularly, patient does not wish to see me. Vital signs are all normal. No change in condition. Has been here since October 02. Patient appears to be medically stable for transfer or discharge. Marty Pollack MD
[2018-11-09] MEDS: CETIRIZINE 10 MG TABLET PO SCH (10:33)
[2018-11-09] MEDS: LIDOCAINE 5% (700 MG) TRANSDERMAL ADH..PATCH TP SCH (10:33)
[2018-11-09] MEDS: IBUPROFEN 400 MG TABLET PO SCH ×2 (10:33→18:20)
[2018-11-09] MEDS: CARBAMAZEPINE 200 MG TABLET PO SCH ×3 (10:34→22:33)
[2018-11-09] MEDS: FLUTICASONE/VILANTEROL 100-25 MCG/DOSE IH SCH (10:34)
[2018-11-09] MEDS: PROPRANOLOL HCL 10 MG TABLET PO SCH ×2 (10:34→22:33)
[2018-11-09] MEDS: HYDROCORTISONE ACETATE 25 MG SUPP.RECT PR PRN (11:17)
[2018-11-09] MEDS: DOCUSATE SODIUM 100 MG CAPSULE PO PRN (11:17)
[2018-11-09] MEDS: ALBUTEROL SULFATE HFA (90 MCG/PUFF) 8 GM MDI (1 MDI/ER DISP) IH PRN (11:18)
--- NOTE | 2018-11-09 13:51 | PSYCHOLOGICAL NOTE ---
Psych Note - Psych Note Date seen by psych provider: 11/09/18 Psych Note: Patient has received clinical approval from [place] in [place]. They are now working on contacting [place] Medicaid/[employer] to begin the funding request process. We are hoping to hear a status update on Sunday.
[2018-11-10] MEDS: GABAPENTIN 300 MG CAPSULE PO SCH ×3 (07:11→21:05)
[2018-11-10] MEDS: FLUTICASONE/VILANTEROL 100-25 MCG/DOSE IH SCH (10:33)
[2018-11-10] MEDS: SIMETHICONE 80 MG TAB.CHEW PO PRN (10:34)
[2018-11-10] MEDS: LIDOCAINE 5% (700 MG) TRANSDERMAL ADH..PATCH TP SCH (10:34)
[2018-11-10] MEDS: CETIRIZINE 10 MG TABLET PO SCH (10:34)
[2018-11-10] MEDS: IBUPROFEN 400 MG TABLET PO SCH ×2 (10:34→18:29)
[2018-11-10] MEDS: CARBAMAZEPINE 200 MG TABLET PO SCH ×3 (10:34→21:05)
[2018-11-10] MEDS: CYCLOBENZAPRINE HCL 10 MG TABLET PO PRN (10:34)
[2018-11-10] MEDS: DOCUSATE SODIUM 100 MG CAPSULE PO PRN ×2 (10:35→21:05)
[2018-11-10] MEDS: PROMETHAZINE HCL 25 MG TABLET PO PRN (10:35)
[2018-11-10] MEDS: PROPRANOLOL HCL 10 MG TABLET PO SCH ×2 (10:35→21:05)
[2018-11-10] MEDS: ALBUTEROL SULFATE HFA (90 MCG/PUFF) 8 GM MDI (1 MDI/ER DISP) IH PRN (10:36)
[2018-11-10] MEDS: HYDROCORTISONE ACETATE 25 MG SUPP.RECT PR PRN (10:48)
--- NOTE | 2018-11-10 14:56 | PSYCHOLOGICAL NOTE ---
Psych Note - Psych Note Date seen by psych provider: 11/10/18 Time seen by psych provider: 08:29 - Chart review at 0829. Observation at 1038 and ongoing. 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 She had an interview for residential placement with Mary Kay Kearns at [facility] (10/31/18) from [phone]. On 11/08/[address] Ibarra of interactions with the [place] facility. Patient has been clinically approved and now DSS/APS is working on Medicaid/[employer] funding. Today patient was engaged with medical staff, saying hello to individuals she liked and carrying on conversations. Overnight she remained in her room and quiet. She showered this morning. Emailed Rojelio Farrell with DSS/APS information about hospitals and doctors in [place] she mentioned to this clinician from a previous interaction on 10/22/18. It should have been emailed already but unsure if it had been. Diagnosis: (obtained from 02/22/18 ED visit and behavioral health consult) History of TBI per history provided by patient's psychiatry staff during previous inpatient at [facility] Cocaine use disorder per history provided by patient's psychiatry staff during previous inpatient at [facility] Cannabis use disorder, severe provided by patient psychiatry staff during previous inpatient at [facility] Somatic Delusion Disorder; with bizarre content provided by patient psychiatry staff during previous inpatient at [facility] Cluster B personality characteristics noted during current [facility] visit and provided by patient psychiatry staff during previous inpatient at [facility] Impression/Plan: Recommendation to maintain IVC. Patient continued to present with waxing and waning in being impulsive and ability to control behaviors/emotions. She has Hx of multiple TBIs and has been deemed incompetent. DSS/APS are legal Guardians and seeking residential TBI placement. Consulted with Dr. Ibarra regarding the management and care of patient. ED Physician in agreement with recommendations.
--- NOTE | 2018-11-10 19:15 | ER Document Report ---
Doctor's Note Notes: 11/10/18 19:14 A TBI clinic in [place] has apparently interviewed the patient and accepted them however we are awaiting approval of funding for this placement from the [facility]. Patient remains a social hold in the emergency department as she is a velez of this date due to being mentally impaired from her TBI. Adult Protective Services continues to maintain that they do not have a safe place for her to go and due to this she fits involuntary commitment criteria due to her high risk behavior from her TBI. Patient states she is feeling much better since we have allowed her to have 3 lidocaine patches. I have once again emphasized to the patient and to nursing staff that nursing staff is correct to be removing these every 12 hours, leaving him off for 12 hours and then replacing them. Patient has no other complaints for me at this time. Relatively quiet and cooperative overnight. GENERAL: Alert, interacts well. No acute distress. HEAD: Normocephalic, atraumatic EYES: Pupils equal, round and reactive to light, extraocular movements intact. ENT: Oral mucosa moist, tongue midline. NECK: Full range of motion, supple, trachea midline. LUNGS: no respiratory distress. EXTREMITIES: Moves all 4 extremities spontaneously, no edema. No cyanosis. NEUROLOGICAL: Alert and oriented x3, normal speech. PSYCH: Normal mood, normal affect. SKIN: Warm, Dry, normal turgor, no rashes or lesions noted.
[2018-11-11] MEDS: GABAPENTIN 300 MG CAPSULE PO SCH ×3 (06:27→21:26)
[2018-11-11] MEDS: CARBAMAZEPINE 200 MG TABLET PO SCH ×3 (10:44→21:29)
[2018-11-11] MEDS: PROPRANOLOL HCL 10 MG TABLET PO SCH ×2 (10:44→21:26)
[2018-11-11] MEDS: CETIRIZINE 10 MG TABLET PO SCH (10:44)
[2018-11-11] MEDS: LIDOCAINE 5% (700 MG) TRANSDERMAL ADH..PATCH TP SCH (10:45)
[2018-11-11] MEDS: FLUTICASONE/VILANTEROL 100-25 MCG/DOSE IH SCH (10:46)
[2018-11-11] MEDS: IBUPROFEN 400 MG TABLET PO SCH ×2 (10:50→18:33)
--- NOTE | 2018-11-11 10:53 | ER Document Report ---
Doctor's Note Notes: 11/11/18 10:52 I have evaluated this pt. this am and she has no c/o at this time. She feels all of her needs are being met and her physical exam is normal. She is awaiting disposition per mental health.
[2018-11-12] MEDS: GABAPENTIN 300 MG CAPSULE PO SCH ×3 (05:50→23:11)
--- NOTE | 2018-11-12 07:15 | PSYCHOLOGICAL NOTE ---
Psych Note - Psych Note Date seen by psych provider: 11/11/18 Time seen by psych provider: 08:13 - Chart review at 0813. Ongoing observation throughout the day. Interaction at 1153. 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 She had an interview for residential placement with Mary Kay Kearns at [facility] (10/31/18) from [phone]. On 11/08/[address] Ibarra of interactions with the [place] facility. Patient has been clinically approved and now DSS/APS is working on Medicaid/[employer] funding. Overnight medical staff documented patient slept well and was calm/cooperative. Today she initiated interaction with this clinician which was appropriate, she was engaged, had dialogue conversation and accepted information. She wanted to make a phone call to APS was reminded she could have two phone calls and [facility]. She inquired about getting her mail. She was made aware the other [facility] worker left the APS worker a voice mail about her mail. She mentioned getting her mail forwarded to the place in [place]. She was informed this would be a good idea once she was there. Patient asked about talking with APS and was told the other [facility] clinician would be working tomorrow and would make contact with APS. Medical staff inquired about who could bring the personal hygiene items listed in a document from the other [facility] clinician. After checking in with that clinician it was anyone as long as the items were what was listed, kept behind nurses station and patient allowed to use if she had appropriate behaviors. Diagnosis: (obtained from 02/22/18 ED visit and behavioral health consult) History of TBI per history provided by patient's psychiatry staff during previous inpatient at [facility] Cocaine use disorder per history provided by patient's psychiatry staff during previous inpatient at [facility] Cannabis use disorder, severe provided by patient psychiatry staff during previous inpatient at [facility] Somatic Delusion Disorder; with bizarre content provided by patient psychiatry staff during previous inpatient at [facility] Cluster B personality characteristics noted during current [facility] visit and provided by patient psychiatry staff during previous inpatient at [facility] Impression/Plan: Recommendation to maintain IVC (reinstated IVC). She has Hx of multiple TBIs, has been deemed incompetent, DSS/APS are legal Guardians and seeking residential TBI placement. The facility in [place] has accepted clinically and now APS is working on funding from Medicaid/[employer]. Patient has impulse control issues, inability to control emotions, inability to manage behaviors and often has behaviors that are risky and allow for being taken advantage of. Consulted with Dr. Ibarra regarding the management and care of patient. ED Physician in agreement with recommendations.
[2018-11-12] MEDS: PROPRANOLOL HCL 10 MG TABLET PO SCH ×2 (09:23→23:10)
[2018-11-12] MEDS: IBUPROFEN 400 MG TABLET PO SCH ×2 (09:24→17:17)
[2018-11-12] MEDS: FLUTICASONE/VILANTEROL 100-25 MCG/DOSE IH SCH (09:24)
[2018-11-12] MEDS: LIDOCAINE 5% (700 MG) TRANSDERMAL ADH..PATCH TP SCH (09:24)
[2018-11-12] MEDS: CARBAMAZEPINE 200 MG TABLET PO SCH ×2 (09:24→23:11)
[2018-11-12] MEDS: CETIRIZINE 10 MG TABLET PO SCH (09:24)
--- NOTE | 2018-11-12 10:31 | ER Document Report ---
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 She is difficult placement and [place] is potential destination. Continue medicines. She has no specific complaints to me at this time. She does express a desire to leave here.
[2018-11-13] MEDS: GABAPENTIN 300 MG CAPSULE PO SCH ×3 (08:19→22:22)
[2018-11-13] MEDS: CARBAMAZEPINE 200 MG TABLET PO SCH ×3 (08:19→22:23)
--- NOTE | 2018-11-13 09:56 | ER Document Report ---
Doctor's Note Notes: 11/13/18 09:55 Rounds: Chart reviewed and patient interviewed. Complains of headache today. Walking around the emergency department and pod 4 without any problems. Looks well. Vital signs are all normal. Patient awaiting placement somewhere. She has been a an inpatient at this emergency department since October 02. Patient appears to be medically stable for transfer or discharge. Marty Pollack MD
[2018-11-13] MEDS: FLUTICASONE/VILANTEROL 100-25 MCG/DOSE IH SCH (10:57)
[2018-11-13] MEDS: IBUPROFEN 400 MG TABLET PO SCH (10:58)
[2018-11-13] MEDS: CETIRIZINE 10 MG TABLET PO SCH (10:58)
[2018-11-13] MEDS: PROPRANOLOL HCL 10 MG TABLET PO SCH ×2 (10:58→22:21)
[2018-11-13] MEDS: LIDOCAINE 5% (700 MG) TRANSDERMAL ADH..PATCH TP SCH (10:59)
[2018-11-14] MEDS: GABAPENTIN 300 MG CAPSULE PO SCH ×3 (07:35→22:46)
[2018-11-14] MEDS: CARBAMAZEPINE 200 MG TABLET PO SCH ×3 (08:01→22:46)
[2018-11-14] MEDS: CETIRIZINE 10 MG TABLET PO SCH (10:28)
[2018-11-14] MEDS: FLUTICASONE/VILANTEROL 100-25 MCG/DOSE IH SCH (10:28)
[2018-11-14] MEDS: LIDOCAINE 5% (700 MG) TRANSDERMAL ADH..PATCH TP SCH (10:28)
[2018-11-14] MEDS: PROPRANOLOL HCL 10 MG TABLET PO SCH (10:28)
[2018-11-14] MEDS ORDERED: TUBERCULIN,PURIF.PROT.DERIV. 5 TU/0.1 ML TEST 1 ML VIAL ID ONE (14:49)
--- NOTE | 2018-11-14 15:47 | RADIOLOGY REPORT (SQ) ---
EXAM DESCRIPTION: CHEST 2 VIEWS COMPLETED DATE/TIME: 11/14/2018 3:35 pm REASON FOR STUDY: For placement in alf COMPARISON: Chest film 02/22/2018, 11/24/2016 EXAM PARAMETERS: NUMBER OF VIEWS: two views TECHNIQUE: Digital Frontal and Lateral radiographic views of the chest acquired. RADIATION DOSE: NA LIMITATIONS: none FINDINGS: LUNGS AND PLEURA: No opacities, masses or pneumothorax. No pleural effusion. MEDIASTINUM AND HILAR STRUCTURES: No masses or contour abnormalities. HEART AND VASCULAR STRUCTURES: Heart normal size. No evidence for failure. BONES: No acute findings. HARDWARE: None in the chest. OTHER: No other significant finding. IMPRESSION: NO ACUTE RADIOGRAPHIC FINDING IN THE CHEST. TECHNICAL DOCUMENTATION: JOB ID: [id number] [employer]- All Rights Reserved Reading location - IP/workstation name: [email or web address]
--- NOTE | 2018-11-14 16:02 | PSYCHOLOGICAL NOTE ---
Psych Note - Psych Note Date seen by psych provider: 11/14/18 Time seen by psych provider: 09:36 - Interaction with patient at 0936. DSS/APS made contact [place] 1045 about [place]. [place] noted clinically appropriate and waiting on funding at 1312. 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 She had an interview for residential placement with Mary Kay Kearns at [facility] (10/31/18) from [phone]. On 11/08/[address] Ibarra of interactions with the [facility]. Patient has been clinically approved and now DSS/APS is working on Medicaid/[employer] funding. Today (11/14/18) facility in [place] spoke to APS and Dr. Ibarra, patient is clinically appropriate and now just need the financial funding (Marty Ortega is in charge of funding, this particular facility already has 3 way contracts, is not a locked facility). Patient had positive and appropriate interactions with all staff today to include this clinician. She inquired about emailing or contacting the 2 facilities, said she was ready to get out of the hospital and noted wanting to be able to get fresh air. She was easily redirected. She had more euthymic mood with bright affect without mood lability. Diagnosis: (obtained from 02/22/18 ED visit and behavioral health consult) History of TBI per history provided by patient's psychiatry staff during previous inpatient at [facility] Cocaine use disorder per history provided by patient's psychiatry staff during previous inpatient at [facility] Cannabis use disorder, severe provided by patient psychiatry staff during previous inpatient at [facility] Somatic Delusion Disorder; with bizarre content provided by patient psychiatry staff during previous inpatient at [facility] Cluster B personality characteristics noted during current [facility] visit and provided by patient psychiatry staff during previous inpatient at [facility] Requests made for residential placement: Chest X-Ray PPD/TB Impression/Plan: Recommendation to maintain IVC. She has Hx of multiple TBIs, has been deemed incompetent, DSS/APS are legal Guardians and seeking residential TBI placement. The facility in [place] has accepted clinically and now APS is working on funding from Medicaid/[employer]. The facility in [place] has deemed patient clinically appropriate and now are working on three way contract for funding. Patient has impulse control issues, inability to control emotions, inability to manage behaviors and often has behaviors that are risky and allow for being taken advantage of. Today was a day of positive and appropriate interactions. There was no mood lability. Consulted with Dr. Ibarra regarding the management and care of patient. ED Physician in agreement with recommendations.
--- NOTE | 2018-11-14 19:23 | ER Document Report ---
Doctor's Note Notes: 11/14/18 19:12 Rounds: Late entry. No change in condition for this patient. She has been staying in our emergency department since October 02. Vital signs remained stable and normal. No new labs to review. Patient appears to be medically stable for transfer or discharge. Marty Pollack MD
[2018-11-15] MEDS: GABAPENTIN 300 MG CAPSULE PO SCH ×2 (06:10→14:54)
[2018-11-15] MEDS ORDERED: TUBERCULIN,PURIF.PROT.DERIV. 5 TU/0.1 ML TEST 1 ML VIAL ID ONE (09:00)
[2018-11-15] MEDS: LIDOCAINE 5% (700 MG) TRANSDERMAL ADH..PATCH TP SCH (09:31)
[2018-11-15] MEDS: CARBAMAZEPINE 200 MG TABLET PO SCH ×2 (09:31→17:20)
[2018-11-15] MEDS: CETIRIZINE 10 MG TABLET PO SCH (09:31)
[2018-11-15] MEDS: FLUTICASONE/VILANTEROL 100-25 MCG/DOSE IH SCH (10:14)
--- NOTE | 2018-11-15 10:58 | ER Document Report ---
Doctor's Note Notes: 11/15/18 10:57 I have evaluated this pt. this am and she has no c/o at this time. She feels all of her needs are being met and her physical exam is normal. She is awaiting disposition per mental health.
[2018-11-16] MEDS: GABAPENTIN 300 MG CAPSULE PO SCH ×4 (00:13→22:47)
[2018-11-16] MEDS: CARBAMAZEPINE 200 MG TABLET PO SCH ×4 (00:14→22:48)
--- NOTE | 2018-11-16 09:32 | ER Document Report ---
Doctor's Note Notes: 11/16/18 09:31 Vital signs are stable. No acute complaints. Awaiting placement and APS.
[2018-11-16] MEDS: CETIRIZINE 10 MG TABLET PO SCH (10:13)
[2018-11-16] MEDS: FLUTICASONE/VILANTEROL 100-25 MCG/DOSE IH SCH (10:14)
[2018-11-16] MEDS: LIDOCAINE 5% (700 MG) TRANSDERMAL ADH..PATCH TP SCH (10:15)
[2018-11-16] MEDS: BISACODYL 10 MG SUPP.RECT PR PRN (10:52)
[2018-11-16] MEDS: DOCUSATE SODIUM 100 MG CAPSULE PO PRN (10:55)
[2018-11-16] MEDS ORDERED: CHLORPROMAZINE HCL 50 MG TABLET PO PRN (12:20)
[2018-11-16] MEDS: PROPRANOLOL HCL 20 MG TABLET PO SCH ×2 (13:17→18:02)
[2018-11-17] MEDS: CARBAMAZEPINE 200 MG TABLET PO SCH ×3 (08:00→21:36)
[2018-11-17] MEDS: GABAPENTIN 300 MG CAPSULE PO SCH ×3 (08:00→21:36)
--- NOTE | 2018-11-17 09:19 | ER Document Report ---
Doctor's Note Notes: 11/17/18 09:18 Patient has been here for an extended period of time as a social hold. Supposedly the patient will be transferred tomorrow there [facility] according to behavioral health and social work report here at this facility. Vital signs are stable with no complaints overnight.
[2018-11-17] MEDS: CETIRIZINE 10 MG TABLET PO SCH (09:25)
[2018-11-17] MEDS: PROPRANOLOL HCL 20 MG TABLET PO SCH ×2 (09:25→17:51)
[2018-11-17] MEDS: LIDOCAINE 5% (700 MG) TRANSDERMAL ADH..PATCH TP SCH (09:26)
[2018-11-17] MEDS: FLUTICASONE/VILANTEROL 100-25 MCG/DOSE IH SCH (10:43)
--- NOTE | 2018-11-17 12:10 | PSYCHOLOGICAL NOTE ---
Psych Note - Psych Note Date seen by psych provider: 11/17/18 Time seen by psych provider: 07:48 - Chart review at 0748. Evaluation/interaction from [id number]. 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 She had an interview for residential placement with Mary Kay Kearns at [facility] (10/31/18) from [id number]. On 11/08/[address] Ibarra of interactions with the [facility]. Patient has been clinically approved and now DSS/APS is working on Medicaid/[employer] funding. On 11/14/18 a facility in [place] spoke to APS and Dr. Ibarra, patient is clinically appropriate and now just need the financial funding (Marty Ortega is in charge of funding, this [facility] facility already has 3 way contracts, is not a locked facility). Chart review indicted patient had some negative attitude but recognized it and later apologized for it. Today she was appropriate with behaviors and interactions. She inquired about placement and said something is supposed to take place by DSS tomorrow. She stated "I'm ready to get out of this hospital." Diagnosis: (obtained from 02/22/18 ED visit and behavioral health consult) History of TBI per history provided by patient's psychiatry staff during previous inpatient at [facility] Cocaine use disorder per history provided by patient's psychiatry staff during previous inpatient at [facility] Cannabis use disorder, severe provided by patient psychiatry staff during previous inpatient at [facility] Somatic Delusion Disorder; with bizarre content provided by patient psychiatry staff during previous inpatient at [facility] Cluster B personality characteristics noted during current [facility] visit and provided by patient psychiatry staff during previous inpatient at [facility] Impression/Plan: Recommendation to maintain IVC. She has Hx of multiple TBIs, has been deemed incompetent, DSS/APS are legal Guardians and seeking residential TBI placement. The facility in [place] has accepted clinically and now APS is working on funding from Medicaid/[employer]. The facility in [place] has deemed patient clinically appropriate and now are working on three way contract for funding. Patient has impulse control issues, inability to control emotions, inability to manage behaviors and often has behaviors that are risky and allow for being taken advantage of. Patient is expected to wax and wane with behaviors given she is not in the correct environment therapeutically. Consulted with Dr. Ibarra regarding the management and care of patient. ED Physician in agreement with recommendations.
[2018-11-17] MEDS: SIMETHICONE 80 MG TAB.CHEW PO PRN ×2 (17:51→21:35)
[2018-11-17] MEDS: IBUPROFEN 400 MG TABLET PO PRN (17:52)
[2018-11-18] MEDS: HYDROCORTISONE ACETATE 25 MG SUPP.RECT PR PRN (07:12)
[2018-11-18] MEDS: CARBAMAZEPINE 200 MG TABLET PO SCH ×2 (07:12→15:51)
[2018-11-18] MEDS: SIMETHICONE 80 MG TAB.CHEW PO PRN (07:13)
[2018-11-18] MEDS: DOCUSATE SODIUM 100 MG CAPSULE PO PRN (07:13)
[2018-11-18] MEDS: GABAPENTIN 300 MG CAPSULE PO SCH ×2 (07:13→13:43)
[2018-11-18] MEDS: CETIRIZINE 10 MG TABLET PO SCH (10:00)
[2018-11-18] MEDS: PROPRANOLOL HCL 20 MG TABLET PO SCH ×2 (10:00→17:05)
[2018-11-18] MEDS: IBUPROFEN 400 MG TABLET PO PRN (10:00)
[2018-11-18] MEDS: FLUTICASONE/VILANTEROL 100-25 MCG/DOSE IH SCH (10:01)
[2018-11-18] MEDS: LIDOCAINE 5% (700 MG) TRANSDERMAL ADH..PATCH TP SCH (10:01)
--- NOTE | 2018-11-18 12:03 | PSYCHOLOGICAL NOTE ---
Psych Note - Psych Note Date seen by psych provider: 11/18/18 Psych Note: Presenting Problem: Multiple TBIs since reportedly age 7, deemed incompetent and DSS/APS has Guardianship, residential treatment specific to TBI injury being sought out. She had an interview for residential placement with Mary Kay Kearns at [facility] 10/31/18 and on 11/14/18 a facility in [place] spoke to APS and Dr. Ibarra, both state patient is clinically appropriate and now just need the financial funding. Diagnosis: (obtained from 02/22/18 ED visit and behavioral health consult) History of TBI per history provided by patient's psychiatry staff during previous inpatient at [facility] Cocaine use disorder per history provided by patient's psychiatry staff during previous inpatient at [facility] Cannabis use disorder, severe provided by patient psychiatry staff during previous inpatient at [facility] Somatic Delusion Disorder; with bizarre content provided by patient psychiatry staff during previous inpatient at [facility] Cluster B personality characteristics noted during current [facility] visit and provided by patient psychiatry staff during previous inpatient at [facility] Impression/Plan: Patient has impulse control issues, inability to control emotions, inability to manage behaviors and often has behaviors that are risky and allow for being taken advantage of. These behaviors are expected and common given TBI history and thus organic deficits. Patient is expected to wax and wane with behaviors given she is not in the correct environment therapeutically (has been in the ED since 10/02/18). Patient has remained stable on current medication regimen. The IVC expires today and it will not be renewed thus it will be rescinded. All our previous recommendations remain in place to specifically include one to one individual support if placed in a community based setting. Additionally we recommend current medication regimen as is, individual therapy, psychosocial skill building, independent living skills and structured predictable schedule. Consulted with Dr. Ibarra regarding the management and care of patient. ED Physician in agreement with recommendations.
--- NOTE | 2018-11-18 13:08 | ER Document Report ---
Doctor's Note Notes: 11/18/18 13:06 Rounds: Patient has been here since October 02. Patient is calm and quiet and cooperative. No change in condition. Vital signs are all normal. Patient appears to be medically stable for transfer or discharge. Marty Pollack MD 11/18/18 16:11 I have been made aware that this patient has a place to go and that someone would be picking her up later this afternoon. Marty Pollack MD
[2018-11-18 17:05] VITALS: BP 114/64
== END 2018-11-18 17:46 | disposition home or self-care (01) ==
LOC: EEVIPCON 14:19 → ER 14:19
DX: F91.9 Conduct disorder, unspecified (principal); S06.9X0D Unspecified intracranial injury without loss of consciousness, subsequent encounter; F17.200 Nicotine dependence, unspecified, uncomplicated; M54.5 Low back pain; R14.0 Abdominal distension (gaseous); K64.9 Unspecified hemorrhoids; K59.00 Constipation, unspecified; R51 Headache; Z86.73 Personal history of transient ischemic attack (TIA), and cerebral infarction without residual deficits; Z87.820 Personal history of traumatic brain injury; Z88.6 Allergy status to analgesic agent; Z90.49 Acquired absence of other specified parts of digestive tract; Z90.710 Acquired absence of both cervix and uterus; Z88.0 Allergy status to penicillin; Z91.040 Latex allergy status
CPT/HCPCS: 93005 ×3; 96376; 99285; 96372; 90471; 90472; 96374; 96375; 36415; 82962; 80307 ×4; 85025; 81025; 80048; 80053; 81001; 93010 ×3; J3490 ×322; J3230; J1200; J1885 ×3; S0119; J2060; J2550 ×2; S0183